=== PATIENT | female | born 1980 | race African-American/Black ===

== ENCOUNTER 2024-01-14 12:21 | Emergency (ER) | payer OTHER ==
--- OUTSIDE RECORDS SUMMARY | 2024-01-14 12:23 | XMS REPORT | Continuity of Care Document ---
Author Name Unknown Address [address] [facility] [address] [place], [place] [id number] [place] [address] [facility] Address [address] [facility] [address] [place] [address] Care Team Providers Care Drug Coordinator Name Role Phone Pcp, Patient Does Not Have A Primary Care Physic mikala Campaigns, Generic Provider Attending Clinician Unavailable ALEXANDRE SNYDER Attending Clinician UnavailALEXANDRE Pichardo Attending Clinician UnavailAlexandre Pichardo MD Attending Clinician Silvino Bae MD Attending Clinician [phone] SILVINO BAE Attending Clinician Unavailable SILVINO BAE Attending Clinician Unavailable ADAM RHODES Admitting Clinician UnavailSILVINO Knight Admitting Clinician Unavailable Payers Payer Name Policy Type Policy Number Effective Date Expirati on Date Source Allergies, Adverse Reactions, Alerts Allergy Name Allergy Type Status Severity Reaction(s) Onset Date Inactive Date Treating Clinician Comments Source Shellfis h Derived Propensi ty to adverse reaction s Active Anaphylaxis 10-17 00:00: 00 [facility] PROCHLOR PERAZINE DRUG INGREDI Active Anaphylaxis - 00:00: 00 [facility] SHELLFIS H DERIVED DRUG INGREDI Active Anaphylaxis 10-17 00:00: 00 [facility] IODINE DRUG INGREDI Active Anaphylaxis 10-17 00:00: 00 [facility] Prochlor perazine Propensi ty to adverse reaction s Active Anaphylaxis 10-17 00:00: 00 [facility] Iodine Propensi ty to adverse reaction s Active Anaphylaxis 10-17 00:00: 00 [facility] NO KNOWN ALLERGIE S Drug Class Active [facility] Social History Social Habit Start Date Stop Date Quantity Comments Source Sexual orientation U [facility] Sex assigned at 1980 00:00:00 1980 00:00:00 [facility] Smoking Status Start Date Stop Date Source Tobacco smoking consumption unknown [facility] Medications Ordered Medication Name Filled Medication Name Start Date Stop Date Current Medication? Ordering Clinician Indication Dosage Frequency Signature (SIG) Comments Components Source predniSONE 20 mg tablet 10-27 00:00: 00 11-01 04:59 :00 Yes [id number] 40mg Take 2 tablets by mouth in the morning for 4 days. [facility] furosemide (LASIX) injection 40 mg 10-26 23:15: 00 10-26 23:40 :00 No 40mg 40 mg, IV Push, ONCE, 1 dose, On Tue10/27/23 at 1815, VALENTINE [facility] ipratropium -albuteroL (DUONEB) 0.5 mg-3 mg(2.5 mg base)/3 mL nebulizer solution 3 mL 10-26 23:00: 00 10-26 22:21 :00 No 3mL 3 mL, Inhalation , ONCE, 1 dose, On Liyah 10/27/23 at 1800, Routine [facility] dexamethaso ne sod phos PF injection 10 mg 10-26 22:15: 00 10-26 22:21 :00 No 10mg 10 mg, Slow IV Push, ONCE, 1 dose, On Liyah 10/27/23 at 1715, 1 mL [facility] furosemide 20 mg tablet 10-26 00:00: 00 11-03 04:59 :00 Yes [id number] 40mg Take 2 tablets by mouth in the morning for 7 days. [facility] magnesium sulfate in water 2 gram/50 mL (4 %) infusion 2 g 10-17 21:15: 00 10-17 21:01 :00 No 2g 2 g, IV Piggyback, Administer over 15 Minutes, ONCE, 1 dose, On Tue10/18/23 at 1615, Routine [facility] methocarbam oL (ROBAXIN) injection 1,000 mg 10-17 19:45: 00 10-17 20:01 :00 No 1000mg 1,000 mg, Slow IV Push, Administer over 3-5 Minutes, ONCE, 1 dose, On Tue10/18/23 at 1445, Routine [facility] ketorolac (TORADOL) injection 15 mg 10-17 19:45: 00 10-17 19:58 :00 No 15mg 15 mg, Slow IV Push, ONCE, 1 dose, On Tue10/18/23 at 1445, Routine [facility] meclizine (TRAVEL-EAS E (MECLIZINE) ) tablet 25 mg 10-17 19:00: 00 10-17 19:58 :00 No 25mg 25 mg, Oral, ONCE, 1 dose, On Tue10/18/23 at 1400, VALENTINE [facility] meclizine 25 mg tablet 10-17 00:00: 00 Yes [id number] 25mg Take 1 tablet by mouth 3 (three) times daily as needed for Dizziness or Nausea. [facility] methocarbam oL 750 mg tablet 10-17 00:00: 00 Yes [id number] 750mg Take 1 tablet by mouth 4 (four) times daily. [facility] Vital Signs Vital Name Observation Time Observation Value Comments S ourmonica Systolic blood pressure 2023-10-27 21:54:00 140 mm[Hg] [facility] Diastolic blood pressure 2023-10-27 21:54:00 89 mm[Hg] [facility] Heart rate 2023-10-27 21:54:00 69 /min [facility] Respiratory rate 2023-10-27 21:54:00 18 /min [facility] Oxygen saturation in Arterial blood by Pulse oximetry 2023-10-27 21:54:00 97 /min [facility] Body temperature 2023-10-27 18:20:00 36.94 Natty [facility] Body height 2023-10-27 18:17:00 157.5 cm [facility] Body weight 2023-10-27 18:17:00 122.471 kg [facility] BMI 2023-10-27 18:17:00 49.38 kg/m2 [facility] Heart rate 2023-10-18 21:45:00 78 /min [facility] Oxygen saturation in Arterial blood by Pulse oximetry 2023-10-18 21:45:00 99 /min [facility] Systolic blood pressure 2023-10-18 21:30:00 118 mm[Hg] [facility] Diastolic blood pressure 2023-10-18 21:30:00 75 mm[Hg] [facility] Respiratory rate 2023-10-18 21:30:00 18 /min [facility] Body height 2023-10-18 17:38:00 157.5 cm [facility] Body temperature 2023-10-18 17:37:00 36.28 Natty [facility] Body weight 2023-10-18 17:37:00 122.471 kg [facility] BMI 2023-10-18 17:37:00 49.38 kg/m2 [facility] Procedures Procedure Date / Time Performed Performing Clinicia n Source POCT GLUCOSE (AUTOMATED) 2023-10-27 21:53:00 Alexandre Snyder [facility] TROPONIN I 2023-10-27 20:08:00 Jignesh Castro [facility] COMP. METABOLIC PANEL ([id number]) 2023-10-27 20:08:00 Jignesh Castro [facility] CBC WITH DIFF 2023-10-27 20:08[facility] 2023-10-27 20:08[facility] 2023-10-27 18:58:00 [facility] 2023-10-18 20:50:00 [facility] CHEST 2 VW 2023-10-18 19:55:35 Lila Cooper [facility] TROPONIN I 2023-10-18 19:47:00 [facility] COMP. METABOLIC PANEL ([id number]) 2023-10-18 19:47:00 Lila Cooper [facility] CBC WITH DIFF 2023-10-18 19:47:00 Lila Cooper [facility] N-TERMINAL PRO-BNP 2023-10-18 19:47:00 Lila Cooper [facility] CT HEAD WO CONTRAST 2023-10-18 19:34:52 Nicki Cooper [facility] Encounters Start Date/Time End Date/Time Encounter Type Admission Type Attending [facility] Care Department Encounter ID Source 2023-11-30 17:10:57 2023-11-30 17:10:57 Outpatient SFA SFA [id number] Alexandre Gusman 2023-11-09 00:00:00 2023-11-09 11:47:00 Letter (Out) Campaigns, Generic Provider Campaigns, Generic Provider [facility] ([facility]) 1..840.114 [id number] [id number] [facility] 2023-10-27 13:21:00 2023-10-27 18:47:00 Emergency X ALEXANDRE SNYDER [facility] ERT [id number] [facility] 2023-10-27 13:21:00 2023-10-27 18:47:00 Emergency Alexandre Snyder [facility] ..840.114 [id number] [facility] 2023-10-18 12:39:00 2023-10-18 17:18:00 Emergency Silvino Bae [facility] 1..840.114 [id number] [id number] [facility] 2023-10-18 12:39:00 2023-10-18 17:18:00 Emergency X FABIAN, SILVINO BAE, SILVINO [facility] ERT [id number] [facility] Results Test Description Test Time Test Comments Results Result Co mments Source [facility] [id number] 19:25:37PROCEDURE: XR CHEST 1 VW 10/27/2023 1:50 PM CLINICAL INDICATION: sob COMPARISON: Radiograph of 10/18/2023 FINDINGS: The lungs are clear. There is no pleural effusion. ?No pneumothorax. The cardiac size is normal. Left chest wall cardiac pacer leads overlyingright atrium and right ventricle. No aggressive osseous lesion. [facility] [id number] 21:43:24EXAM: XR CHEST 2 VW COMPARISON: None HISTORY: Stated history of pseudotumor cerebri, presented withdizziness. FINDINGS: Left chest wall pacemaker is noted, with leads terminating in the rightatrium and right ventricle. Lungs: The lungs are well expanded and clear. No focal opacity. No pleuralabnormality. Heart/Mediastinum: The cardiomediastinal silhouette is normal toborderline. Bones and soft tissues: No acute osseous abnormality is visualized.[facility] [id number] 20:34:21* Test Item Value Reference Range Interpretation Comme [facility] NT-proBNP (test code = 78457-3) 88 pg/mL <=125 Lab Interpretation (test cod e = 60753-0) [facility] [id number] 20:34:21* Test Item Value Reference Range Interpretation Comme nts TROPONIN I (test code = 7883867009) 0.009 ng/mL <=0.034 YAMIL (test code = YAMIL) Reference (Normal) Range (defined by the 99th percentile reference limit): <= 0.034 ng/mL Note: Cardiac troponin begins to rise 3-4 hours after the onset of ischemia. Repeat in 4-6 hours if the sample was drawn within 3-4 hours of the onset of the symptom and found normal. Diagnosis of myocardial injury is made with acute changes in cTn concentrations with at least one serial sample above the 99th percentile upper reference limit (URL), taken together with the patient's clinical presentation. Biotin has been reported to cause a negative bias, interpret results relative to patient's use of biotin. Lab Interpretation (test code = 70395-7) Normal [facility]. METABOLIC PANEL ([id number])2023-10-18 20:23:56* Test Item Value Reference Range Interpretation Comme nts NA (test code = 0131928674) 142 mmol/L 135-145 K (test code = 7264146174) 4.4 mmol/L 3.5-5.0 Slight hemolysis CL (test code = 7915504634) 109 mmol/L 98-108 H CO2 TOTAL (test code = 6000555459) 22 mmol/L 23-31 L AGAP (test code = 0640168211) 11 2-16 BUN (test code = 5036065177) 15 mg/dL 7-23 Slight hemolysis GLUCOSE (test code = 2754173985) 147 mg/dL 70-110 H CREATININE (test code = 2160-0) 0.87 mg/dL 0.50-1.04 TOTAL BILI (test code = 7045544884) 0.5 mg/dL 0.1-1.1 CALCIUM (test code = 3907367314) 8.6 mg/dL 8.6-10.6 T PROTEIN (test code = 0648621000) 7.0 g/dL 6.3-8.2 ALBUMIN (test code = 1219459690) 4.0 g/dL 3.5-5.0 ALK PHOS (test code = 8019003843) 74 U/L 34-122 Slight hemolysis ALTv (test code = 1742-6) 36 U/L 5-35 H AST(SGOT) (test code = 7679705515) 36 U/L 13-40 Slight hemolysis eGFR (test code = 98757-4) 83.9 mL/min/1.73m2 CKD-EPI eGFR (2020). Assuming creatinine has been stable day-to-day for at least three months, the eGFR indicates Category G2 (60 - 89 mL/min/1.73 m2) Lab Interpretation (test code = 81254-2) Abnormal [facility] WITH [id number] 20:13:16* Test Item Value Reference Range Interpretation Comme nts WBC (test code = 6690-2) 5.61 4.30-11.10 RBC (test code = 789-8) 4.30 3.93-5.25 HGB (test code = 718-7) 11.0 g/dL 11.6-15.0 L HCT (test code = 4544-3) 35.9 % 35.7-45.2 MCV (test code = 787-2) 83.5 fL 80.6-95.5 MCH (test code = 785-6) 25.6 pg 25.9-32.8 L MCHC (test code = 786-4) 30.6 g/dL 31.6-35.1 L RDW-SD (test code = 80745-0) 60.7 fL 39.0-49.9 H RDW-CV (test code = 788-0) 20.3 % 12.0-15.5 H PLT (test code = 777-3) 227 166-358 MPV (test code = 82986-8) 9.7 fL 9.5-12.9 NRBC/100 WBC (test code = 7364614201) 0.0 0.0-10.0 NRBC x10^3 (test code = 0300890654) See_Comment [Automated messa ge] The system which generated this result transmitted reference range: 10*3/?L. The reference range was not used to interpret this result as normal/abnormal. GRAN MAT (NEUT) % (test code = 770-8) 60.7 % IMM GRAN % (test code = 3433707184) 0.70 % LYMPH % (test code = 736-9) 30.5 % MONO % (test code = 5905-5) 5.3 % EOS % (test code = 713-8) 2.3 % BASO % (test code = 706-2) 0.5 % GRAN MAT x10^3(ANC) (test code = 6123036520) 3.40 10*3/uL 1.88-7.09 IMM GRAN x10^3 (test code = 6048019268) 0.04 10*3/uL 0.00-0.06 LYMPH x10^3 (test code = 731-0) 1.71 10*3/uL 1.32-3.29 MONO x10^3 (test code = 742-7) 0.30 10*3/uL 0.33-0.92 L EOS x10^3 (test code = 711-2) 0.13 10*3/uL 0.03-0.39 BASO x10^3 (test code = 704-7) 0.03 10*3/uL 0.01-0.07 Lab Interpretation (test code = 33935-5) [facility] [id number] 19:45:09CT HEAD WO CONTRAST HISTORY: Dizziness, persistent/recurrent, cardiac or vascular causesuspected Headache, chronic, new features or increased frequency COMPARISON: None. TECHNIQUE: Nonenhanced CT scan of the head was done in multiple dimensions. FINDINGS: The ventricles and cerebral sulci are normal in caliber and configuration.No hydrocephalus, midline shift or pathological extra- axial fluidcollection is present. The basal cisterns are unremarkable. There is no acute intracranial hemorrhage orsignificant mass effect. Noparenchymal attenuation abnormality. The brown-white matter differentiationis preserved. The mastoid air cells and visualized paranasal air sinuses are clear. Thecalvarium and central skull base are unremarkable.[facility] Notes Date/Time Note Provider Source 2023-10-27 18:27:00 Patient given printed and verbal discharge instructions regarding CHF , encouraged hydration and proper nutrition. Prescriptions provided: LASIX; PREDNISONE Discussed indications, side effects and expected therapeutic response to medications. Advised to take until completed unless adverse reaction occurs - if occurs, discontinue medication and follow up with PCP /seek medical attention. Patient verbalized understanding of instructions. Patient is awake alert oriented, respirations even & unlabored, skin warm & dry, color appropriate for race, moves all extremities well, patient encouraged to follow up with PCP and keep all appropriate appointments as otherwise scheduled or to return to ED for new, prolonged, or worsening of symptoms. No adverse reaction to meds given in ER noted upon discharge. PIV DC'd without complications, site appears healthy, hemostatic, pressure dressing applied to site, catheter intact. Patient departed ED ambulatory with steady gait with adult friend, in possession of all belongings. Celina Mcdermott RN [facility] 2023-10-27 13:16:40 Makeda Bach is a 43 year old female presents via WC c/o SOB and fluid overload r/t to her CHF. Pt reports not being on lasix due to previous doctor recommendations d/t "kidney failure". Last lasix dose was 3 months ago, and hasn't had breathing treatments for several weeks. Pt reports 9/10 bilateral leg pain due to swelling. Pt has moderate swelling noted to both legs. Pt resp e/u on RA. EKG in triage. Pt to room for eval Brooklynn Baird RN [facility] 2023-10-18 17:11:43 Patient discharged with steady gait alert and oriented x 4 with discharge instructions no further questions asked Juan Jose Brandon RN [facility] 2023-10-18 14:26:[address] [facility] 2023-10-18 12:35:53 Makeda Bach is a 43 year old female presenting to ED with c/o headache. Patient reports has been ongoing x4 months. Patient states that she is from [place] and states that she was diagnosed with a "pseudotumor" which is causing pain down her neck and migraines. Patient to green chairs due to ED saturation [facility]
--- NOTE | 2024-01-14 13:22 | RAD REPORT ---
EXAMINATION: CT HEAD WITHOUT CONTRAST CLINICAL INDICATION: Female, 43 years old.HEADACHE TECHNIQUE: Axial CT images from the skull base to the vertex without intravenous contrast. Coronal an d sagittal reformatted images were created from the data set. One or more of the following dose reduction techniques were used: Automated exposure control, adjustment of the mA and/or kV according to patient size, and/or iterative reconstruction. Unless otherwise specified, incidental findings do not require dedicated imaging follow-up. [id number]. COMPARISON: 12/29/2023 FINDINGS: INTRACRANIAL: No acute intracranial hemorrhage. No hydrocephalus. No mass effect or midline shift. No significant white matter disease. VASCULATURE: No visualized abnormalities in the arteries or dural venous sinuses. SCALP/SKULL: No significant soft tissue or osseous abnormalities. SINUSES: The visualized paranasal sinuses and mastoid air cells are predominantly clear. IMPRESSION: No acute intracranial abnormality.
[2024-01-14] MEDS ORDERED: dexAMETHasone 10 MG/ML VIAL ONE (13:37)
[2024-01-14] MEDS ORDERED: METOCLOPRAMIDE 10 MG/2mL INJ ONE (13:37)
[2024-01-14] MEDS ORDERED: DIPHENHYDRAMINE 50 MG/ML VIAL ONE (13:37)
[2024-01-14] MEDS ORDERED: KETOROLAC 30 MG/ML INJ ONE (13:37)
[2024-01-14] MEDS ORDERED: NA CHLORIDE 0.9% 500 ML ONE (13:38)
[2024-01-14 13:40] LABS: Absolute Eosinophils 0.2 K/uL (0-0.5); Absolute Lymphocytes (CBC) 1.4 K/uL (0.7-4.9); Absolute Monocytes 0.6 K/uL (0.1-1.3); Absolute Neutrophil 4.7 K/uL (1.8-8.0); Basophils % 0.6 % (0-1.3); Eosinophils % 3.4 % (0-4.4); Hematocrit 41.4 % (36.0-45.0); Hemoglobin 13.1 g/dL (12.0-15.0); Lymphocytes % 20.8 % (15.3-44.8); MCH 26.8 pg (27.0-35.0); MCHC 31.5 g/dL (32.0-36.0); MCV 85.1 fL (80-100); MPV 8.5 fL (7.6-11.3); Monocytes % 8.2 % (3.3-12.3); Platelets 221 thou/uL (152-406); RBC Red Blood Cell Count 4.87 M/uL (3.86-4.86); Red Cell Distribution Width 19.4 % (12.1-15.2)
[2024-01-14 14:04] LABS: Albumin 3.5 g/dL (3.4-5.0); Albumin/Globulin Ratio 0.8 (1.1-1.8); Anion Gap 8.7 mEq/L (5.0-15.0); Bilirubin Total 0.3 mg/dL (0.2-1.0); Ferritin 24.8 ng/mL (8-252); Globulin 4.5 g/dL (2.3-3.5); Potassium 3.7 mEq/L (3.5-5.1)
--- NOTE | 2024-01-14 14:45 | ER ---
Nurse's Notes [facility] Name: Ninoska Bach Age: 43 yrs Sex: Female : 1980 Arrival Date: 01/14/2024 Time: 12:21 Bed 14 Private MD: Diagnosis: Headache Presentation: 01/13 12:32 Chief complaint: EMS states: headache since last night, with nausea. Has pseudotumor. tm6 50mcg fentanyl given by EMS. Coronavirus screen: Client denies travel out of the [place] in the last 14 days. Ebola Screen: Patient negative for fever greater than or equal to 101.5 degrees Fahrenheit, and additional compatible Ebola Virus Disease symptoms Patient denies exposure to infectious person. Patient denies travel to an Ebola-affected area in the 21 days before illness onset. No symptoms or risks identified at this time. Initial Sepsis Screen: Does the patient meet any 2 criteria? No. Patient's initial sepsis screen is negative. Does the patient have a suspected source of infection? No. Patient's initial sepsis screen is negative. Risk Assessment: Do you want to hurt yourself or someone else? Patient reports no desire to harm self or others. Onset of symptoms was January 13, 2024. Care prior to arrival: Medication(s) given: 50mcg fentanyl. 12:32 Method Of Arrival: EMS: [facility] tm6 12:32 Acuity: MONSERRAT 3 tm6 Triage Assessment: 12:37 General: Appears uncomfortable, Behavior is cooperative. Pain: Complains of pain in tm6 head Pain currently is 10 out of 10 on a pain scale. Pain began 1 day ago. EENT: No signs and/or symptoms were reported regarding the EENT system. Neuro: Level of Consciousness is awake, alert, obeys commands, Oriented to person, place, time, situation, Reports headache since yesterday photophobia. Cardiovascular: Patient's skin is warm and dry. Respiratory: Airway is patent Respiratory effort is even, unlabored, Respiratory pattern is regular, symmetrical. GI: Abdomen is obese, Reports nausea. : No signs and/or symptoms were reported regarding the genitourinary system. Derm: No signs and/or symptoms reported regarding the dermatologic system. Musculoskeletal: No signs and/or symptoms reported regarding the musculoskeletal system. STRING LASTER: 12:37 LMP N/A - Hysterectomy, Not tm6 Historical: - Allergies: 12:37 Compazine; tm6 12:37 Iodine; tm6 12:37 SHELLFISH; tm6 - PMHx: 12:37 Congestive heart failure; Degenerative disc disease; diabetes mellitus; Sleep Apnea; tm6 Bronchitis; Seizure; pseudotumor; Migraine; - PSHx: 12:37 pacemaker; Total abdominal hysterectomy; Cholecystectomy; kidney stent; tm6 - Immunization history:: Flu vaccine is not up to date. - Infectious Disease History:: Denies. - Social history:: Smoking status: Patient denies any tobacco usage or history of. Screenin:[facility] ED Fall Risk Assessment (Adult) History of falling in the last 3 months, tm6 including since admission No falls in past 3 months (0 pts) Confusion or Disorientation No (0 pts) Intoxicated or Sedated No (0 pts) Impaired Gait No (0 pts) Mobility Assist Device Used No (0 pt) Altered Elimination No (0 pt) Score/Fall Risk Level 0 - 2 = Low Risk Oriented to surroundings, Maintained a safe environment, Educated pt \T\ family on fall prevention, incl call for assistance when getting out of bed. Abuse screen: Denies threats or abuse. Denies injuries from another. Nutritional screening: No deficits noted. Tuberculosis screening: No symptoms or risk factors identified. Assessment: 13:03 Reassessment: see triage assessment. tm6 15:10 Reassessment: Patient and/or family updated on plan of care and expected duration. Pain tm6 level reassessed. Patient is alert, oriented x 3, equal unlabored respirations, skin warm/dry/pink. Vital Signs: 12:32 BP 141 / 73; Pulse 69; Resp 19; Temp 98.1(O); Pulse Ox 98% on R/A; MAP 91 mmHg; Weight tm6 124.74 kg; Height 5 ft. 2 in. ; Pain 10/10; 13:46 BP 131 / 74; Pulse 70; Pulse Ox 100% on R/A; MAP 91 mmHg; Pain 8/10; tm6 15:09 BP 121 / 84; Pulse 79; Resp 19; Temp 98.1; Pulse Ox 97% on R/A; MAP 94 mmHg; Pain 5/10; tm6 12:32 Body Mass Index 50.30 (124.74 kg, 157.48 cm) tm6 12:32 Pain Scale: Adult tm6 13:46 Pain Scale: Adult tm6 15:09 Pain Scale: Adult tm6 Edna Coma Score: 14:42 Eye Response: spontaneous(4). Motor Response: obeys commands(6). Verbal Response: kb oriented(5). Total: 15. ED Course: 12:26 Patient arrived in ED. sp 12:26 Cayla Heard FNP-C is [facility]. kb 12:26 Vadim Esquivel MD is Attending Physician. kb 12:32 Lorri Fragoso RN is Primary Nurse. tm6 12:36 Triage completed. tm6 12:37 Arm band placed on right wrist. tm6 13:03 Missed attempt(s): 20 gauge in left antecubital area. Bleeding controlled, band aid tm6 applied, catheter tip intact. 13:10 CT Head Brain wo Cont In Process Unspecified. EDMS 13:32 CMP Sent. em1 13:32 CBC with Diff Sent. em1 13:32 Iron Level Sent. em1 13:33 Initial lab(s) drawn, by me, sent to lab. Inserted saline lock: 22 gauge in right hand, em1 using aseptic technique. Blood collected. Flushed with 10 mL NS. 13:47 Patient has correct armband on for positive identification. Bed in low position. Call tm6 light in reach. Side rails up X2. Provided Education on: use of call arellano. Client placed on continuous cardiac and pulse oximetry monitoring. NIBP monitoring applied. Pulse ox on. NIBP on. Door closed. Noise minimized. Lights dimmed. Warm blanket given. Pillow given. 15:10 No provider procedures requiring assistance completed. IV discontinued, intact, tm6 bleeding controlled, No redness/swelling at site. Pressure dressing applied. Administered Medications: 13:45 Drug: metoCLOPramide IVP 10 mg IVP once; over 1 to 2 minutes Route: IVP; Site: right tm6 hand; 14:51 Follow up: Response: No adverse reaction tm6 13:45 Drug: diphenhydrAMINE IVP 12.5 mg IVP once Route: IVP; Site: right hand; tm6 14:51 Follow up: Response: No adverse reaction tm6 13:45 Drug: Ketorolac IVP 15 mg IVP once Route: IVP; Site: right hand; tm6 14:51 Follow up: Response: No adverse reaction tm6 13:46 Drug: NS 0.9% IV 500 ml 500 ml IV at 1 bolus once; to be given as a bolus over 30 tm6 minutes Volume: 500 ml; Route: IV; Rate: 1 bolus; Site: right hand; 14:51 Follow up: Response: No adverse reaction; IV Intake: 500ml tm6 15:00 Follow up: IV Status: Completed infusion; IV Intake: 500ml tm6 13:46 Drug: Decadron - Dexamethasone IVP 10 mg IVP once Route: IVP; Site: right hand; tm6 14:51 Follow up: Response: No adverse reaction tm6 Medication: 13:03 VIS not applicable for this client. tm6 Intake: 14:51 IV: 500ml; Total: 500ml. tm6 15:00 IV: 500ml; Total: 1000ml. tm6 Outcome: 14:45 Discharge ordered by . samir 15:10 Discharged to home via wheelchair, with family, tm6 15:10 Condition: stable 15:10 Discharge instructions given to patient, family, Instructed on discharge instructions, follow up and referral plans. medication usage, Demonstrated understanding of instructions, follow-up care, medications, Prescriptions given X 2, 15:10 Patient left the ED. tm6 Signatures: Dispatcher [employer] Cayla Carranza, ATILIO DOW-Frances Muir Eric em1 Lorri Fragoso, CATRACHO RN tm6
--- NOTE | 2024-01-14 14:45 | EDPHYS ---
Physician Documentation [facility] Name: Ninoska Bach Age: 43 yrs Sex: Female : 1980 Arrival Date: 01/14/2024 Time: 12:21 Bed 14 Private MD: ED Physician Vadim Esquivel HPI: 01/13 14:43 This 43 yrs old Black Female presents to ER via EMS with complaints of Headache. kb 14:43 Pt is a 43 year old female who presents for headache that started last night. Reports kb history of migraines and states this feels the same as previous. Reports nausea, photophobia. Pain aggravated by noise and movement. No alleviating factors. states pt has pseudotumor cerebri and is supposed to see a neurosurgeon. States he has contacted one in [place] and plans to follow up, awaiting referral. Also reports pt has low iron levels so would like those checked. . 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 - Infectious Disease History:: Denies. - Social history:: Smoking status: Patient denies any tobacco usage or history of. ROS: 14:42 Constitutional: As per HPI kb Exam: 14:42 Constitutional: This is a well developed, well nourished patient who is awake, alert, kb and in no acute distress. Head/Face: Normocephalic, atraumatic. ENT: Moist Mucous membranes Cardiovascular: Regular rate Respiratory: Respirations even and unlabored. No increased work of breathing. Talking in full sentences Abdomen/GI: Soft, non-tender. No distention Skin: Warm, dry with normal turgor. Normal color. MS/ Extremity: Pulses equal, no cyanosis. Neurovascular intact. Full, normal range of motion. Neuro: Awake and alert, GCS 15, oriented to person, place, time, and situation. Vital Signs: 12:32 BP 141 / 73; Pulse 69; Resp 19; Temp 98.1(O); Pulse Ox 98% on R/A; MAP 91 mmHg; Weight tm6 124.74 kg; Height 5 ft. 2 in. ; Pain 10/10; 13:46 BP 131 / 74; Pulse 70; Pulse Ox 100% on R/A; MAP 91 mmHg; Pain 8/10; tm6 15:09 BP 121 / 84; Pulse 79; Resp 19; Temp 98.1; Pulse Ox 97% on R/A; MAP 94 mmHg; Pain 5/10; tm6 12:32 Body Mass Index 50.30 (124.74 kg, 157.48 cm) tm6 12:32 Pain Scale: Adult tm6 13:46 Pain Scale: Adult tm6 15:09 Pain Scale: Adult tm6 Edna Coma Score: 14:42 Eye Response: spontaneous(4). Motor Response: obeys commands(6). Verbal Response: kb oriented(5). Total: 15. MDM: 12:27 Medical Screening Exam initiated kb 14:42 Differential diagnosis: migraine, Pseudotumor cerebri. Data reviewed: vital signs, kb nurses notes. Historians other than the Patient: Spouse/Significant Other: . Counseling: I had a detailed discussion with the patient and/or guardian regarding the historical points, exam findings, and any diagnostic results supporting the discharge/admit diagnosis, lab results, radiology results, the need for outpatient follow up, a neurosurgeon, to return to the emergency department if symptoms worsen or persist or if there are any questions or concerns that arise at home. 01/13 12:34 Order name: CBC with Diff; Complete Time: 14:14 kb 01/13 12:34 Order name: CMP; Complete Time: 14:04 kb 01/13 13:23 Order name: Iron Level; Complete Time: 14:04 kb 01/13 13:50 Order name: Iron; Complete Time: 14:04 EDMS 01/13 12:34 Order name: CT Head Brain wo Cont; Complete Time: 13:23 kb 01/13 12:34 Order name: IV Start; Complete Time: 13:32 kb 01/13 13:12 Order name: Misc. Order: recollect green top; Complete Time: 13:32 sp Administered Medications: 13:45 Drug: metoCLOPramide IVP 10 mg IVP once; over 1 to 2 minutes Route: IVP; Site: right tm6 hand; 14:51 Follow up: Response: No adverse reaction tm6 13:45 Drug: diphenhydrAMINE IVP 12.5 mg IVP once Route: IVP; Site: right hand; tm6 14:51 Follow up: Response: No adverse reaction tm6 13:45 Drug: Ketorolac IVP 15 mg IVP once Route: IVP; Site: right hand; tm6 14:51 Follow up: Response: No adverse reaction tm6 13:46 Drug: NS 0.9% IV 500 ml 500 ml IV at 1 bolus once; to be given as a bolus over 30 tm6 minutes Volume: 500 ml; Route: IV; Rate: 1 bolus; Site: right hand; 14:51 Follow up: Response: No adverse reaction; IV Intake: 500ml tm6 15:00 Follow up: IV Status: Completed infusion; IV Intake: 500ml tm6 13:46 Drug: Decadron - Dexamethasone IVP 10 mg IVP once Route: IVP; Site: right hand; tm6 14:51 Follow up: Response: No adverse reaction tm6 Disposition Summary: 01/14/24 14:45 Discharge Ordered Notes: Location: Home kb Condition: Stable kb Diagnosis - Headache kb Followup: kb - With: Emergency Department - When: As needed - Reason: Worsening of condition Followup: kb - With: Private Physician - When: 2 - 3 days - Reason: Recheck today's complaints, Continuance of care, Re-evaluation by your physician Discharge Instructions: - Discharge Summary Sheet kb - Migraine Headache, [id number] kb - General Headache Without Cause, Otpl-se-Iyuf kb Forms: - Medication Reconciliation Form kb - Antibiotic Education kb - Prescription Opioid Use kb - Patient Portal Instructions kb - Leadership Thank You Letter kb Prescriptions: - acetaminophen-codeine 300-30 mg Oral tablet - take 1 tablet ORAL route every 6 hours As needed; 12 tablet; Refills: 0, kb Product Selection Permitted - Ferrous Sulfate 325 mg (65 mg Iron) Oral tablet - take 1 tablet ORAL route once daily; 30 tablet; Refills: 0, Product Selection kb Permitted Signatures: Dispatcher [employer] Cayla Carranza FNP-C FNP-Ckb Ely, Frances sp Richmond, Tawney, RN RN tm6
[2024-01-14 15:35] VITALS: TEMP 98.1
[2024-01-14 15:38] VITALS: BP 121/84; O2SAT 97
== END 2024-01-14 15:10 | disposition home or self-care (01) ==
LOC: ER 12:21
DX: R51.9 Headache, unspecified (principal); G93.2 Benign intracranial hypertension
CPT/HCPCS: 96361; 85025; 36415; 82728; 83540; 80053; 70450; 96375; 96374; 99284; J2765; J1200; J1100; J7040

== ENCOUNTER 2024-04-16 23:02 | Emergency (ER) | payer OTHER ==
--- OUTSIDE RECORDS SUMMARY | 2024-04-16 23:05 | XMS REPORT | Continuity of Care Document ---
Author Name Unknown Address [address] [facility] [address] [place], [place] [id number] [place] [address] [facility] Address [address] [facility] [address] [place] [address] Care Team Providers Care Carriage Dogger Name Role Phone Pcp, Patient Does Not Have A Primary Care Physic mikala Campaigns, Generic Provider Attending Clinician Unavailable ALEXANDRE SNYDER Attending Clinician UnavailALEXANDRE Pichardo Attending Clinician UnavailAlexandre Pichardo MD Attending Clinician Silvino Bae MD Attending Clinician [phone] SILVINO BAE Attending Clinician Unavailable SILVINO BAE [...] reaction s Active Anaphylaxis 10-17 00:00: 00 [facility] PROCHLOR PERAZINE DRUG INGREDI Active Anaphylaxis - 00:00: 00 [facility] SHELLFIS H DERIVED DRUG INGREDI Active Anaphylaxis 10-17 00:00: 00 [facility] IODINE DRUG INGREDI Active Anaphylaxis 10-17 00:00: 00 [facility] Prochlor perazine Propensi ty to adverse reaction s Active Anaphylaxis - 00:00: 00 [facility] Iodine Propensi ty to adverse reaction s Active Anaphylaxis 10-17 00:00: 00 [facility] NO KNOWN ALLERGIE S Drug Class Active [facility] Social History Social Habit Start Date Stop Date Quantity Comments Source Sexual orientation [facility] Sex assigned at 1980 00:00:00 1980 00:00:00 [facility] Smoking Status Start Date Stop Date Source Tobacco smoking consumption unknown [facility] Medications Ordered Medication Name Filled Medication Name Start Date Stop Date Current Medication? Ordering Clinician Indication Dosage Frequency Signature (SIG) Comments Components Source predniSONE 20 mg tablet 10-27 00:00: 00 11-01 04:59 :00 No [id number] 40mg Take 2 tablets by mouth in the morning for 4 days. [facility] furosemide (LASIX) injection 40 mg 10-26 23:15: 00 10-26 23:40 :00 No 40mg 40 mg, IV Push, ONCE, 1 dose, On Tue10/27/23 at 1815, VALENTINE [facility] ipratropium -albuteroL (DUONEB) 0.5 mg-3 mg(2.5 mg base)/3 mL nebulizer solution 3 mL 10-26 23:00: 00 10-26 22:21 :00 No 3mL 3 mL, Inhalation , ONCE, 1 dose, On Liyah 10/27/23 at 1800, Routine [facility] dexamethaso ne sod phos PF injection 10 mg 10-26 22:15: 00 10-26 22:21 :00 No 10mg 10 mg, Slow IV Push, ONCE, 1 dose, On Liyah 10/27/23 at 1715, 1 mL [facility] furosemide 20 mg tablet 10-26 00:00: 00 11-03 04:59 :00 No [id number] 40mg Take 2 tablets by mouth in the morning for 7 days. [facility] magnesium sulfate in water 2 gram/50 mL (4 %) infusion 2 g 10-17 21:15: 00 10-17 21:01 :00 No 2g 2 g, IV Piggyback, Administer over 15 Minutes, ONCE, 1 dose, On Tue10/18/23 at 1615, Routine [facility] methocarbam oL (ROBAXIN) injection 1,000 mg 10-17 19:45: 00 10-17 20:01 :00 No 1000mg 1,000 mg, Slow IV Push, Administer over 3-5 Minutes, ONCE, 1 dose, On Tue10/18/23 at 1445, Routine [facility] ketorolac (TORADOL) injection 15 mg 10-17 19:45: 00 10-17 19:58 :00 No 15mg 15 mg, Slow IV Push, ONCE, 1 dose, On Tue10/18/23 at 1445, Routine [facility] meclizine (TRAVEL-EAS E (MECLIZINE) ) tablet 25 mg 10-17 19:00: 00 10-17 19:58 :00 No 25mg 25 mg, Oral, ONCE, 1 dose, On Tue10/18/23 at 1400, VALENTINE [facility] meclizine 25 mg tablet 10-17 00:00: 00 Yes [id number] 25mg Take 1 tablet by mouth 3 (three) times daily as needed for Dizziness or Nausea. [facility] methocarbam oL 750 mg tablet 10-17 00:00: 00 Yes [id number] 750mg Take 1 tablet by mouth 4 (four) times daily. [facility] Vital Signs Vital Name Observation Time Observation Value Comments S ourmonica Systolic blood pressure 2023-10-27 21:54:00 140 mm[Hg] [facility] Diastolic blood pressure 2023-10-27 21:54:00 89 mm[Hg] [facility] Heart rate 2023-10-27 21:54:00 69 /min [facility] Respiratory rate 2023-10-27 21:54:00 18 /min [facility] Oxygen saturation in Arterial blood by Pulse oximetry 2023-10-27 21:54:00 97 /min [facility] Body temperature 2023-10-27 18:20:00 36.94 Natty [facility] Body height 2023-10-27 18:17:00 157.5 cm [facility] Body weight 2023-10-27 18:17:00 122.471 kg [facility] BMI 2023-10-27 18:17:00 49.38 kg/m2 [facility] Heart rate 2023-10-18 21:45:00 78 /min [facility] Oxygen saturation in Arterial blood by Pulse oximetry 2023-10-18 21:45:00 99 /min [facility] Systolic blood pressure 2023-10-18 21:30:00 118 mm[Hg] [facility] Diastolic blood pressure 2023-10-18 21:30:00 75 mm[Hg] [facility] Respiratory rate 2023-10-18 21:30:00 18 /min [facility] Body height 2023-10-18 17:38:00 157.5 cm [facility] Body temperature 2023-10-18 17:37:00 36.28 Natty [facility] Body weight 2023-10-18 17:37:00 122.471 kg [facility] BMI 2023-10-18 17:37:00 49.38 kg/m2 [facility] Procedures Procedure Date / Time Performed Performing Clinicia n Source POCT GLUCOSE (AUTOMATED) 2023-10-27 21:53:00 Alexandre Snyder [facility] TROPONIN I 2023-10-27 20:08:00 Jignesh Castro [facility] COMP. METABOLIC PANEL ([id number]) 2023-10-27 20:08:00 Jignesh Castro [facility] CBC WITH DIFF 2023-10-27 20:08:[facility] 2023-10-27 20:08:00 [facility]W 2023-10-27 18:58:00 [facility] 2023-10-18 20:50:00 [facility]ST 2 VW 2023-10-18 19:55:35 Lila Cooper [facility] TROPONIN I 2023-10-18 19:47:00 [facility] COMP. METABOLIC PANEL ([id number]) 2023-10-18 19:47:00 Lila Cooper [facility] CBC WITH DIFF 2023-10-18 19:47:00 Lila Cooper [facility] N-TERMINAL PRO-BNP 2023-10-18 19:47:00 Lila Cooper [facility] CT HEAD WO CONTRAST 2023-10-18 19:34:52 Nicki Cooper [facility] Encounters Start Date/Time End Date/Time Encounter Type Admission Type Attending [facility] Facility Care Department Encounter ID Source 2023-11-30 17:10:57 2023-11-30 17:10:57 Outpatient SFA SFA [id number] Alexandre Gusman 2023-11-09 00:00:00 2023-11-09 11:47:00 Letter (Out) Campaigns, Generic Provider Campaigns, Generic Provider [facility] ([place]) 1..840.114 [id number] [facility] 2023-10-27 13:21:00 2023-10-27 18:47:00 Emergency X ALEXANDRE SNYDER STEPHEN [facility] ERT [id number] [facility] 2023-10-27 13:21:00 2023-10-27 18:47:00 Emergency Alexandre Snyder [facility] ..840.114 [id number] [facility] 2023-10-18 12:39:00 2023-10-18 17:18:00 Emergency Silvino Bae [facility] 1..840.114 [id number] [facility] 2023-10-18 12:39:00 2023-10-18 17:18:00 Emergency X FABIAN, SILVINO BAE, SILVINO [facility] ERT [id number] [facility] Results Test Description Test Time Test Comments Results Result Co mments Source [facility] [id number] 19:25:37PROCEDURE: XR CHEST 1 VW 10/27/2023 1:50 PM CLINICAL INDICATION: sob COMPARISON: Radiograph of 10/18/2023 FINDINGS: The lungs are clear. There is no pleural effusion. ?No pneumothorax. The cardiac size is normal. Left chest wall cardiac pacer leads overlyingright atrium and right ventricle. No aggressive osseous lesion. [facility] [id number] 21:43:24EXAM: XR CHEST 2 VW COMPARISON: None HISTORY: Stated history of pseudotumor cerebri, presented withdizziness. FINDINGS: Left chest wall pacemaker is noted, with leads terminating in the rightatrium and right ventricle. Lungs: The lungs are well expanded and clear. No focal opacity. No pleuralabnormality. Heart/Mediastinum: The cardiomediastinal silhouette is normal toborderline. Bones and soft tissues: No acute osseous abnormality is visualized.[facility] [id number] 20:34:21* Test Item Value Reference Range Interpretation Comme [facility] NT-proBNP (test code = 23914-7) 88 pg/mL <=125 Lab Interpretation (test cod e = 65684-4) Normal [facility] [id number] 20:34:21* Test Item Value Reference Range Interpretation Comme nts TROPONIN I (test code = 0888354671) 0.009 ng/mL <=0.034 YAMIL (test code = [...] of biotin. Lab Interpretation (test code = 14130-5) Normal [facility]. METABOLIC PANEL ([id number])2023-10-18 20:23:56* Test Item Value Reference Range Interpretation Comme nts NA (test code = 8931374679) 142 mmol/L 135-145 K (test code = 6634673213) 4.4 mmol/L 3.5-5.0 Slight hemolysis CL (test code = 0359141120) 109 mmol/L 98-108 H CO2 TOTAL (test code = 0364192700) 22 mmol/L 23-31 L AGAP (test code = 6376627153) 11 2-16 BUN (test code = 4149426653) 15 mg/dL 7-23 Slight hemolysis GLUCOSE (test code = 0987105520) 147 mg/dL 70-110 H CREATININE (test code = 2160-0) 0.87 mg/dL 0.50-1.04 TOTAL BILI (test code = 3833118208) 0.5 mg/dL 0.1-1.1 CALCIUM (test code = 2892944759) 8.6 mg/dL 8.6-10.6 T PROTEIN (test code = 2685132061) 7.0 g/dL 6.3-8.2 ALBUMIN (test code = 5272553032) 4.0 g/dL 3.5-5.0 ALK PHOS (test code = 8410153727) 74 U/L 34-122 Slight hemolysis ALTv (test code = 1742-6) 36 U/L 5-35 H AST(SGOT) (test code = 2156567233) 36 U/L 13-40 Slight hemolysis eGFR (test code = 93066-6) 83.9 mL/min/1.73m2 CKD-EPI eGFR (2020). Assuming creatinine has been stable day-to-day for at least three months, the eGFR indicates Category G2 (60 - 89 mL/min/1.73 m2) Lab Interpretation (test code = 44216-2) Abnormal [facility] WITH [id number] 20:13:16* Test Item Value Reference Range Interpretation [...] g/dL 31.6-35.1 L RDW-SD (test code = 06906-6) 60.7 fL 39.0-49.9 H RDW-CV (test code = 788-0) 20.3 % 12.0-15.5 H PLT (test code = 777-3) 227 166-358 MPV (test code = 52128-7) 9.7 fL 9.5-12.9 NRBC/100 WBC (test code = 1785304759) 0.0 0.0-10.0 NRBC x10^3 (test code = 1656223635) See_Comment [Automated messa ge] The system which generated this result transmitted reference range: 10*3/?L. The reference range was not used to interpret this result as normal/abnormal. GRAN MAT (NEUT) % (test code = 770-8) 60.7 % IMM GRAN % (test code = 9154682770) 0.70 % LYMPH % (test code = 736-9) 30.5 % MONO % (test code = 5905-5) 5.3 % EOS % (test code = 713-8) 2.3 % BASO % (test code = 706-2) 0.5 % GRAN MAT x10^3(ANC) (test code = 1251033886) 3.40 10*3/uL 1.88-7.09 IMM GRAN x10^3 (test code = 7766978324) 0.04 10*3/uL 0.00-0.06 LYMPH x10^3 (test code = 731-0) 1.71 10*3/uL 1.32-3.29 MONO x10^3 (test code = 742-7) 0.30 10*3/uL 0.33-0.92 L EOS x10^3 (test code = 711-2) 0.13 10*3/uL 0.03-0.39 BASO x10^3 (test code = 704-7) 0.03 10*3/uL 0.01-0.07 Lab Interpretation (test code = 32628-0) [facility] [id number] 19:45:09CT HEAD WO CONTRAST HISTORY: Dizziness, persistent/recurrent, [...] clear. Thecalvarium and central skull base are unremarkable.[facility] Notes Date/Time Note Provider Source 2023-10-27 18:27:00 [...] possession of all belongings. Celina Mcdermott RN [facility] 2023-10-27 13:16:40 Makeda Bach is a 43 [...] to room for eval Brooklynn Baird RN [facility] 2023-10-18 17:11:43 Patient discharged with steady gait alert and oriented x 4 with discharge instructions no further questions asked Juan Jose Brandon RN [facility] 2023-10-18 14:26:[address] [facility] 2023-10-18 12:35:53 Makeda Bach is a 43 year old female presenting to ED with c/o headache. Patient reports has been ongoing x4 months. Patient states that she is from [place] and states that she was diagnosed with a "pseudotumor" which is causing pain down her neck and migraines. Patient to green chairs due to ED saturation [facility]
[2024-04-16 23:50] LABS: Absolute Eosinophils 0.2 K/uL (0-0.5); Absolute Monocytes 0.5 K/uL (0.1-1.3); Absolute Neutrophil 3.6 K/uL (1.8-8.0); Basophils % 0.7 % (0-1.3); Eosinophils % 3.6 % (0-4.4); Hematocrit 38.8 % (36.0-45.0); Hemoglobin 12.8 g/dL (12.0-15.0); Lymphocytes % 31.8 % (15.3-44.8); MCH 27.1 pg (27.0-35.0); MCV 82.3 fL (80-100); MPV 8.2 fL (7.6-11.3); Monocytes % 7.4 % (3.3-12.3); Neutrophils % 56.5 % (41.7-73.7); Nucleated Red Blood Cells % 0.1 % (0-0); Platelets 282 thou/uL (152-406); RBC Red Blood Cell Count 4.72 M/uL (3.86-4.86); Red Cell Distribution Width 17.5 % (12.1-15.2)
[2024-04-16 23:52] LABS: PT Prothrombin Time 12.9 SECONDS (10.0-13.0); Protime INR 1.14
[2024-04-17 00:05] LABS: ALT/SGPT 56 U/L (13-56); AST/SGOT 22 U/L (15-37); Albumin 3.1 g/dL (3.4-5.0); Albumin/Globulin Ratio 0.7 (1.1-1.8); Alkaline Phosphatase 104 U/L (45-117); Anion Gap 8.6 mEq/L (5.0-15.0); BUN Blood Urea Nitrogen 18 mg/dL (7-18); Bicarbonate 24 mEq/L (21-32); Bilirubin Total 0.3 mg/dL (0.2-1.0); Globulin 4.7 g/dL (2.3-3.5); Glomerular Filtration Rate 71 ml/min (=/>90); Glucose Level 158 mg/dL (74-106); NT PRO-BNP 28 pg/mL (<125); Potassium 3.6 mEq/L (3.5-5.1); Protein, Total 7.8 g/dL (6.4-8.2); Sodium Level 139 mEq/L (136-145)
[2024-04-17] MEDS ORDERED: ONDANSETRON 4 MG/2 ML VIAL ONE (00:14)
[2024-04-17] MEDS ORDERED: MORPHINE 4 MG/ML SYR ONE (00:14)
[2024-04-17 00:24] LABS: Bilirubin Direct < 0.2 mg/dL (0-0.2); Bilirubin Indirect, Calculated 0.1 mg/dL (0.2-0.8); Troponin High Sensitivity < 3.0 pg/mL (<58.9)
--- NOTE | 2024-04-17 00:38 | EDPHYS ---
[facility] Name: Ninoska Bach Age: 43 yrs Sex: Female : 1980 Arrival Date: 04/16/2024 Time: 23:02 Bed 14 Private MD: ED Physician Yamile Rodríguez HPI: 04/16 23:22 This 43 yrs old Black Female presents to ER via Wheelchair with complaints of Chest sp3 Pain. 23:22 43-year-old female with a history of diabetes, pseudotumor cerebri, CHF, obstructive sp3 sleep apnea now presents with chest pain. Regarding her pseudotumor, she was diagnosed over the last year in [place]. She has had multiple lumbar punctures for relief. 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 Chest pain started over the last 48 hours and is described as dull in nature and constant. Mild shortness of breath. She denies any other symptoms including fever, cough, syncope, back pain, prolonged immobilization, edema, swelling, or any other signs or symptoms on ROS at this time.. 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 - Infectious Disease History:: Denies. - Social history:: Smoking status: Reported history of juuling and/or vaping. ROS: 23:23 Constitutional: Negative for fever, chills, and weight loss, Eyes: Negative for injury, sp3 pain, redness, and discharge, ENT: Negative for injury, pain, and discharge, Neck: Negative for injury, pain, and swelling, Abdomen/GI: Negative for abdominal pain, nausea, vomiting, diarrhea, and constipation, Back: Negative for injury and pain, MS/Extremity: Negative for injury and deformity, Skin: Negative for injury, rash, and discoloration, Neuro: Negative for headache, weakness, numbness, tingling, and seizure, Psych: Negative for depression, anxiety, suicide ideation, homicidal ideation, and hallucinations, Allergy/Immunology: Negative for hives, rash, and allergies, Endocrine: Negative for neck swelling, polydipsia, polyuria, polyphagia, and marked weight changes, Hematologic/Lymphatic: Negative for swollen nodes, abnormal bleeding, and unusual bruising, 23:23 All other systems are negative, Exam: 23:23 Constitutional: This is a well developed, well nourished patient who is awake, alert, sp3 and in no acute distress. Head/Face: Normocephalic, atraumatic. Eyes: Pupils equal round and reactive to light, extra-ocular motions intact. Lids and lashes normal. Conjunctiva and sclera are non-icteric and not injected. Cornea within normal limits. Periorbital areas with no swelling, redness, or edema. Neck: Trachea midline, no thyromegaly or masses palpated, and no cervical lymphadenopathy. Supple, full range of motion without nuchal rigidity, or vertebral point tenderness. No Meningismus. Chest/axilla: Normal chest wall appearance and motion. Nontender with no deformity. No lesions are appreciated. Cardiovascular: Regular rate and rhythm with a normal S1 and S2. No gallops, murmurs, or rubs. Normal PMI, no JVD. No pulse deficits. Respiratory: Lungs have equal breath sounds bilaterally, clear to auscultation and percussion. No rales, rhonchi or wheezes noted. No increased work of breathing, no retractions or nasal flaring. Abdomen/GI: Soft, non-tender, with normal bowel sounds. No distension or tympany. No guarding or rebound. No evidence of tenderness throughout. Back: No spinal tenderness. No costovertebral tenderness. Full range of motion. Skin: Warm, dry with normal turgor. Normal color with no rashes, no lesions, and no evidence of cellulitis. MS/ Extremity: Pulses equal, no cyanosis. Neurovascular intact. Full, normal range of motion. Neuro: Awake and alert, GCS 15, oriented to person, place, time, and situation. Cranial nerves II-XII grossly intact. Motor strength 5/5 in all extremities. Sensory grossly intact. Cerebellar exam normal. Normal gait. Psych: Awake, alert, with orientation to person, place and time. Behavior, mood, and affect are within normal limits. Vital Signs: 23:11 BP 144 / 91; Pulse 79; Resp 20; Temp 97.9; Pulse Ox 99% ; Weight 117.93 kg; Height 5 me1 ft. 2 in. ; Pain 10/10; 23:15 BP 131 / 91; Pulse 82; Resp 17; Pulse Ox 98% on R/A; rg5 04/17 00:35 BP 122 / 88; Pulse 88; Resp 17; Pulse Ox 97% on R/A; Pain 0/10; rg5 04/16 23:11 Body Mass Index 47.55 (117.93 kg, 157.48 cm) me1 04/16 23:11 Pain Scale: Adult me1 04/17 00:35 Pain Scale: Adult 5 MDM: 04/16 23:12 Medical Screening Exam initiated sp3 23:24 Data reviewed: vital signs, nurses notes, old medical records, lab test result(s), EKG, sp3 radiologic studies. ED course: 43-year-old female with PMH above now with chest pain for 48 hours. Pressure diagnosis includes acute coronary syndrome, angina, CHF, other pulmonary process, pneumonia, pleurisy, skeletal pain, among others. Workup will include chest x-ray, EKG, routine labs including BNP and troponin. Disposition pending workup and patient course.. 04/17 00:37 ED course: Full workup negative inpatient symptoms are fully resolved. With examination sp3 and questioning I believe the pain was really more in the right shoulder. Patient asking to be discharged. We will give her follow-up to our cardiology team here.. 04/16 23:12 Order name: Basic Metabolic Panel; Complete Time: 00:33 sp3 04/16 23:12 Order name: CBC with Diff; Complete Time: 00:12 sp3 04/16 23:12 Order name: LFT's; Complete Time: 00:33 sp3 04/16 23:12 Order name: Magnesium; Complete Time: 00:33 sp3 04/16 23:12 Order name: NT PRO-BNP; Complete Time: 00:33 3 04/16 23:12 Order name: PT-INR; Complete Time: 00:12 3 04/16 23:12 Order name: Troponin HS; Complete Time: 00:33 3 04/16 23:12 Order name: XRAY Chest (1 view) sp3 04/16 23:12 Order name: Cardiac monitoring; Complete Time: 23:31 sp3 04/16 23:12 Order name: EKG - Nurse/Tech; Complete Time: : sp3 04/16 23:12 Order name: IV Saline Lock; Complete Time: :31 sp3 04/16 23:12 Order name: Labs collected and sent; Complete Time: : sp3 04/16 23:12 Order name: O2 Per Protocol; Complete Time: : sp3 04/16 23:12 Order name: O2 Sat Monitoring; Complete Time: : sp3 Administered Medications: 00:15 Drug: morphine IVP or IV 4 mg IVP once over 4 mins Route: IVP; Infused Over: 4 mins; rg5 Site: right antecubital; 00:44 Follow up: Response: No adverse reaction; Pain is decreased rg5 00:15 Drug: Ondansetron IVP 4 mg IVP once; over 2 minutes Route: IVP; Site: right antecubital;rg5 00:43 Follow up: Response: No adverse reaction; Pain is decreased rg5 Disposition Summary: 04/17/24 00:38 Discharge Ordered Notes: Location: Home sp3 Condition: Stable sp3 Diagnosis - Chest pain, unspecified sp3 Followup: sp3 - With: Shravan Desai MD - When: Upon discharge from the Emergency Department - Reason: Recheck today's complaints Discharge Instructions: - Discharge Summary Sheet sp3 - Nonspecific Chest Pain, Adult sp3 Forms: - Medication Reconciliation Form sp3 - Antibiotic Education sp3 - Prescription Opioid Use sp3 - Patient Portal Instructions sp3 - Leadership Thank You Letter sp3 Signatures: Dispatcher [employer] Yamile French MD MD sp3 Zoya Alonso RN RN me1 Noah Medley, CATRACHO RN rg5 Corrections: (The following items were deleted from the chart) 04/16 23:13 23:13 BASIC METABOLIC PANEL+C.LAB.BRZ ordered. EDMS EDMS 23:13 23:13 CBC+H.LAB.BRZ ordered. EDMS EDMS 23:13 23:13 HEPATIC FUNCTION+C.LAB.BRZ ordered. EDMS EDMS 23:13 23:13 MAGNESIUM+C.LAB.BRZ ordered. EDMS EDMS 23:13 23:13 PROBNP+C.LAB.BRZ ordered. EDMS EDMS 23:13 PROTIME (+INR)+COAG.LAB.BRZ ordered. EDMS EDMS 23:13 Troponin High Sensitivity+C.LAB.BRZ ordered. EDMS EDMS 23:13 Chest Single View+RAD.RAD.BRZ ordered. EDMS EDMS
--- NOTE | 2024-04-17 00:38 | ER ---
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 Stabbing pain 10/10 that radiates to her left arm. c/o SOB, has o2 at home prn. States bilateral arms feel heavy and she has felt very fatigued today. Coronavirus screen: Vaccine status: Patient reports being unvaccinated. Ebola Screen: No symptoms or risks identified at this time. Initial Sepsis Screen: Does the patient meet any 2 criteria? No. Patient's initial sepsis screen is negative. Does the patient have a suspected source of infection? No. Patient's initial sepsis screen is negative. Risk Assessment: Do you want to hurt yourself or someone else? Patient reports no desire to harm self or others. Onset of symptoms was April 16, 2024. 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 - Infectious Disease History:: Denies. - Social history:: Smoking status: Reported history of juuling and/or vaping. Screenin:15 [facility] ED Fall Risk Assessment (Adult) History of falling in the last 3 months, rg5 including since admission No falls in past 3 months (0 pts) Confusion or Disorientation No (0 pts) Intoxicated or Sedated No (0 pts) Impaired Gait No (0 pts) Mobility Assist Device Used No (0 pt) Altered Elimination No (0 pt) Score/Fall Risk Level 0 - 2 = Low Risk. Abuse screen: Denies threats or abuse. Nutritional screening: No deficits noted. Tuberculosis screening: No symptoms or risk factors identified. Assessment: 23:15 General: Appears in no apparent distress. Behavior is calm, cooperative, appropriate rg5 for age. 23:15 Pain: Complains of pain in chest Pain radiates to right arm and left arm Pain began rg5 gradually, 4 hours ago. Neuro: Level of Consciousness is awake, alert, obeys commands. Cardiovascular: Reports chest pain, Patient's skin is warm and dry. Rhythm is sinus rhythm. Respiratory: Airway is patent Trachea midline Respiratory effort is even, Respiratory pattern is regular, Breath sounds are clear. GI: Abd is soft and non tender. : No signs and/or symptoms were reported regarding the genitourinary system. EENT: No deficits noted. Derm: Skin is intact, Skin is dry, Skin is normal, Skin temperature is warm. Musculoskeletal: Circulation, motion, and sensation intact. Range of motion: intact in all extremities. 04/17 00:10 Reassessment: No changes from previously documented assessment. Patient and/or family rg5 updated on plan of care and expected duration. Pain level reassessed. Patient is alert, oriented x 3, equal unlabored respirations, skin warm/dry/pink. Vital Signs: 04/16 23:11 BP 144 / 91; Pulse 79; Resp 20; Temp 97.9; Pulse Ox 99% ; Weight 117.93 kg; Height 5 me1 ft. 2 in. ; Pain 10/10; 23:15 BP 131 / 91; Pulse 82; Resp 17; Pulse Ox 98% on R/A; rg5 04/17 00:35 BP 122 / 88; Pulse 88; Resp 17; Pulse Ox 97% on R/A; Pain 0/10; rg5 04/16 23:11 Body Mass Index 47.55 (117.93 kg, 157.48 cm) me1 04/16 23:11 Pain Scale: Adult me1 04/17 00:35 Pain Scale: Adult rg5 ED Course: 04/16 23:11 Patient arrived in ED. [email or web address] 23:12 Yamile Rodríguez MD is Attending Physician. sp3 23:13 Noah Medley, CATRACHO is Primary Nurse. rg5 23:14 Triage completed. me1 23:14 Arm band placed on Patient placed in an exam room. me1 23:15 Patient has correct armband on for positive identification. Bed in low position. Call rg5 light in reach. Side rails up X 1. Client placed on continuous cardiac and pulse oximetry monitoring. NIBP monitoring applied. clinical research monitor on. Pulse ox on. Door closed. Noise minimized. Warm blanket given. 23:15 No provider procedures requiring assistance completed. Inserted saline lock: 20 gauge rg5 in right antecubital area, using aseptic technique. Blood collected. Flushed with 10 mL NS. Patient maintains SpO2 saturation greater than 95% on room air. 04/17 00:00 XRAY Chest (1 view) In Process Unspecified. EDMS 00:37 Shravan Desai MD is Referral Physician. sp3 00:46 Provided Education on: post er care. rg5 00:46 IV discontinued, bleeding controlled, No redness/swelling at site. Pressure dressing rg5 applied. Administered Medications: 00:15 Drug: morphine IVP or IV 4 mg IVP once over 4 mins Route: IVP; Infused Over: 4 mins; rg5 Site: right antecubital; 00:44 Follow up: Response: No adverse reaction; Pain is decreased rg5 00:15 Drug: Ondansetron IVP 4 mg IVP once; over 2 minutes Route: IVP; Site: right antecubital;rg5 00:43 Follow up: Response: No adverse reaction; Pain is decreased rg5 Medication: 04/16 23:15 VIS not applicable for this client. rg5 Outcome: 04/17 00:38 Discharge ordered by . sp3 00:54 Discharged to home ambulatory, rg5 00:54 Condition: stable 00:54 Discharge instructions given to patient, Instructed on discharge instructions, follow up and referral plans. Demonstrated understanding of instructions, follow-up care, 00:56 Patient left the ED. rg5 Signatures: Dispatcher [employer] EDRI Yamile Rodríguez MD MD sp3 Radha Negrete6 Zoya Alonso RN RN me1 Noah Medley, CATRACHO RN rg5
[2024-04-17 01:01] VITALS: TEMP 97.9
[2024-04-17 01:03] VITALS: BP 122/88; O2SAT 97
--- NOTE | 2024-04-17 06:04 | RAD REPORT ---
EXAM DESCRIPTION: Chest Single View CLINICAL HISTORY: 43 years Female, CHEST PAIN TECHNIQUE: 1 view (Single frontal view of the chest) COMPARISON: CT chest 01/03/2024 FINDINGS: Patient's body habitus results in projectional magnification artifact. LINES AND TUBES: Dual lead left-sided pacemaker. CARDIOVASCULAR STRUCTURES: Upper limits of normal heart size. No pulmonary venous congestion. LUNGS: No confluent areas of acute consolidation. PLEURA: No layering pleural effusions. No pneumothorax. BONES: No acute osseous abnormality of the thorax. IMPRESSION: 1. No acute cardiopulmonary disease. Electronically signed by: Geovany Lee MD 04/17/2024 01:24 AM SUPERVISOR PUBLIC MESSAGE [employer]ICE N Due to temporary technical issues with the [employer] reporting system, reports are being dariusz d by the in-house radiologist without review as a courtesy to ensure prompt reporting the interpreting radiologist is fully responsible for the content of the report. Due to temporary technic al issues with the [employer] [facility] reporting system, reports are being signed by the in-house radiologist without review as a courtesy to ensure prompt reporting the interpreting radiologist is f ully responsible for the content of the report. Transcribed Date/Time: 04/17/2024 6:03 AM
--- NOTE | 2024-04-17 12:11 | EKG ---
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
== END 2024-04-17 00:56 | disposition home or self-care (01) ==
LOC: ER 23:02
DX: R07.9 Chest pain, unspecified (principal); I50.9 Heart failure, unspecified; Z95.0 Presence of cardiac pacemaker
CPT/HCPCS: 93005; 85025; 80048; 36415; 83735; 85610; 80076; 84484; 83880; 71045; J2405

== ENCOUNTER 2024-05-23 22:20 | Emergency (ER) | payer OTHER, SELFPAY ==
--- OUTSIDE RECORDS SUMMARY | 2024-05-23 22:23 | XMS REPORT | Continuity of Care Document ---
Author Name Unknown Address [address] [facility] [place] [address] Organization [employer] [facility] Address [address] [facility] [place] [address] Care Team Providers Care Real Estate Closing Coordinator Name Role Phone Pcp, Patient Does Not Have A Primary Care Physic mikala Campaigns, Generic Provider Attending Clinician Unavailable ALEXANDRE SNYDER Attending Clinician UnavailALEXANDRE Pichardo Attending Clinician UnavailAlexandre Pichardo MD Attending Clinician Silvino Bae MD Attending Clinician SILVINO BAE Attending Clinician Unavailable SILVINO BAE Attending Clinician Unavailable ADAM RHODES Admitting Clinician UnavailSILVINO Knight Admitting Clinician Unavailable Payers Payer Name Policy Type Policy Number Effective Date Expirati on Date Source Allergies, Adverse Reactions, Alerts Allergy Name Allergy Type Status Severity Reaction(s) Onset Date Inactive Date Treating Clinician Comments Source PROCHLOR PERAZINE DRUG INGREDI Active Anaphylaxis 10-17 00:00: 00 [facility] SHELLFIS H DERIVED DRUG INGREDI Active Anaphylaxis 10-17 00:00: 00 [facility] IODINE DRUG INGREDI Active Anaphylaxis 10-17 00:00: 00 [facility] Prochlor perazine Propensi ty to adverse reaction s Active Anaphylaxis 10-17 00:00: 00 [facility] Iodine Propensi ty to adverse reaction s Active Anaphylaxis 10-17 00:00: 00 [facility] Shellfis h Derived Propensi ty to adverse reaction s Active Anaphylaxis 10-17 00:00: 00 [facility] NO KNOWN ALLERGIE S Drug Class Active [facility] Social History Social Habit Start Date Stop Date Quantity Comments Source Sexual orientation U [facility] Sex assigned at 1980 00:00:00 1980 00:00:00 [facility] Smoking Status Start Date Stop Date Source Tobacco smoking consumption unknown [facility] Medications Ordered Medication Name Filled Medication Name Start Date Stop Date Current Medication? Ordering Clinician Indication Dosage Frequency Signature (SIG) Comments Components Source predniSONE 20 mg tablet 10-27 00:00: 00 11-01 04:59 :00 No [id number] 40mg Take 2 tablets by mouth in the morning for 4 days. [facility] furosemide (LASIX) injection 40 mg 10-26 23:15: 00 10-26 23:40 :00 No 40mg 40 mg, IV Push, ONCE, 1 dose, On Tue10/27/23 at 1815, [facility] ipratropium -albuteroL (DUONEB) 0.5 mg-3 mg(2.5 mg base)/3 mL nebulizer solution 3 mL 10-26 23:00: 00 10-26 22:21 :00 No 3mL 3 mL, Inhalation , ONCE, 1 dose, On Tue10/27/23 at 1800, Routine [facility] dexamethaso ne sod phos PF injection 10 mg 10-26 22:15: 00 10-26 22:21 :00 No 10mg 10 mg, Slow IV Push, ONCE, 1 dose, On Liyah 10/27/23 at 1715, 1 mL [facility] furosemide 20 mg tablet 10-26 00:00: 00 11-03 04:59 :00 No [id number] 40mg Take 2 tablets by mouth in the morning for 7 days. [facility] magnesium sulfate in water 2 gram/50 mL (4 %) infusion 2 g 10-17 21:15: 00 10-17 21:01 :00 No 2g 2 g, IV Piggyback, Administer over 15 Minutes, ONCE, 1 dose, On Tue10/18/23 at 1615, Routine [facility] methocarbam oL (ROBAXIN) injection 1,000 mg 10-17 19:45: 00 10-17 20:01 :00 No 1000mg 1,000 mg, Slow IV Push, Administer over 3-5 Minutes, ONCE, 1 dose, On Tue10/18/23 at 1445, Routine [facility] ketorolac (TORADOL) injection 15 mg 10-17 19:45: 00 10-17 19:58 :00 No 15mg 15 mg, Slow IV Push, ONCE, 1 dose, On Tue10/18/23 at 1445, Routine [facility] meclizine (TRAVEL-EAS E (MECLIZINE) ) tablet 25 mg 10-17 19:00: 00 10-17 19:58 :00 No 25mg 25 mg, Oral, ONCE, 1 dose, On Tue10/18/23 at 1400, [facility] meclizine 25 mg tablet 10-17 00:00: 00 Yes [id number] 25mg Take 1 tablet by mouth 3 (three) times daily as needed for Dizziness or Nausea. [facility] methocarbam oL 750 mg tablet 10-17 00:00: 00 Yes [id number] 750mg Take 1 tablet by mouth 4 (four) times daily. [facility] Vital Signs Vital Name Observation Time Observation Value Comments S [facility] Systolic blood pressure 2023-10-27 21:54:00 140 mm[Hg] [place] [facility] Diastolic blood pressure 2023-10-27 21:54:00 89 mm[Hg] [place] [facility] Heart rate 2023-10-27 21:54:00 69 /min [facility] Respiratory rate 2023-10-27 21:54:00 18 /min [facility] Oxygen saturation in Arterial blood by Pulse oximetry 2023-10-27 21:54:00 97 /min [facility] Body temperature 2023-10-27 18:20:00 36.94 Natty [facility] Body height 2023-10-27 18:17:00 157.5 cm [facility] Body weight 2023-10-27 18:17:00 122.471 kg [facility] BMI 2023-10-27 18:17:00 49.38 kg/m2 [facility] Heart rate 2023-10-18 21:45:00 78 /min [facility] Oxygen saturation in Arterial blood by Pulse oximetry 2023-10-18 21:45:00 99 /min [facility] Systolic blood pressure 2023-10-18 21:30:00 118 mm[Hg] [facility] Diastolic blood pressure 2023-10-18 21:30:00 75 mm[Hg] [facility] Respiratory rate 2023-10-18 21:30:00 18 /min [facility] Body height 2023-10-18 17:38:00 157.5 cm [facility] Body temperature 2023-10-18 17:37:00 36.28 Natty [facility] Body weight 2023-10-18 17:37:00 122.471 kg [facility] BMI 2023-10-18 17:37:00 49.38 kg/m2 [facility] Procedures Procedure Date / Time Performed Performing Clinicia n Source POCT GLUCOSE (AUTOMATED) 2023-10-27 21:53:00 Alexandre Snyder [facility] TROPONIN I 2023-10-27 20:08:00 Jignesh Castro [facility] COMP. METABOLIC PANEL ([id number]) 2023-10-27 20:08:00 Jignesh Castro [facility] CBC WITH DIFF 2023-10-27 20:08:00 [facility] 2023-10-27 20:08:00 [facility]W 2023-10-27 18:58:00 Sacaciu, Jignesh [facility] URINALYSIS 2023-10-18 20:50:00 Lila Cooper [facility] XR CHEST 2 VW 2023-10-18 19:55:35 Lila Cooper [facility] TROPONIN I 2023-10-18 19:47:00 Lila Cooper [facility] COMP. METABOLIC PANEL ([id number]) 2023-10-18 19:47:00 Lila Cooper [facility] CBC WITH DIFF 2023-10-18 19:47:00 Kenneth [facility] N-TERMINAL PRO-BNP 2023-10-18 19:47:00 Lila Cooper [facility] CT HEAD WO CONTRAST 2023-10-18 19:34:52 Nicki Cooper [facility] Encounters Start Date/Time End Date/Time Encounter Type Admission Type Attending [facility] Care Facility Care Department Encounter ID Source 2023-11-09 00:00:00 2023-11-09 11:47:00 Letter (Out) Campaigns, Generic Provider Campaigns, Generic Provider [facility] ([facility] [id number] [facility] 2023-10-27 13:21:00 2023-10-27 18:47:00 Emergency X ALEXANDRE SNYDER STEPHEN [facility] ERT [id number] [facility] 2023-10-27 13:21:00 2023-10-27 18:47:00 Emergency Alexandre Snyder [facility] [id number] [facility] 2023-10-18 12:39:00 2023-10-18 17:18:00 Emergency Silvino Bae [facility] [id number] [facility] 2023-10-18 12:39:00 2023-10-18 17:18:00 Emergency X FABIAN, SILVINO GOODMAN [facility] ERT [id number] [facility] Results Test Description Test Time Test Comments Results Result Co mments Source [facility] [id number] 19:25:37PROCEDURE: XR CHEST 1 VW 10/27/2023 1:50 PM CLINICAL INDICATION: sob COMPARISON: Radiograph of 10/18/2023 FINDINGS: The lungs are clear. There is no pleural effusion. ?No pneumothorax. The cardiac size is normal. Left chest wall cardiac pacer leads overlyingright atrium and right ventricle. No aggressive osseous lesion. [facility] [id number] 21:43:24EXAM: XR CHEST 2 VW COMPARISON: None HISTORY: Stated history of pseudotumor cerebri, presented withdizziness. FINDINGS: Left chest wall pacemaker is noted, with leads terminating in the rightatrium and right ventricle. Lungs: The lungs are well expanded and clear. No focal opacity. No pleuralabnormality. Heart/Mediastinum: The cardiomediastinal silhouette is normal toborderline. Bones and soft tissues: No acute osseous abnormality is visualized.[facility] [id number] 20:34:21* Test Item Value Reference Range Interpretation Comme [facility] NT-proBNP (test code = 85294-6) 88 pg/mL <=125 Lab Interpretation (test cod e = 99798-4) Normal [facility] [id number] 20:34:21* Test Item Value Reference Range Interpretation Comme nts TROPONIN I (test code = 2446496146) 0.009 ng/mL <=0.034 YAMIL (test code = [...] of biotin. Lab Interpretation (test code = 54573-5) Normal [facility]. METABOLIC PANEL ([id number])2023-10-18 20:23:56* Test Item Value Reference Range Interpretation Comme nts NA (test code = 4274437998) 142 mmol/L 135-145 K (test code = 6698821638) 4.4 mmol/L 3.5-5.0 Slight hemolysis CL (test code = 7561698786) 109 mmol/L 98-108 H CO2 TOTAL (test code = 4937659089) 22 mmol/L 23-31 L AGAP (test code = 4578836451) 11 2-16 BUN (test code = 7119879142) 15 mg/dL 7-23 Slight hemolysis GLUCOSE (test code = 0825430502) 147 mg/dL 70-110 H CREATININE (test code = 2160-0) 0.87 mg/dL 0.50-1.04 TOTAL BILI (test code = 4936747980) 0.5 mg/dL 0.1-1.1 CALCIUM (test code = 8565684434) 8.6 mg/dL 8.6-10.6 T PROTEIN (test code = 8126290361) 7.0 g/dL 6.3-8.2 ALBUMIN (test code = 8157776236) 4.0 g/dL 3.5-5.0 ALK PHOS (test code = 0237092975) 74 U/L 34-122 Slight hemolysis ALTv (test code = 1742-6) 36 U/L 5-35 H AST(SGOT) (test code = 4188799731) 36 U/L 13-40 Slight hemolysis eGFR (test code = 42124-7) 83.9 mL/min/1.73m2 CKD-EPI eGFR (2020). Assuming creatinine has been stable day-to-day for at least three months, the eGFR indicates Category G2 (60 - 89 mL/min/1.73 m2) Lab Interpretation (test code = 14871-6) Abnormal [facility] WITH [id number] 20:13:16* Test Item Value Reference Range Interpretation [...] g/dL 31.6-35.1 L RDW-SD (test code = 62659-0) 60.7 fL 39.0-49.9 H RDW-CV (test code = 788-0) 20.3 % 12.0-15.5 H PLT (test code = 777-3) 227 166-358 MPV (test code = 75309-2) 9.7 fL 9.5-12.9 NRBC/100 WBC (test code = 9706522503) 0.0 0.0-10.0 NRBC x10^3 (test code = 8606989496) See_Comment [Automated messa ge] The system which generated this result transmitted reference range: 10*3/?L. The reference range was not used to interpret this result as normal/abnormal. GRAN MAT (NEUT) % (test code = 770-8) 60.7 % IMM GRAN % (test code = 1116181667) 0.70 % LYMPH % (test code = 736-9) 30.5 % MONO % (test code = 5905-5) 5.3 % EOS % (test code = 713-8) 2.3 % BASO % (test code = 706-2) 0.5 % GRAN MAT x10^3(ANC) (test code = 5768371003) 3.40 10*3/uL 1.88-7.09 IMM GRAN x10^3 (test code = 6217436050) 0.04 10*3/uL 0.00-0.06 LYMPH x10^3 (test code = 731-0) 1.71 10*3/uL 1.32-3.29 MONO x10^3 (test code = 742-7) 0.30 10*3/uL 0.33-0.92 L EOS x10^3 (test code = 711-2) 0.13 10*3/uL 0.03-0.39 BASO x10^3 (test code = 704-7) 0.03 10*3/uL 0.01-0.07 Lab Interpretation (test code = 69024-6) [facility] [id number] 19:45:09CT HEAD WO CONTRAST HISTORY: Dizziness, persistent/recurrent, [...] clear. Thecalvarium and central skull base are unremarkable.[facility] Notes Date/Time Note Provider Source [...] possession of all belongings. Celina Mcdermott RN [facility] 2023-10-27 13:16:40 Makeda Bach is a 43 [...] to room for eval Brooklynn Baird RN [facility] 2023-10-18 17:11:43 Patient discharged with steady gait alert and oriented x 4 with discharge instructions no further questions asked Juan Jose Brandon RN [facility] 2023-10-18 14:26:[address] [facility] 2023-10-18 12:35:53 Makeda Bach is a 43 year old female presenting to ED with c/o headache. Patient reports has been ongoing x4 months. Patient states that she is from [place] and states that she was diagnosed with a "pseudotumor" which is causing pain down her neck and migraines. Patient to green chairs due to ED saturation [facility]
[2024-05-23] MEDS ORDERED: IBUPROFEN 400 MG TAB ONE (22:38)
[2024-05-23] MEDS ORDERED: HYDROCODONE/APAP 5/325 MG TAB ONE (22:38)
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
[2024-05-24 00:52] VITALS: TEMP 97.7; O2SAT 96
[2024-05-24 00:53] VITALS: BP 155/80
--- NOTE | 2024-05-24 05:53 | RAD REPORT ---
Clinical Indication: Bed:; PAIN Comparison: None FINDINGS: Right hand 3 views The 3 views of the right hand show normal alignment without acute fractures or dislocations. The digi t and thumb interphalangeal joints are unremarkable. The metacarpophalangeal joints are unremarkable. The carpometacarpal joint regions are unremarkable. No radiopaque foreign bodies or gas densities are noted in the soft tissues. There is no soft tissue swelling. The visualized wrist region is grossly unremarkable. If there is further concern, recommend follow-up radiographs, CT or MRI for complete assessment. IMPRESSION: 1. No acute radiographic abnormality of the right hand. Electronically signed by: Humberto Diaz MD 05/23/2024 11:40 PM CDT RP Due to temporary technical issues with the PACS/ProofPilot reporting system, reports are being dariusz d by the in-house radiologist without review as a courtesy to ensure prompt reporting the interpreting radiologist is fully responsible for the content of the report. Transcribed Date/Time: 05/24/2024 5:53 AM
== END 2024-05-23 23:57 | disposition home or self-care (01) ==
LOC: ER 22:20
DX: S60.221A Contusion of right hand, initial encounter (principal)

== ENCOUNTER 2024-06-24 12:12 | Emergency (ER) | payer SELFPAY ==
--- OUTSIDE RECORDS SUMMARY | 2024-06-24 12:16 | XMS REPORT | Continuity of Care Document ---
Author Name Unknown Address [address] [place] [address] [facility] Address 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 Pinion Name Role Phone Pcp, Patient Does Not Have A Primary Care Physic mikala ESTEVAN BILL Attending Clinician Unavailable Campaigns, Generic Provider Attending Clinician Unavailable ALEXANDRE [...] Date Inactive Date Treating Clinician Comments Source Iodine Propensi ty to adverse reaction s Active Anaphylaxis 10-17 00:00: 00 [facility] Shellfis h Derived Propensi ty to adverse reaction s Active Anaphylaxis 10-17 00:00: 00 [facility] PROCHLOR PERAZINE DRUG INGREDI Active Anaphylaxis 10-17 00:00: 00 [facility] SHELLFIS H DERIVED DRUG INGREDI Active Anaphylaxis 10-17 00:00: 00 [facility] IODINE DRUG INGREDI Active Anaphylaxis 10-17 00:00: 00 [facility] Prochlor perazine Propensi ty to adverse reaction s Active Anaphylaxis 10-17 00:00: 00 [facility] NO KNOWN ALLERGIE S Drug Class Active [facility] Social History Social Habit Start Date Stop Date Quantity Comments [facility] 1980 [facility] 1980 00:00:00 [facility] Smoking Status Start Date Stop Date Source Tobacco smoking consumption unknown [facility] Medications Ordered Medication Name Filled Medication Name Start Date Stop Date Current Medication? Ordering Clinician Indication Dosage Frequency Signature (SIG) Comments Components Source predniSONE 20 mg tablet 10-27 00:00: 00 11-01 04:59 :00 No [id number] 40mg Take 2 tablets by mouth in the morning for 4 days. [facility] furosemide (LASIX) injection 40 mg 10-26 23:15: 00 10-26 23:40 :00 No 40mg 40 mg, IV Push, ONCE, 1 dose, On Tue10/27/23 at 1815, VALENTINE [facility] ipratropium -albuteroL (DUONEB) 0.5 mg-3 mg(2.5 mg base)/3 mL nebulizer solution 3 mL 10-26 23:00: 00 10-26 22:21 :00 No 3mL 3 mL, Inhalation , ONCE, 1 dose, On Tue10/27/23 at 1800, Routine [facility] dexamethaso ne sod phos PF injection 10 mg 10-26 22:15: 00 10-26 22:21 :00 No 10mg 10 mg, Slow IV Push, ONCE, 1 dose, On Tue10/27/23 at 1715, 1 mL [facility] furosemide 20 mg tablet 10-26 00:00: 00 11-03 04:59 :00 No [id number] 40mg Take 2 tablets by mouth in the morning for 7 days. [facility] magnesium sulfate in water 2 gram/50 mL (4 %) infusion 2 g 10-17 21:15: 00 10-17 21:01 :00 No 2g 2 g, IV Piggyback, Administer over 15 Minutes, ONCE, 1 dose, On Tue10/18/23 at 1615, Routine [facility] methocarbam oL (ROBAXIN) injection 1,000 mg 10-17 19:45: 00 10-17 20:01 :00 No 1000mg 1,000 mg, Slow IV Push, Administer over 3-5 Minutes, ONCE, 1 dose, On Tue10/18/23 at 1445, Routine [facility] ketorolac (TORADOL) injection 15 mg 10-17 19:45: 00 10-17 19:58 :00 No 15mg 15 mg, Slow IV Push, ONCE, 1 dose, On Tue10/18/23 at 1445, Routine [facility] meclizine (TRAVEL-EAS E (MECLIZINE) ) tablet 25 mg 10-17 19:00: 00 10-17 19:58 :00 No 25mg 25 mg, Oral, ONCE, 1 dose, On Tue10/18/23 at 1400, VALENTINE [facility] meclizine 25 mg tablet 10-17 00:00: 00 Yes [id number] 25mg Take 1 tablet by mouth 3 (three) times daily as needed for Dizziness or Nausea. [facility] methocarbam oL 750 mg tablet 10-17 00:00: 00 Yes [id number] 750mg Take 1 tablet by mouth 4 (four) times daily. [facility] Vital Signs Vital Name Observation Time Observation Value Comments S yaniramonica Systolic blood pressure 2023-10-27 21:54:00 140 mm[Hg] [facility] acute hospital Diastolic blood pressure 2023-10-27 21:54:00 89 mm[Hg] General acute hospital Heart rate 2023-10-27 21:54:00 69 /min [facility] Respiratory rate 2023-10-27 21:54:00 18 /min [facility] Oxygen saturation in Arterial blood by Pulse oximetry 2023-10-27 21:54:00 97 /min [facility] acute hospital Body temperature 2023-10-27 18:20:00 36.94 Natty [facility] Body height 2023-10-27 18:17:00 157.5 cm [facility] Body weight 2023-10-27 18:17:00 122.471 kg [facility] BMI 2023-10-27 18:17:00 49.38 kg/m2 [facility] Heart rate 2023-10-18 21:45:00 78 /min [facility] Oxygen saturation in Arterial blood by Pulse oximetry 2023-10-18 21:45:00 99 /min [facility] acute hospital Systolic blood pressure 2023-10-18 21:30:00 118 mm[Hg] General acute hospital Diastolic blood pressure 2023-10-18 21:30:00 75 mm[Hg] General acute hospital Respiratory rate 2023-10-18 21:30:00 18 /min [facility] Body height 2023-10-18 17:38:00 157.5 cm [facility] Body temperature 2023-10-18 17:37:00 36.28 Natty [facility] Body weight 2023-10-18 17:37:00 122.471 kg [facility] BMI 2023-10-18 17:37:00 49.38 kg/m2 [facility] Procedures Procedure Date / Time Performed Performing Clinicia n Source POCT GLUCOSE (AUTOMATED) 2023-10-27 21:53:00 Alexandre Snyder [facility] TROPONIN I 2023-10-27 20:08:00 Jignesh Castro [facility] COMP. METABOLIC PANEL ([id number]) 2023-10-27 20:08:00 Jignesh Castro [facility] CBC WITH DIFF 2023-10-27 20:08:00 [facility] 2023-10-27 20:08:00 Jignesh Castro [facility] XR CHEST 1 VW 2023-10-27 18:58:00 Jignesh Castro [facility] URINALYSIS 2023-10-18 20:50:00 Lila Cooper [facility] XR CHEST 2 VW 2023-10-18 19:55:35 Kenneth Lial [facility] TROPONIN I 2023-10-18 19:47:00 Lila Cooper [facility] COMP. METABOLIC PANEL ([id number]) 2023-10-18 19:47:00 Lila Cooper [facility] CBC WITH DIFF 2023-10-18 19:47:00 Kenneth [facility] N-TERMINAL PRO-BNP 2023-10-18 19:47:00 Lila Cooper [facility] CT HEAD WO CONTRAST 2023-10-18 19:34:52 Nicki Cooper [facility] Encounters Start Date/Time End Date/Time Encounter Type Admission Type Attending [facility] Facility Care Department Encounter ID Source 2024-06-25 08:00:00 2024-06-25 08:00:00 Outpatient ESTEVAN BILL [id number] Ana Allison 2023-11-30 17:10:57 2023-11-30 17:10:57 Outpatient [facility] [id number] Alexandre Gusman 2023-11-09 00:00:00 2023-11-09 11:47:00 Letter (Out) Campaigns, Generic Provider Campaigns, Generic Provider [facility] [id number] [id number] [id number] [facility] 2023-10-27 13:21:00 2023-10-27 18:47:00 Emergency X ALEXANDRE SNYDER STEPHEN [facility] ERT [id number] [facility] 2023-10-27 13:21:00 2023-10-27 18:47:00 Emergency Alexandre Snyder [facility] [place] .840.114 [id number] [facility] 2023-10-18 12:39:00 2023-10-18 17:18:00 Emergency Silvino Bae [facility] [place] [id number] [facility] 2023-10-18 12:39:00 2023-10-18 17:18:00 Emergency X SILVINO BAE GREGORY [facility] ERT [id number] [facility] Results Test Description Test Time Test Comments Results Result Co mments Source [facility] [id number] 19:25:37PROCEDURE: XR CHEST 1 VW 10/27/2023 1:50 PM CLINICAL INDICATION: sob COMPARISON: Radiograph of 10/18/2023 FINDINGS: The lungs are clear. There is no pleural effusion. ?No pneumothorax. The cardiac size is normal. Left chest wall cardiac pacer leads overlyingright atrium and right ventricle. No aggressive osseous lesion. [facility] [id number] 21:43:24EXAM: XR CHEST 2 VW COMPARISON: None HISTORY: Stated history of pseudotumor cerebri, presented withdizziness. FINDINGS: Left chest wall pacemaker is noted, with leads terminating in the rightatrium and right ventricle. Lungs: The lungs are well expanded and clear. No focal opacity. No pleuralabnormality. Heart/Mediastinum: The cardiomediastinal silhouette is normal toborderline. Bones and soft tissues: No acute osseous abnormality is visualized.[facility] [id number] 20:34:21* Test Item Value Reference Range Interpretation Comme nts NT-proBNP (test code = 28027-2) 88 pg/mL <=125 Lab Interpretation (test cod e = 51580-6) Normal [facility] [id number] 20:34:21* Test Item Value Reference Range Interpretation Comme nts TROPONIN I (test code = 3403173765) 0.009 ng/mL <=0.034 YAMIL (test code = [...] of biotin. Lab Interpretation (test code = 93234-7) Normal [facility]. METABOLIC PANEL ([id number])2023-10-18 20:23:56* Test Item Value Reference Range Interpretation Comme nts NA (test code = 0443037928) 142 mmol/L 135-145 K (test code = 6055721488) 4.4 mmol/L 3.5-5.0 Slight hemolysis CL (test code = 0318261057) 109 mmol/L 98-108 H CO2 TOTAL (test code = 7690920047) 22 mmol/L 23-31 L AGAP (test code = 4942304826) 11 2-16 BUN (test code = 8507087644) 15 mg/dL 7-23 Slight hemolysis GLUCOSE (test code = 5541261611) 147 mg/dL 70-110 H CREATININE (test code = 2160-0) 0.87 mg/dL 0.50-1.04 TOTAL BILI (test code = 2171505706) 0.5 mg/dL 0.1-1.1 CALCIUM (test code = 6277484367) 8.6 mg/dL 8.6-10.6 T PROTEIN (test code = 7762949525) 7.0 g/dL 6.3-8.2 ALBUMIN (test code = 3918670930) 4.0 g/dL 3.5-5.0 ALK PHOS (test code = 0497524266) 74 U/L 34-122 Slight hemolysis ALTv (test code = 1742-6) 36 U/L 5-35 H AST(SGOT) (test code = 6028958265) 36 U/L 13-40 Slight hemolysis eGFR (test code = 58117-3) 83.9 mL/min/1.73m2 CKD-EPI eGFR (2020). Assuming creatinine has been stable day-to-day for at least three months, the eGFR indicates Category G2 (60 - 89 mL/min/1.73 m2) Lab Interpretation (test code = 69750-5) Abnormal [facility] WITH [id number] 20:13:16* Test Item Value Reference Range Interpretation [...] g/dL 31.6-35.1 L RDW-SD (test code = 32210-4) 60.7 fL 39.0-49.9 H RDW-CV (test code = 788-0) 20.3 % 12.0-15.5 H PLT (test code = 777-3) 227 166-358 MPV (test code = 66991-3) 9.7 fL 9.5-12.9 NRBC/100 WBC (test code = 7389072914) 0.0 0.0-10.0 NRBC x10^3 (test code = 5543655196) See_Comment [Automated messa ge] The system which generated this result transmitted reference range: 10*3/?L. The reference range was not used to interpret this result as normal/abnormal. GRAN MAT (NEUT) % (test code = 770-8) 60.7 % IMM GRAN % (test code = 4607654889) 0.70 % LYMPH % (test code = 736-9) 30.5 % MONO % (test code = 5905-5) 5.3 % EOS % (test code = 713-8) 2.3 % BASO % (test code = 706-2) 0.5 % GRAN MAT x10^3(ANC) (test code = 6376156189) 3.40 10*3/uL 1.88-7.09 IMM GRAN x10^3 (test code = 3646187463) 0.04 10*3/uL 0.00-0.06 LYMPH x10^3 (test code = 731-0) 1.71 10*3/uL 1.32-3.29 MONO x10^3 (test code = 742-7) 0.30 10*3/uL 0.33-0.92 L EOS x10^3 (test code = 711-2) 0.13 10*3/uL 0.03-0.39 BASO x10^3 (test code = 704-7) 0.03 10*3/uL 0.01-0.07 Lab Interpretation (test code = 68345-7) [facility] [id number] 19:45:09CT HEAD WO CONTRAST HISTORY: Dizziness, persistent/recurrent, [...] Thecalvarium and central skull base are unremarkable.[facility] Notes Date/Time Note Provider Source 2023-10-27 [...] possession of all belongings. Celina Mcdermott RN [facility] 2023-10-27 13:16:40 Makeda Bach is a [...] to room for eval Brooklynn Baird RN [facility] 2023-10-18 17:11:43 Patient discharged with steady gait alert and oriented x 4 with discharge instructions no further questions asked Juan Jose Brandon RN [facility] 2023-10-18 14:26:[address] [facility] 2023-10-18 12:35:53 Makeda Bach is a 43 year old female presenting to ED with c/o headache. Patient reports has been ongoing x4 months. Patient states that she is from [place] and states that she was diagnosed with a "pseudotumor" which is causing pain down her neck and migraines. Patient to green chairs due to ED saturation [facility]
[2024-06-24] MEDS ORDERED: DIAZEPAM 5 MG TABLET ONE (12:58)
[2024-06-24] MEDS ORDERED: HYDROCODONE/APAP 5/325 MG TAB ONE (12:58)
--- NOTE | 2024-06-24 14:00 | RAD REPORT ---
EXAM: XR LEFT HAND HISTORY: Pain. PAIN COMPARISON: None TECHNIQUE: Multiple projections of the left hand submitted. FINDINGS: No fracture or dislocation is seen.
--- NOTE | 2024-06-24 14:00 | RAD REPORT ---
EXAMINATION: XR RIGHT KNEE CLINICAL INDICATION: Female, 44 years old. PAIN TECHNIQUE: Multiple views of the right knee were obtained. COMPARISON: No prior exam. FINDINGS: Mild soft tissue swelling anterior to the patellar tendon and tibia. No joint effusion seen . No acute fracture or dislocation seen.
--- NOTE | 2024-06-24 14:12 | RAD REPORT ---
EXAMINATION: XR LEFT KNEE CLINICAL INDICATION: PAIN TECHNIQUE: Multiple projections of the left knee were obtained. COMPARISON: No prior exam. FINDINGS: No bone or joint abnormality seen.
--- NOTE | 2024-06-24 14:13 | RAD REPORT ---
EXAMINATION: LUMBAR SPINE MULTIPLE VIEWS CLINICAL INDICATION: Female, 44 years old. PAIN TECHNIQUE: Multiple views of the lumbar spine were obtained. COMPARISON: No prior exam. FINDINGS: For purposes of this dictation, it is assumed that there are 5 lumbar type vertebral bodies. ALIGNMENT: There is normal alignment of the lumbar spine. BONES: Vertebral bodies are normal in height. No aggressive osseous lesions. DISCS: Mild disc thinning with small plate osteophyte L5-S1. Small linear metallic structure projects to the left of the spine soft tissues, indeterminate. IMPRESSION: No acute lumbar spine abnormality.
--- NOTE | 2024-06-24 14:18 | EDPHYS ---
Physician Documentation [facility] Name: Ninoska Bach Age: 44 yrs Sex: Female : 1980 Arrival Date: 06/24/2024 Time: 12:12 Bed 5 Private MD: ED Physician Mehul Cowan HPI: 06/24 13:51 This 44 yrs old Black Female presents to ER via Wheelchair with complaints of Fall kb Injury. 13:51 Pt is a 44 year old female who presents for bilateral knee pain, low back pain and pain kb to left index finger after a fall this morning. States she got out of bed, her left leg "went out" and she fell to her knees. Denies hitting head, loc, any other trauma. . 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 - Infectious Disease History:: Denies. - Social history:: Smoking status: Patient denies any tobacco usage or history of. ROS: 13:50 Constitutional: As per HPI kb Exam: 13:50 Constitutional: This is a well developed, well nourished patient who is awake, alert, kb and in no acute distress. Head/Face: Normocephalic, atraumatic. ENT: Moist Mucous membranes Cardiovascular: Regular rate Respiratory: Respirations even and unlabored. No increased work of breathing. Talking in full sentences Skin: Warm, dry with normal turgor. Normal color. Neuro: Awake and alert, GCS 15, oriented to person, place, time, and situation. 13:50 Back: pain, that is moderate, of the lumbar area, 13:50 Musculoskeletal/extremity: Extremities: grossly normal except: noted in the right knee and left knee: pain, noted in the left index finger: decreased ROM, pain, ROM: limited active range of motion due to pain, Circulation is intact in all extremities. Sensation intact. Vital Signs: 12:51 BP 153 / 110; Pulse 80; Resp 16; Temp 97.8(O); Pulse Ox 97% on R/A; Weight 122.47 kg; ss Height 5 ft. 2 in. ; Pain 9/10; 13:00 BP 151 / 106; Pulse 81; Resp 17; Pulse Ox 97% ; me1 14:00 BP 169 / 105; Pulse 74; Resp 16; Pulse Ox 95% ; me1 14:30 BP 167 / 108; Pulse 87; Resp 15; Temp 98.4; Pulse Ox 97% ; me1 12:51 Body Mass Index 49.38 (122.47 kg, 157.48 cm) ss 12:51 Pain Scale: Adult ss MDM: 12:15 Medical Screening Exam initiated rn 14:17 Differential diagnosis: contusion, fracture, sprain, strain. Data reviewed: vital kb signs, nurses notes. Historians other than the Patient: Spouse/Significant Other: spouse. Counseling: I had a detailed discussion with the patient and/or guardian regarding the historical points, exam findings, and any diagnostic results supporting the discharge/admit diagnosis, radiology results, the need for outpatient follow up, a family practitioner, to return to the emergency department if symptoms worsen or persist or if there are any questions or concerns that arise at home. 06/24 12:50 Order name: Hand Left 3 View XRAY; Complete Time: 14:10 kb 06/24 12:50 Order name: Knee Left 3 View XRAY; Complete Time: 14:15 kb 06/24 12:50 Order name: Knee Right 3 View XRAY; Complete Time: 14:10 kb 06/24 12:50 Order name: Lumbar Spine (3 Views) XRAY; Complete Time: 14:15 kb Administered Medications: 13:01 Drug: Diazepam PO 5 mg PO once Route: PO; me1 14:05 Follow up: Response: No adverse reaction; Pain is decreased me1 13:02 Drug: HYDROcodone-acetaminophen PO 5 mg-325 mg 1 tabs PO once Route: PO; me1 14:05 Follow up: Response: No adverse reaction; Pain is decreased me1 14:50 Drug: Ketorolac IM 30 mg IM once Route: IM; Site: right deltoid; me1 14:50 Follow up: Response: No adverse reaction me1 Disposition: 15:20 Co-signature as Attending Physician, Mehul Cowan MD I reviewed the patient's care rn provided by the Advanced Practice Provider and agree with the diagnosis and treatment plan. Disposition Summary: 06/24/24 14:18 Discharge Ordered Notes: Location: Home kb Condition: Stable kb Diagnosis - Fall on same level, unspecified kb - Contusion of left knee kb - Contusion of right knee kb - Low back pain kb - Pain in left hand kb Followup: kb - With: Emergency Department - When: As needed - Reason: Worsening of condition Followup: kb - With: Private Physician - When: 2 - 3 days - Reason: Recheck today's complaints, Continuance of care, Re-evaluation by your physician Discharge Instructions: - Discharge Summary Sheet kb - Musculoskeletal Pain kb - Contusion, Rpli-[id number] kb Forms: - Medication Reconciliation Form kb - Antibiotic Education kb - Prescription Opioid Use kb - Patient Portal Instructions kb - Leadership Thank You Letter kb - Family Work Release me1 Prescriptions: - Diclofenac Sodium 75 mg Oral tablet, delayed release (enteric coated) - take 1 tablet ORAL route 2 times per day As needed; 30 tablet; Refills: 0, kb Product Selection Permitted - orphenadrine citrate 100 mg Oral Tablet Sustained Release - take 1 tablet ORAL route 2 times per day As needed; 20 tablet; Refills: 0, kb Product Selection Permitted Signatures: Dispatcher [employer] EDMS Cayla Heard, MACHINE OPERATOR CANE CUTTER-C MACHINE OPERATOR CANE CUTTER-Ckb Mehul Cowan MD MD rn Blanchard, Shelby, RN RN Zoya Alonso RN RN me1 Corrections: (The following items were deleted from the chart) 12:51 12:51 Knee Right 3 View+RAD.RAD.BRZ ordered. EDMS EDMS 12:51 12:51 Lumbar Spine 3 Views+RAD.RAD.BRZ ordered. EDMS EDMS
--- NOTE | 2024-06-24 14:18 | ER ---
Nurse's Notes [facility] Name: Ninoska Bach Age: 44 yrs Sex: Female : 1980 Arrival Date: 06/24/2024 Time: 12:12 Bed 5 Private MD: Diagnosis: Fall on same level, unspecified;Contusion of left knee;Contusion of right knee;Low back pain;Pain in left hand Presentation: 06/24 12:51 Chief complaint: Patient states: bilateral knee, back and L finger pain after falling ss out of bed this morning at 1000. Coronavirus screen: Client denies travel out of the [place] in the last 14 days. Ebola Screen: Patient denies exposure to infectious person. Patient denies travel to an Ebola-affected area in the 21 days before illness onset. Initial Sepsis Screen: Does the patient meet any 2 criteria? No. Patient's initial sepsis screen is negative. Does the patient have a suspected source of infection? No. Patient's initial sepsis screen is negative. Risk Assessment: Do you want to hurt yourself or someone else? Patient reports no desire to harm self or others. Onset of symptoms was June 24, 2024. 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 - Infectious Disease History:: Denies. - Social history:: Smoking status: Patient denies any tobacco usage or history of. Screenin:05 [facility] ED Fall Risk Assessment (Adult) History of falling in the last 3 months, me1 including since admission Yes- fall prone (multiple falls) (3 pts) Confusion or Disorientation No (0 pts) Intoxicated or Sedated No (0 pts) Impaired Gait Yes (1 pt) Mobility Assist Device Used No (0 pt) Altered Elimination No (0 pt) Score/Fall Risk Level 0 - 2 = Low Risk Maintained a safe environment, Provided non-skid footwear, Hourly rounding (assess needs \T\ fall precautionary measures) done. Abuse screen: Denies threats or abuse. Nutritional screening: No deficits noted. Tuberculosis screening: No symptoms or risk factors identified. Assessment: 13:05 General: Appears uncomfortable, obese, well groomed, well developed, Behavior is calm, me1 cooperative, appropriate for age, Reports bilateral knee, back and L finger pain after falling out of bed this morning at 1000. Pain: Complains of pain in back, left hand, right leg and left leg Pain does not radiate. Pain currently is 9 out of 10 on a pain scale. Quality of pain is described as throbbing, TIGHT Pain began suddenly, Is continuous. Neuro: Level of Consciousness is awake, alert, obeys commands, Oriented to person, place, time, situation, Appropriate for age. Cardiovascular: Patient's skin is warm and dry. Respiratory: Airway is patent Respiratory effort is even, unlabored, Respiratory pattern is regular, symmetrical. GI: No signs and/or symptoms were reported involving the gastrointestinal system. : No signs and/or symptoms were reported regarding the genitourinary system. EENT: No signs and/or symptoms were reported regarding the EENT system. Derm: Skin is intact, is healthy with good turgor, Skin is pink, warm \T\ dry. Musculoskeletal: Reports pain in back, left hand, right leg and left leg since falling out of bed this morning. Injury Description: fell out of bed. Vital Signs: 12:51 BP 153 / 110; Pulse 80; Resp 16; Temp 97.8(O); Pulse Ox 97% on R/A; Weight 122.47 kg; ss Height 5 ft. 2 in. ; Pain 9/10; 13:00 BP 151 / 106; Pulse 81; Resp 17; Pulse Ox 97% ; me1 14:00 BP 169 / 105; Pulse 74; Resp 16; Pulse Ox 95% ; me1 14:30 BP 167 / 108; Pulse 87; Resp 15; Temp 98.4; Pulse Ox 97% ; me1 12:51 Body Mass Index 49.38 (122.47 kg, 157.48 cm) 12:51 Pain Scale: Adult ED Course: 12:15 Patient arrived in ED. mr 12:15 Mehul Cowan MD is Attending Physician. rn 12:31 [facility]la Heard [facility]-C [facility] kb 12:31 Mehul Cowan MD is Attending Physician. kb 12:50 Zoya Alonso, CATRACHO is Primary Nurse. me1 12:53 Triage completed. ss 12:53 Arm band placed on right wrist. ss 13:05 Patient has correct armband on for positive identification. Bed in low position. Call me1 light in reach. Side rails up X2. Provided Education on: POC. Verbaliezd understanding.. Client placed on continuous cardiac and pulse oximetry monitoring. NIBP monitoring applied. Pulse ox on. NIBP on. 13:05 No provider procedures requiring assistance completed. Patient did not have IV access me1 during this emergency room visit. 13:49 Hand Left 3 View XRAY In Process Unspecified. EDMS 13:49 Knee Left 3 View XRAY In Process Unspecified. EDMS 13:49 Knee Right 3 View XRAY In Process Unspecified. EDMS 13:49 Lumbar Spine (3 Views) XRAY In Process Unspecified. EDMS Administered Medications: 13:01 Drug: Diazepam PO 5 mg PO once Route: PO; me1 14:05 Follow up: Response: No adverse reaction; Pain is decreased me1 13:02 Drug: HYDROcodone-acetaminophen PO 5 mg-325 mg 1 tabs PO once Route: PO; me1 14:05 Follow up: Response: No adverse reaction; Pain is decreased me1 14:50 Drug: Ketorolac IM 30 mg IM once Route: IM; Site: right deltoid; me1 14:50 Follow up: Response: No adverse reaction me1 Medication: 13:05 VIS not applicable for this client. me1 Outcome: 14:18 Discharge ordered by . kb 14:58 Discharged to home via wheelchair, with significant other, me1 14:58 Condition: stable 14:58 Discharge instructions given to patient, significant other, Instructed on discharge instructions, follow up and referral plans. medication usage, Demonstrated understanding of instructions, follow-up care, medications, Prescriptions given X 2, 14:58 Patient left the ED. me1 Signatures: Dispatcher [employer] EDMS Cayla Heard FNP-C PENSION CONSULTANT-CkJes Werner, Reg Reg Mehul Cowan MD MD rn Blanchard, Shelby, RN RN ss Zoya Alonso RN RN me1 Corrections: (The following items were deleted from the chart) 13:05 12:51 Chief complaint: Patient states: bilateral knee, back and L finger pain after me1 falling out of bed this morning at 1000 ss
[2024-06-24] MEDS ORDERED: KETOROLAC 30 MG/ML INJ ONE (14:46)
[2024-06-24 15:16] VITALS: BP 167/108; TEMP 98.4; O2SAT 97
== END 2024-06-24 14:58 | disposition home or self-care (01) ==
LOC: ER 12:12
DX: S80.02XA Contusion of left knee, initial encounter (principal); S80.01XA Contusion of right knee, initial encounter; M54.50 Low back pain, unspecified; M79.642 Pain in left hand; W18.30XA Fall on same level, unspecified, initial encounter; Z95.0 Presence of cardiac pacemaker
CPT/HCPCS: 72100; 96372; 99284

== ENCOUNTER 2024-06-29 09:27 | Emergency (ER) | payer SELFPAY ==
--- OUTSIDE RECORDS SUMMARY | 2024-06-29 09:31 | XMS REPORT | Continuity of Care Document ---
Author Name Unknown Address [address] [facility] [address] [place] [address] [facility] Address [address] [facility] [address] [place] [address] Care Team Providers Care Proof Load Mechanic Name Role Phone Pcp, Patient Does Not Have A Primary Care Physic mikala ESTEVAN BILL Attending Clinician Unavailable Campaigns, Generic Provider Attending Clinician Unavailable ALEXANDRE SNYDER Attending Clinician UnavailALEXANDRE Pichardo Attending Clinician UnavailAlexandre Pichardo MD Attending Clinician Silvino Bae MD Attending Clinician [phone] SILVINO BAE Attending Clinician Unavailable SILVINO BAE Attending Clinician Unavailable ADAM RHODES Admitting Clinician UnavailSILVINO Knight Admitting Clinician Unavailable Payers Payer Name Policy Type Policy Number Effective Date Expirati on Date Source Allergies, Adverse Reactions, Alerts Allergy Name Allergy Type Status Severity Reaction(s) Onset Date Inactive Date Treating Clinician Comments Source Prochlor perazine Propensi ty to adverse reaction s Active Anaphylaxis 10-17 00:00: 00 [facility] Iodine Propensi ty to adverse reaction s Active Anaphylaxis 10-17 00:00: 00 [facility] Shellfis h Derived Propensi ty to adverse reaction s Active Anaphylaxis 10-17 00:00: 00 [facility] PROCHLOR PERAZINE DRUG INGREDI Active Anaphylaxis 10-17 00:00: 00 [facility] SHELLFIS H DERIVED DRUG INGREDI Active Anaphylaxis 10-17 00:00: 00 [facility] IODINE DRUG INGREDI Active Anaphylaxis 10-17 00:00: 00 [facility] NO KNOWN ALLERGIE S Drug Class Active [facility] Social History Social Habit Start Date Stop Date Quantity Comments Source [facility] 1980 [facility]00 1980 00:00:00 [facility] Smoking Status Start Date Stop Date Source Tobacco smoking consumption unknown [facility] Medications Ordered Medication Name Filled Medication Name Start Date Stop Date Current Medication? Ordering Clinician Indication Dosage Frequency Signature (SIG) Comments Components Source predniSONE 20 mg tablet 10-27 00:00: 00 11-01 04:59 :00 No [id number] 40mg Take 2 tablets by mouth in the morning for 4 days. [facility] furosemide (LASIX) injection 40 mg 10-26 23:15: 00 10-26 23:40 :00 No 40mg 40 mg, IV Push, ONCE, 1 dose, On Liyah 10/27/23 at 1815, VALENTINE [facility] ipratropium -albuteroL (DUONEB) 0.5 mg-3 mg(2.5 mg base)/3 mL nebulizer solution 3 mL 10-26 23:00: 00 10-26 22:21 :00 No 3mL 3 mL, Inhalation , ONCE, 1 dose, On Tue10/27/23 at 1800, Routine [facility] dexamethaso ne sod phos PF injection 10 mg 10-26 22:15: 00 10-26 22:21 :00 No 10mg 10 mg, Slow IV Push, ONCE, 1 dose, On Liyah 10/27/23 at 1715, 1 mL [facility] furosemide 20 mg tablet 10-26 00:00: 00 11-03 04:59 :00 No [id number] 40mg Take 2 tablets by mouth in the morning for 7 days. [facility] magnesium sulfate in water 2 gram/50 mL (4 %) infusion 2 g 10-17 21:15: 00 10-17 21:01 :00 No 2g 2 g, IV Piggyback, Administer over 15 Minutes, ONCE, 1 dose, On Tue10/18/23 at 1615, Routine [facility] methocarbam oL (ROBAXIN) injection 1,000 mg 10-17 19:45: 00 10-17 20:01 :00 No 1000mg 1,000 mg, Slow IV Push, Administer over 3-5 Minutes, ONCE, 1 dose, On Tue10/18/23 at 1445, Routine [facility] ketorolac (TORADOL) injection 15 mg 10-17 19:45: 00 10-17 19:58 :00 No 15mg 15 mg, Slow IV Push, ONCE, 1 dose, On Tue10/18/23 at 1445, Routine [facility] meclizine (TRAVEL-EAS E (MECLIZINE) ) tablet 25 mg 10-17 19:00: 00 10-17 19:58 :00 No 25mg 25 mg, Oral, ONCE, 1 dose, On Tue10/18/23 at 1400, VALENTINE [facility] meclizine 25 mg tablet 10-17 00:00: 00 Yes [id number] 25mg Take 1 tablet by mouth 3 (three) times daily as needed for Dizziness or Nausea. [facility] methocarbam oL 750 mg tablet 10-17 00:00: 00 Yes [id number] 750mg Take 1 tablet by mouth 4 (four) times daily. [facility] Vital Signs Vital Name Observation Time Observation Value Comments S daniela Systolic blood pressure 2023-10-27 21:54:00 140 mm[Hg] [facility] Diastolic blood pressure 2023-10-27 21:54:00 89 mm[Hg] [facility] Heart rate 2023-10-27 21:54:00 69 /min [facility] Respiratory rate 2023-10-27 21:54:00 18 /min [facility] Oxygen saturation in Arterial blood by Pulse oximetry 2023-10-27 21:54:00 97 /min [facility] Body temperature 2023-10-27 18:20:00 36.94 Natty [facility] Body height 2023-10-27 18:17:00 157.5 cm [facility] Body weight 2023-10-27 18:17:00 122.471 kg [facility] BMI 2023-10-27 18:17:00 49.38 kg/m2 [facility] Heart rate 2023-10-18 21:45:00 78 /min [facility] Oxygen saturation in Arterial blood by Pulse oximetry 2023-10-18 21:45:00 99 /min [facility] Systolic blood pressure 2023-10-18 21:30:00 118 mm[Hg] [facility] Diastolic blood pressure 2023-10-18 21:30:00 75 mm[Hg] [facility] Respiratory rate 2023-10-18 21:30:00 18 /min [facility] Body height 2023-10-18 17:38:00 157.5 cm [facility] Body temperature 2023-10-18 17:37:00 36.28 Natty [facility] Body weight 2023-10-18 17:37:00 122.471 kg [facility] BMI 2023-10-18 17:37:00 49.38 kg/m2 [facility] Procedures Procedure Date / Time Performed Performing Clinicia n Source POCT GLUCOSE (AUTOMATED) 2023-10-27 21:53:00 Alexandre Snyder [facility] TROPONIN I 2023-10-27 20:08:00 Jignesh Castro [facility] COMP. METABOLIC PANEL ([id number]) 2023-10-27 20:08:00 Jignesh Castro [facility] CBC WITH DIFF 2023-10-27 20:08:00 Jignesh Castro [facility] N-TERMINAL PRO-BNP 2023-10-27 20:08:00 [facility]W 2023-10-27 18:58:00 Jignesh Castro [facility] URINALYSIS 2023-10-18 20:50:00 [facility]ST 2 VW 2023-10-18 19:55:35 Lila Cooper [facility] TROPONIN I 2023-10-18 19:47:00 [facility] COMP. METABOLIC PANEL ([id number]) 2023-10-18 19:47:00 Lila Cooper [facility] CBC WITH DIFF 2023-10-18 19:47:00 Kenneth Lila [facility] N-TERMINAL PRO-BNP 2023-10-18 19:47:00 Lila Cooper [facility] CT HEAD WO CONTRAST 2023-10-18 19:34:52 Nicki Cooper [facility] Encounters Start Date/Time End Date/Time Encounter Type Admission Type Attending [facility] Care Department Encounter ID Source 2024-07-16 14:30:00 2024-07-16 14:30:00 Outpatient ESTEVAN BILL [id number] [facility] 2024-06-25 08:00:00 2024-06-25 08:00:00 Outpatient ESTEVAN BILL [id number] [facility] 2023-11-30 17:10:57 2023-11-30 17:10:[address] [facility] [id number] Alexandre Gusman 2023-11-09 00:00:00 2023-11-09 11:47:00 Letter (Out) Campaigns, Generic Provider Campaigns, Generic Provider [facility] ([facility]) [id number] [id number] [facility] 2023-10-27 13:21:00 2023-10-27 18:47:00 Emergency X ALEXANDRE SNYDER STEPHEN [facility] E[facility] [id number] [facility] 2023-10-27 13:21:00 2023-10-27 18:47:00 Emergency Morrical, Alexandre Pabon [facility] [id number] [facility] 2023-10-18 12:39:00 2023-10-18 17:18:00 Emergency CatalinoSilvino [facility] [id number] [facility] 2023-10-18 12:39:00 2023-10-18 17:18:00 Emergency X SILVINO BAE GREGORY [facility] ERT [id number] [facility] Results Test Description Test Time Test Comments Results Result Co mments Source [facility] [id number] 19:25:37PROCEDURE: XR CHEST 1 VW 10/27/2023 1:50 PM CLINICAL INDICATION: sob COMPARISON: Radiograph of 10/18/2023 FINDINGS: The lungs are clear. There is no pleural effusion. ?No pneumothorax. The cardiac size is normal. Left chest wall cardiac pacer leads overlyingright atrium and right ventricle. No aggressive osseous lesion. [facility] [id number] 21:43:24EXAM: XR CHEST 2 VW COMPARISON: None HISTORY: Stated history of pseudotumor cerebri, presented withdizziness. FINDINGS: Left chest wall pacemaker is noted, with leads terminating in the rightatrium and right ventricle. Lungs: The lungs are well expanded and clear. No focal opacity. No pleuralabnormality. Heart/Mediastinum: The cardiomediastinal silhouette is normal toborderline. Bones and soft tissues: No acute osseous abnormality is visualized.[facility]MINAL [id number] 20:34:21* Test Item Value Reference Range Interpretation Comme nts NT-proBNP (test code = 86062-7) 88 pg/mL <=125 Lab Interpretation (test cod e = 16895-4) Normal [facility] [id number] 20:34:21* Test Item Value Reference Range Interpretation Comme nts TROPONIN I (test code = 8350820919) 0.009 ng/mL <=0.034 YAMIL (test code = [...] of biotin. Lab Interpretation (test code = 39862-4) Normal [facility]. METABOLIC PANEL ([id number])2023-10-18 20:23:56* Test Item Value Reference Range Interpretation Comme nts NA (test code = 7148110732) 142 mmol/L 135-145 K (test code = 8209965442) 4.4 mmol/L 3.5-5.0 Slight hemolysis CL (test code = 4262236714) 109 mmol/L 98-108 H CO2 TOTAL (test code = 7632398968) 22 mmol/L 23-31 L AGAP (test code = 3657399914) 11 2-16 BUN (test code = 1165125665) 15 mg/dL 7-23 Slight hemolysis GLUCOSE (test code = 2705037279) 147 mg/dL 70-110 H CREATININE (test code = 2160-0) 0.87 mg/dL 0.50-1.04 TOTAL BILI (test code = 3262638418) 0.5 mg/dL 0.1-1.1 CALCIUM (test code = 2427114018) 8.6 mg/dL 8.6-10.6 T PROTEIN (test code = 4505328280) 7.0 g/dL 6.3-8.2 ALBUMIN (test code = 7263297390) 4.0 g/dL 3.5-5.0 ALK PHOS (test code = 0013035950) 74 U/L 34-122 Slight hemolysis ALTv (test code = 1742-6) 36 U/L 5-35 H AST(SGOT) (test code = 6303580629) 36 U/L 13-40 Slight hemolysis eGFR (test code = 20379-0) 83.9 mL/min/1.73m2 CKD-EPI eGFR (2020). Assuming creatinine has been stable day-to-day for at least three months, the eGFR indicates Category G2 (60 - 89 mL/min/1.73 m2) Lab Interpretation (test code = 65397-7) Abnormal [facility] WITH [id number] 20:13:16* Test Item Value Reference Range Interpretation [...] g/dL 31.6-35.1 L RDW-SD (test code = 09008-7) 60.7 fL 39.0-49.9 H RDW-CV (test code = 788-0) 20.3 % 12.0-15.5 H PLT (test code = 777-3) 227 166-358 MPV (test code = 83441-2) 9.7 fL 9.5-12.9 NRBC/100 WBC (test code = 3219214859) 0.0 0.0-10.0 NRBC x10^3 (test code = 4214387869) See_Comment [Automated OSIXa ge] The system which generated this result transmitted reference range: 10*3/?L. The reference range was not used to interpret this result as normal/abnormal. GRAN MAT (NEUT) % (test code = 770-8) 60.7 % IMM GRAN % (test code = 0695124613) 0.70 % LYMPH % (test code = 736-9) 30.5 % MONO % (test code = 5905-5) 5.3 % EOS % (test code = 713-8) 2.3 % BASO % (test code = 706-2) 0.5 % GRAN MAT x10^3(ANC) (test code = 1776980846) 3.40 10*3/uL 1.88-7.09 IMM GRAN x10^3 (test code = 5169905375) 0.04 10*3/uL 0.00-0.06 LYMPH x10^3 (test code = 731-0) 1.71 10*3/uL 1.32-3.29 MONO x10^3 (test code = 742-7) 0.30 10*3/uL 0.33-0.92 L EOS x10^3 (test code = 711-2) 0.13 10*3/uL 0.03-0.39 BASO x10^3 (test code = 704-7) 0.03 10*3/uL 0.01-0.07 Lab Interpretation (test code = 66899-7) [facility] [id number] 19:45:09CT HEAD WO CONTRAST HISTORY: Dizziness, persistent/recurrent, [...] clear. Thecalvarium and central skull base are unremarkable.[facility] Notes Date/Time Note Provider Source 2023-10-27 [...] possession of all belongings. Celina Mcdermott RN [facility] 2023-10-27 13:16:40 Makeda Bach is a [...] to room for eval Brooklynn Baird RN [facility] 2023-10-18 17:11:43 Patient discharged with steady gait alert and oriented x 4 with discharge instructions no further questions asked Juan Jose Brandon RN [facility] 2023-10-18 14:26:[address] [facility] 2023-10-18 12:35:53 Makeda Bach is a 43 year old female presenting to ED with c/o headache. Patient reports has been ongoing x4 months. Patient states that she is from [place] and states that she was diagnosed with a "pseudotumor" which is causing pain down her neck and migraines. Patient to green chairs due to ED saturation [facility]
--- NOTE | 2024-06-29 11:16 | RAD REPORT ---
EXAM: CT Head Brain Wo Cont HISTORY: HEADACHE COMPARISON: 01/14/2024 through 12/29/2023 TECHNIQUE: Multiple contiguous axial images were obtained for a CT of the brain without contrast. Sag ittal and coronal reformats were performed. One or more of the following dose reduction techniques were used: Automated exposure control, adjus tment of the mA and kV according to patient size, and iterative reconstruction. Unless otherwise specified, incidental findings do not require dedicated imaging follow-up. FINDINGS: No evidence of hydrocephalus, intracranial hemorrhage, or extra-axial fluid collection. The brain is normal in morphology. The calvarium is intact. The visualized paranasal sinuses and mastoid air cells are essentially clear . IMPRESSION: No evidence of acute intracranial abnormality.
[2024-06-29] MEDS ORDERED: ONDANSETRON 4 MG/2 ML VIAL ONE (12:23)
[2024-06-29] MEDS ORDERED: FENTANYL CITR 100 MCG/2 ML ONE (12:24)
[2024-06-29 12:37] LABS: Absolute Basophils 0.1 K/uL (0-0.5); Absolute Eosinophils 0.1 K/uL (0-0.5); Absolute Lymphocytes (CBC) 1.4 K/uL (0.7-4.9); Absolute Monocytes 0.4 K/uL (0.1-1.3); Absolute Neutrophil 6.2 K/uL (1.8-8.0); Eosinophils % 1.5 % (0-4.4); Hematocrit 43.7 % (36.0-45.0); Hemoglobin 14.6 g/dL (12.0-15.0); MCH 27.1 pg (27.0-35.0); MCHC 33.3 g/dL (32.0-36.0); MCV 81.4 fL (80-100); MPV 7.6 fL (7.6-11.3); Neutrophils % 75.5 % (41.7-73.7); Nucleated Red Blood Cells % 0.1 % (0-0); Platelets 298 thou/uL (152-406); RBC Red Blood Cell Count 5.37 M/uL (3.86-4.86); Red Cell Distribution Width 17.6 % (12.1-15.2)
[2024-06-29 12:50] LABS: Anion Gap 10.1 mEq/L (5.0-15.0); Potassium 4.1 mEq/L (3.5-5.1)
[2024-06-29] MEDS ORDERED: MORPHINE 4 MG/ML SYR ONE (14:00)
--- NOTE | 2024-06-29 14:15 | ER ---
Nurse's Notes [facility] Name: Ninoska Bach Age: 44 yrs Sex: Female : 1980 Arrival Date: 06/29/2024 Time: 09:27 Bed 12 Private MD: Diagnosis: Headache;Episodic tension-type headache Presentation: 06/29 10:03 Chief complaint: Headache, photosensitivity and nausea x 3 days. Hx of migraines, feels hb similar to previous episodes. Coronavirus screen: At this time, the client does not indicate any symptoms associated with coronavirus-19. Ebola Screen: No symptoms or risks identified at this time. Initial Sepsis Screen: Does the patient meet any 2 criteria? No. Patient's initial sepsis screen is negative. Does the patient have a suspected source of infection? No. Patient's initial sepsis screen is negative. Risk Assessment: Do you want to hurt yourself or someone else? Patient reports no desire to harm self or others. Onset of symptoms was June 27, 2024. 10:03 Method Of Arrival: Ambulatory hb 10:03 Acuity: MONSERRAT 3 hb Triage Assessment: 13:00 Headache History: The patient has had previous headaches and this one is similar to iw previous episodes. General: Appears in no apparent distress. Behavior is cooperative. Pain: Complains of pain in head and back of head Pain currently is 10 out of 10 on a pain scale. Pain began 2-3 days ago. Also complains of photophobia. Neuro: Level of Consciousness is awake, alert, obeys commands. Historical: - Allergies: 10:04 Compazine; hb 10:04 Iodine; hb 10:04 SHELLFISH; hb - PMHx: 10:04 Bronchitis; Congestive heart failure; Degenerative disc disease; diabetes mellitus; hb Migraine; pseudotumor; Seizure; Sleep Apnea; 10:05 Hypertension; COPD; hb - PSHx: 10:04 Cholecystectomy; kidney stent; pacemaker; Total abdominal hysterectomy; hb - Immunization history:: Adult Immunizations up to date. - Infectious Disease History:: Denies. - Social history:: Smoking status: Patient denies any tobacco usage or history of. Screenin:30 [facility] ED Fall Risk Assessment (Adult) History of falling in the last 3 months, iw including since admission No falls in past 3 months (0 pts) Confusion or Disorientation No (0 pts) Intoxicated or Sedated No (0 pts) Impaired Gait No (0 pts) Mobility Assist Device Used No (0 pt) Altered Elimination No (0 pt) Score/Fall Risk Level 0 - 2 = Low Risk Oriented to surroundings, Maintained a safe environment. Abuse screen: Denies threats or abuse. Denies injuries from another. Nutritional screening: No deficits noted. Tuberculosis screening: No symptoms or risk factors identified. Assessment: 13:23 Reassessment: pt reports her headache is still 10/10 after pain meds. iw 13:56 Reassessment: Patient appears in no apparent distress at this time. pt updated on POC, iw Dr. Pena notified on pt pain, will refer pt to neurology to follow up and sent home with prescriptions. Vital Signs: 10:03 BP 148 / 98; Pulse 88; Resp 16; Temp 98.2(O); Pulse Ox 96% on R/A; Weight 117.93 kg; hb Height 5 ft. 2 in. ; Pain 10/10; 12:53 BP 158 / 100; Pulse 61; Resp 16; Pulse Ox 97% on R/A; Pain 10/10; iw 13:57 BP 160 / 98; Pulse 64; Resp 16; Pulse Ox 98% on R/A; iw 10:03 Body Mass Index 47.55 (117.93 kg, 157.48 cm) hb 10:03 Pain Scale: Adult hb 12:53 Pain Scale: Adult iw Edna Coma Score: 14:11 Eye Response: spontaneous(4). Motor Response: obeys commands(6). Verbal Response: bo1 oriented(5). Total: 15. ED Course: 09:32 Patient arrived in ED. gl 10:04 Triage completed. hb 10:05 Arm band placed on. hb 10:13 Yoav Pena MD is Attending Physician. bo1 10:43 CT Head Brain wo Cont In Process Unspecified. EDMS 12:14 Aida Prieto, CATRACHO is Primary Nurse. iw 12:25 Initial lab(s) drawn, by me, sent to lab. Inserted saline lock: 20 gauge in right iw antecubital area, using aseptic technique. Blood collected. Flushed with 10 mL NS. 14:13 Jesus Bianchi MD is Referral Physician. bo1 14:33 No provider procedures requiring assistance completed. IV discontinued, intact, iw bleeding controlled, No redness/swelling at site. Pressure dressing applied. Administered Medications: 12:39 Drug: Ondansetron IVP 4 mg IVP once; over 2 minutes Route: IVP; Site: right antecubital;iw 14:33 Follow up: Response: No adverse reaction iw 12:39 Drug: fentaNYL (PF) IVP 100 mcg IVP once Route: IVP; Site: right antecubital; iw 12:53 Drug: fentaNYL (PF) IVP 100 mcg IVP once Route: IVP; Site: right antecubital; iw 13:30 Follow up: Response: No adverse reaction; Pain is unchanged, physician notified iw 14:08 Drug: morphine IVP or IV 4 mg IVP once over 4 mins Route: IVP; Infused Over: 4 mins; iw Site: right antecubital; 14:33 Follow up: Response: No adverse reaction; Pain is decreased iw 14:20 Drug: Ketorolac IVP 30 mg IVP once Route: IVP; Site: right antecubital; iw 14:33 Follow up: Response: No adverse reaction iw Outcome: 14:15 Discharge ordered by MD. mathur 14:32 Discharged to home ambulatory, with family, iw 14:32 Condition: good 14:32 Discharge instructions given to patient, family, Instructed on discharge instructions, follow up and referral plans. medication usage, Demonstrated understanding of instructions, follow-up care, medications, Prescriptions given X 3, 14:33 Patient left the ED. iw Signatures: Dispatcher [employer] EDAida Mckeon RN RN iw Gracie Berg RN RN Oei, MD NORMA Cason bo1 Rach Rdz, Reg Reg gl Corrections: (The following items were deleted from the chart) 10:05 10:04 PMHx: COPD (Sleep Apnea); hb hb 10:05 10:04 PMHx: Hypertension (Total abdominal hysterectomy); hb hb 10:06 10:03 BP 169 / 100; Pulse 88bpm; Resp 16bpm; Pulse Ox 96% RA; Temp 98.2F Oral; 117.93 hb kg; Height 5 ft. 2 in.; BMI: 47.5; Pain 10, Adult; hb
--- NOTE | 2024-06-29 14:15 | EDPHYS ---
Physician Documentation [facility] Name: Ninoska Bach Age: 44 yrs Sex: Female : 1980 Arrival Date: 06/29/2024 Time: 09:27 Bed 12 Private MD: ED Physician Yoav Pena HPI: 06/29 10:22 This 44 yrs old Black Female presents to ER via Ambulatory with complaints of Headache. bo1 10:22 The patient complains of pain to the left occipital area and right occipital area. The bo1 patient describes the headache as constant. Onset: The symptoms/episode began/occurred gradually, 3 day(s) ago. Associated signs and symptoms: Pertinent positives: Vision changes pancho at night. Severity of symptoms: At its worst the pain was severe, 3 day(s) ago, Described as a "migraine TORO" not better with Qulipta. Headache History: Other Hx of brain tumor w/o surgery dx in [facility]. Last CT was 1 year ago. Historical: - Allergies: 10:04 Compazine; hb 10:04 Iodine; hb 10:04 SHELLFISH; hb - PMHx: 10:04 Bronchitis; Congestive heart failure; Degenerative disc disease; diabetes mellitus; hb Migraine; pseudotumor; Seizure; Sleep Apnea; 10:05 Hypertension; COPD; hb - PSHx: 10:04 Cholecystectomy; kidney stent; pacemaker; Total abdominal hysterectomy; hb - Immunization history:: Adult Immunizations up to date. - Infectious Disease History:: Denies. - Social history:: Smoking status: Patient denies any tobacco usage or history of. ROS: 14:06 Constitutional: Negative for fever, chills, and weight loss bo1 14:06 Eyes: Positive for photophobia, 14:06 Neck: Negative for pain with movement, pain at rest, stiffness, 14:06 Cardiovascular: Negative for chest pain, 14:06 Respiratory: Negative for cough, shortness of breath, 14:06 Abdomen/GI: Negative for abdominal pain, nausea and vomiting, 14:06 MS/extremity: Negative for pain, swelling, 14:06 Skin: Negative for rash, 14:06 Neuro: Positive for headache, Negative for altered mental status, Per family, pt is at her baseline, 14:06 All other systems are negative, Exam: 14:07 Constitutional: This is a well developed, well nourished patient who is awake, alert, bo1 and in acute distress. 14:07 Constitutional: The patient appears in no acute distress, alert, awake, comfortable, non-toxic, Pt was initially sitting in the [place] in a wheelchair. She seems non-toxic and sleepy. 14:07 Head/face: Exam is negative for acute changes, 14:07 Eyes: Exam is negative for acute changes, 14:07 Neck: External neck: is normal, no acute changes, 14:07 Chest/axilla: Inspection: normal, 14:07 Cardiovascular: Rate: normal, Rhythm: regular, Pulses: no pulse deficits are appreciated, 14:07 Respiratory: the patient does not display signs of respiratory distress, Respirations: normal, no acute changes, 14:07 Abdomen/GI: Inspection: abdomen appears normal, 14:07 Skin: no rash present. 14:07 Neuro: Exam negative for acute changes, focal neuro deficits, motor deficits, cerebellar deficits, cranial nerve deficits, memory loss, weakness, 14:07 Psych: exam not indicated, Vital Signs: 10:03 BP 148 / 98; Pulse 88; Resp 16; Temp 98.2(O); Pulse Ox 96% on R/A; Weight 117.93 kg; hb Height 5 ft. 2 in. ; Pain 10/10; 12:53 BP 158 / 100; Pulse 61; Resp 16; Pulse Ox 97% on R/A; Pain 10/10; iw 13:57 BP 160 / 98; Pulse 64; Resp 16; Pulse Ox 98% on R/A; iw 10:03 Body Mass Index 47.55 (117.93 kg, 157.48 cm) hb 10:03 Pain Scale: Adult hb 12:53 Pain Scale: Adult iw Manito Coma Score: 14:11 Eye Response: spontaneous(4). Motor Response: obeys commands(6). Verbal Response: bo1 oriented(5). Total: 15. MDM: 10:13 Medical Screening Exam initiated bo1 14:11 Differential diagnosis: migraine, neoplasm, tension headache. Data reviewed: vital bo1 signs, lab test result(s), radiologic studies, CT scan. Medication response: Fentanyl IV x 1. Response to treatment: There is no appreciated change of the patient's symptoms at this time. ED course: No acute indication needed for hospitalization or obs. 06/29 10:21 Order name: Basic Metabolic Panel; Complete Time: 13:47 bo1 06/29 10:21 Order name: CBC with Diff; Complete Time: 13:47 bo1 06/29 10:22 Order name: CT Head Brain wo Cont; Complete Time: 11:22 bo1 06/29 10:21 Order name: IV Saline Lock; Complete Time: 12:24 bo1 Administered Medications: 12:39 Drug: Ondansetron IVP 4 mg IVP once; over 2 minutes Route: IVP; Site: right antecubital;iw 14:33 Follow up: Response: No adverse reaction iw 12:39 Drug: fentaNYL (PF) IVP 100 mcg IVP once Route: IVP; Site: right antecubital; iw 12:53 Drug: fentaNYL (PF) IVP 100 mcg IVP once Route: IVP; Site: right antecubital; iw 13:30 Follow up: Response: No adverse reaction; Pain is unchanged, physician notified iw 14:08 Drug: morphine IVP or IV 4 mg IVP once over 4 mins Route: IVP; Infused Over: 4 mins; iw Site: right antecubital; 14:33 Follow up: Response: No adverse reaction; Pain is decreased iw 14:20 Drug: Ketorolac IVP 30 mg IVP once Route: IVP; Site: right antecubital; iw 14:33 Follow up: Response: No adverse reaction iw Disposition Summary: 06/29/24 14:15 Discharge Ordered Notes: Location: Home bo1 Problem: new bo1 Symptoms: are unchanged bo1 Condition: Stable bo1 Diagnosis - Headache bo1 - Episodic tension-type headache bo1 Followup: bo1 - With: Private Physician - When: Upon discharge from the Emergency Department - Reason: Recheck today's complaints, Continuance of care Followup: bo1 - With: Jesus Bianchi MD - When: Upon discharge from the Emergency Department - Reason: Recheck today's complaints, Continuance of care Discharge Instructions: - Discharge Summary Sheet bo1 - Migraine Headache, [id number] bo1 - General Headache Without Cause, [id number] bo1 Forms: - Medication Reconciliation Form bo1 - Antibiotic Education bo1 - Prescription Opioid Use bo1 - Patient Portal Instructions bo1 - Leadership Thank You Letter bo1 Prescriptions: - ketorolac 10 mg Oral tablet - take 1 tablet ORAL route every 6 hours as needed for pain; maximum total bo1 duration of 5 days from all oral, intranasal, or parenteral formulations; 20 tablet; Refills: 0, Product Selection Permitted - Tramadol 50 mg Oral Tablet - take 1 tablet ORAL route every 8 hours as needed; 12 tablet; Refills: 0, bo1 Product Selection Permitted - ondansetron 8 mg Oral Tablet,disintegrating - take 1 tablet ORAL route every 8 hours; 21 tablet; Refills: 0, Product bo1 Selection Permitted Signatures: Dispatcher [employer] Aida Calhoun RN RN Gracie Berg RN RN OeiYoav MD MD bo1 Corrections: (The following items were deleted from the chart) 10:05 10:04 PMHx: COPD (Sleep Apnea); hb hb 10:05 10:04 PMHx: Hypertension (Total abdominal hysterectomy); hb hb
[2024-06-29] MEDS ORDERED: KETOROLAC 30 MG/ML INJ ONE (14:16)
[2024-06-29 15:05] VITALS: TEMP 98.2
[2024-06-29 15:09] VITALS: BP 160/98; O2SAT 98
== END 2024-06-29 14:33 | disposition home or self-care (01) ==
LOC: ER 09:27
DX: G44.219 Episodic tension-type headache, not intractable (principal)
CPT/HCPCS: 36415; 70450; 80048; 85025; 96374; 96375; 99284; J2405; J3010

== ENCOUNTER 2024-11-07 01:39 | Emergency (ER) | payer OTHER ==
--- OUTSIDE RECORDS SUMMARY | 2024-11-07 01:44 | XMS REPORT | Continuity of Care Document ---
Author Name Unknown Address [address] [facility] [address] [place] [address] [facility] Address [address] [facility] [address] [place] [address] Care Team Providers Care Lvn Lpn Name Role Phone Pcp, Patient Does Not Have A Primary Care Physic mikala SEGUNDO BARNES Attending Clinician Unavailable ALEXANDER ESPITIA Attending Clinician Unavailable KIM DHALIWAL Attending Clinician Unavail able KAYLEY DILLON Attending Clinician Unavailab JOSE Najera Attending Clinician Unavailable [id number] Attending Clinician Unavailable REGI LEONARDO Attending Clinician Unav ailROMA Webber Attending Clinician Unavailable UMAIR BRUNO Attending Clinician Unavailable EBONI HEAD Attending Clinician Unavailable [id number] Attending Clinician Unavailable TRAE VALDEZ Attending Clinician Unavaila IVAN Pearson Attending Clinician Lissa jaz GAN MD Attending Clinician Unavailab TRAY Self Attending Clinician Unavailable ANDREA PRINCE Attending Clinician Unavailab Katelyn Lyles Attending Clinician Unavailable ALEXANDRE SNYDER Attending Clinician Unavaila ALEXANDRE Hidalgo Attending Clinician UnavailAlexandre Pichardo MD Attending Clinician Carson Bae MD Attending Clinician [phone] CARSON BAE Attending Clinician Unavailable CARSON BAE Attending Clinician Unavailable ADAM RHODES Admitting Clinician Unavailbob e CARSON BAE Admitting Clinician Unavailable Payers Payer Name Policy Type Policy Number Effective Date Expirati on Date Source [facility] JENIFER CASTILLO COPAY FOCUS 9 [id number] 2024 00:00:00 Problems Condition Name Condition Details Condition Category Status Onset Date Resolution Date Last Treatment Date Treating Clinician Comments Source Rectal bleeding Rectal bleeding Disease Active 09-18 00:00: 00 Ana Allison - Externa l Chronic constipati on Chronic constipati on Disease Active 09-18 00:00: 00 Ana Saucedoybold - Externa l History of sick sinus syndrome History of sick sinus syndrome Disease Active 09-18 00:00: 00 Ana Saucedoybold - Externa l Morbid obesity Morbid obesity Disease Active 08-07 00:00: 00 Ana Seybold - Externa l HTN (hypertens ion) HTN (hypertens ion) Disease Active Ana Seybold - Externa l 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 intracrani al hypertensi on Disease Active Ana Seybold - Externa l 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 2 with diabetic mixed hyperlipid emia Disease Active Ana Seybold - Externa l Fibromyalg ia Fibromyalg ia Disease Active Ana Seybold - Externa l DM neuropathy , type II diabetes mellitus DM neuropathy , type II diabetes mellitus Disease Active Ana Saucedoybold - Externa l Pacemaker Pacemaker Disease Active Guilherme saucedoy Seybold - Externa l CHF (congestiv e heart failure) CHF (congestiv e heart failure) Disease Active Ana Seybold - Externa l Hypothyroi dism (acquired) Hypothyroi dism (acquired) Disease Active Ana Seybold - Externa l Migraine Migraine Disease Active Silvia y Seybold - Externa l Asthma Asthma Disease Active Ana Seybold - Externa l NOEL on CPAP NOEL on CPAP Disease Active Ana Seybold - Externa l History of hysterecto my History of hysterecto my Disease Active Ana Seybold - Externa l History of urinary retention History of urinary retention Disease Active Ana Seybold - Externa l Chronic back pain Chronic back pain Disease Active Ana Seybold - Externa l 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 with hypoxia Disease Active Ana Krishnaold - Externa l Allergies, Adverse Reactions, Alerts Allergy Name Allergy Type Status Severity Reaction(s) Onset Date Inactive Date Treating Clinician Comments Source Iodine Propensi ty to adverse reaction s Active Swelling 6-02 00:00: 00 Ana Krishnaold - Externa l Shellfis h Derived Propensi ty to adverse reaction s Active Anaphylaxis 0 9-03 00:00: 00 [facility] PROCHLOR PERAZINE DRUG INGREDI Active Anaphylaxis 0 9-03 00:00: 00 [facility] SHELLFIS H DERIVED DRUG INGREDI Active Anaphylaxis 0 9-03 00:00: 00 [facility] IODINE DRUG INGREDI Active Anaphylaxis 0 9-03 00:00: 00 [facility] Prochlor perazine Propensi ty to adverse reaction s Active Anaphylaxis 0 9-03 00:00: 00 [facility] Iodine Propensi ty to adverse reaction s Active Anaphylaxis 0 9-03 00:00: 00 [facility] Compazin e Propensi ty to adverse reaction s Active Anaphylaxis, Hives, Itching 2019-0 3-07 00:00: 00 Ana Krishnaold - Externa l Prochlor perazine Edisylat e Propensi ty to adverse reaction s Active Anaphylaxis, Swelling 2019-0 8-27 00:00: 00 Throat swelling Ana Allison - Externa l Azilsart an-Chlor thalidon e Propensi ty to adverse reaction s Active Swelling 2019-0 4-16 00:00: 00 Swelling of throat Ana Allison - Externa l NO KNOWN ALLERGIE S Drug Class Active [facility] Social History Social Habit Start Date Stop Date Quantity Comments Source ASSERTION Not Ana Allison - External Sexual orientation Devorah Allison - External Gender identity Tara Allison - External Alcoholic beverage intake 2024-10-22 00:00:00 2024-10-22 00:00:00 Current drinker of alcohol (finding) Ana Allison - External Tobacco use and exposure 2024-07-16 00:00:00 2024-07-16 00:00:00 Smokeless tobacco non-user Ana Saucedoazmonica - External History of Social function 2024-07-16 00:00:00 2024-07-16 00:00:00 Ana Allison - External Alcohol Comment 2024-07-16 00:00:00 2024-07-16 00:00:00 only on occassion Ana Saucedoazmonica - External Sex 2023-11-12 09:40:57 2023-11-12 09:40:57 Female (finding) Ana Allison - External Sex assigned at 1980 00:00:00 1980 00:00:00 Ana Saucedoazmonica Moiz External Smoking Status Start Date Stop Date Source Tobacco smoking consumption unknown [facility] Never smoked tobacco Ana Allison - External Medications Ordered Medication Name Filled Medication Name Start Date Stop Date Current Medication? Ordering Clinician Indication Dosage Frequency Signature (SIG) Comments Components Source predniSONE (DELTASONE) 20 MG oral tablet predniSONE (DELTASONE) 20 MG oral tablet 10-22 00:00: 00 11-01 23:59 :00 No [id number] 40mg QD Take 2 tablets (40 mg total) by mouth daily for 10 days. Ana deng Galcanezuma b-gnlm (Emgality) 120 MG/ML subcutaneou s Solution Auto-inject or injection Galcanezuma b-gnlm (Emgality) 120 MG/ML subcutaneou s Solution Auto-inject or injection 10-11 00:00: 00 Yes Loading dose: Inject 2 pens (240 mg) under the skin for one dose then inject one pen once a month thereafter for maintenanc e. Ana deng busPIRone HCl 5 MG oral Tablet busPIRone HCl 5 MG oral Tablet 09-25 00:00: 00 Yes [id number] 5mg [id number] 3D Take 1 tablet (5 mg total) by mouth 3 times daily as needed (anxiety). Ana Burnetta sowmya linaCLOtide 145 MCG oral Capsule linaCLOtide 145 MCG oral Capsule 09-25 00:00: 00 Yes [id number] 145ug QD Take 1 capsule (145 mcg total) by mouth daily. Ana deng linaCLOtide 145 MCG oral Capsule linaCLOtide 145 MCG oral Capsule 09-18 10:57: 03 Yes [id number] 145ug QD Take 1 capsule (145 mcg total) by mouth daily. Ana deng Levothyroxi ne Sodium 50 MCG oral Tablet Levothyroxi ne Sodium 50 MCG oral Tablet 09-18 10:43: 45 09-18 00:00 :00 No 50ug QD Take 1 tablet (50 mcg total) by mouth daily. Ana deng Docusate Sodium (DSS) 100 MG oral Capsule Docusate Sodium (DSS) 100 MG oral Capsule 09-18 10:41: 44 09-18 00:00 :00 No 100mg QD Take 100 mg by mouth daily. Ana deng Cyanocobala min (Vitamin B-12) 1000 MCG oral Tablet Cyanocobala min (Vitamin B-12) 1000 MCG oral Tablet 09-18 10:27: 19 Yes 1000ug QD Take 1 tablet (1,000 mcg total) by mouth daily. Ana deng GARLIC OR GARLIC OR 09-18 10:27: 19 Yes Take by mouth. Ana deng busPIRone HCl 5 MG oral Tablet busPIRone HCl 5 MG oral Tablet 09-18 10:27: 19 Yes 5mg Q.5D Take 1 tablet (5 mg total) by mouth 2 times daily. Ana deng Budeson-Gly copyrrol-Fo rmoterol (Breztri Aerosphere) 160-9-4.8 MCG/ACT inhalation Aerosol Budeson-Gly copyrrol-Fo rmoterol (Breztri Aerosphere) 160-9-4.8 MCG/ACT inhalation Aerosol 09-18 10:27: 19 Yes Inhale into the lungs. Ana deng Albuterol-B udesonide (AIRSUPRA IN) Albuterol-B udesonide (AIRSUPRA IN) 09-18 10:27: 19 Yes Inhale into the lungs. Ana deng Furosemide 40 MG oral Tablet Furosemide 40 MG oral Tablet 09-18 00:00: 00 Yes [id number] 40mg Q.5D Take 1 tablet (40 mg total) by mouth 2 times daily. Ana deng Carvedilol 25 MG oral Tablet Carvedilol 25 MG oral Tablet 09-18 00:00: 00 Yes [id number] 25mg Take 1 tablet (25 mg total) by mouth in the morning and 1 tablet (25 mg total) in the evening. Take with meals. Ana deng Levothyroxi ne Sodium 50 MCG oral Tablet Levothyroxi ne Sodium 50 MCG oral Tablet 09-18 00:00: 00 Yes [id number] 50ug QD Take 1 tablet (50 mcg total) by mouth daily. Ana deng Hydrocort-P ramoxine, Perianal, 1-1 % apply externally Foam Hydrocort-P ramoxine, Perianal, 1-1 % apply externally Foam 09-18 00:00: 00 Yes [id number] 1{appli cation} Q.[id number] 3D Apply 1 Applicatio n topically 3 times daily as needed (hemorrhoi ds). Ana deng OZEMPIC (0.25 or 0.5 mg/dose) 2 mg/3 mL SQ Solution Pen-Injecto r OZEMPIC (0.25 or 0.5 mg/dose) 2 mg/3 mL SQ Solution Pen-Injecto r 09-18 00:00: 00 11-13 23:59 :00 No [id number] 3 .25mg Q1W Inject 0.25 mg into the skin once a week. Ana deng Galcanezuma b-gnlm (Emgality) 120 MG/ML subcutaneou s Solution Auto-inject or injection Galcanezuma b-gnlm (Emgality) 120 MG/ML subcutaneou s Solution Auto-inject or injection 09-04 00:00: 00 Yes Loading dose: Inject 2 pens (240 mg) under the skin for one dose then inject one pen once a month thereafter for maintenanc e. Ana deng Cyanocobala min (Vitamin B-12) 1000 MCG oral Tablet 08-30 11:38: 32 Yes 1000ug QD Take 1 tablet (1,000 mcg total) by mouth daily. Ana deng Docusate Sodium (DSS) 100 MG oral Capsule 08-30 11:38: 32 Yes 100mg QD Take 100 mg by mouth daily. Ana deng Albuterol-B udesonide (AIRSUPRA IN) 08-30 11:38: 32 Yes Inhale into the lungs. Ana deng Levothyroxi ne Sodium 50 MCG oral Tablet 08-30 11:38: 32 Yes 50ug QD Take 1 tablet (50 mcg total) by mouth daily. Ana deng busPIRone HCl 5 MG oral Tablet 08-30 11:38: 32 Yes 5mg Q.5D Take 1 tablet (5 mg total) by mouth 2 times daily. Ana deng Budeson-Gly copyrrol-Fo rmoterol (Breztri Aerosphere) 160-9-4.8 MCG/ACT inhalation Aerosol 08-30 11:38: 32 Yes Inhale into the lungs. Ana deng Cyanocobala min (Vitamin B-12) 1000 MCG oral Tablet 08-30 10:50: 04 Yes 1000ug QD Take 1 tablet (1,000 mcg total) by mouth daily. Ana deng Docusate Sodium (DSS) 100 MG oral Capsule 08-30 10:50: 04 Yes 100mg QD Take 100 mg by mouth daily. Ana deng Albuterol-B udesonide (AIRSUPRA IN) 08-30 10:50: 04 Yes Inhale into the lungs. Ana deng Levothyroxi ne Sodium 50 MCG oral Tablet 08-30 10:50: 04 Yes 50ug QD Take 1 tablet (50 mcg total) by mouth daily. Ana deng busPIRone HCl 5 MG oral Tablet 08-30 10:50: 04 Yes 5mg Q.5D Take 1 tablet (5 mg total) by mouth 2 times daily. Ana deng Budeson-Gly copyrrol-Fo rmoterol (Breztri Aerosphere) 160-9-4.8 MCG/ACT inhalation Aerosol 08-30 10:50: 04 Yes Inhale into the lungs. Ana deng Galcanezuma b-gnlm (Emgality) 120 MG/ML subcutaneou s Solution Auto-inject or injection Galcanezuma b-gnlm (Emgality) 120 MG/ML subcutaneou s Solution Auto-inject or injection 08-30 00:00: 00 Yes 120mg Inject 1 mL (120 mg total) into the skin once a month. Ana deng ACETAMINOPH EN-BUTALBIT AL 50-325 MG oral Tablet ACETAMINOPH EN-BUTALBIT AL 50-325 MG oral Tablet 08-30 00:00: 00 Yes one Q 6 hours PRN pain, do not combine with narcotics, benzodiaze pines, or actaminoph en containing compounds, do not drive. Ana deng Zonisamide 50 MG oral Capsule Zonisamide 50 MG oral Capsule 08-30 00:00: 00 09-18 00:00 :00 No 50mg QD Take 1 capsule (50 mg total) by mouth daily. Ana deng Ketorolac Tromethamin e (TORADOL) 30 mg/mL 08-21 13:23: 54 No [id number] 30mg 30 mg, intramuscu lar, ONCE, On Tue08/21/24 at 1330, For 1 dose Ana deng Cyanocobala min (Vitamin B-12) 1000 MCG oral Tablet 08-21 13:03: 23 Yes 1000ug QD Take 1 tablet (1,000 mcg total) by mouth daily. Aan deng Docusate Sodium (DSS) 100 MG oral Capsule 08-21 13:03: 23 Yes 100mg QD Take 100 mg by mouth daily. Ana deng Albuterol-B udesonide (AIRSUPRA IN) 08-21 13:03: 23 Yes Inhale into the lungs. Ana deng Levothyroxi ne Sodium 50 MCG oral Tablet 08-21 13:03: 23 Yes 50ug QD Take 1 tablet (50 mcg total) by mouth daily. Ana deng busPIRone HCl 5 MG oral Tablet 08-21 13:03: 23 Yes 5mg Q.5D Take 1 tablet (5 mg total) by mouth 2 times daily. Ana deng Budeson-Gly copyrrol-Fo rmoterol (Breztri Aerosphere) 160-9-4.8 MCG/ACT inhalation Aerosol 08-21 13:03: 23 Yes Inhale into the lungs. Ana deng Duloxetine HCl [address] Particles Duloxetine HCl [address] Particles 08-21 00:00: 00 Yes [id number] 60mg QD Take 1 capsule (60 mg total) by mouth daily. Ana deng Atorvastati n Calcium 40 MG oral Tablet Atorvastati n Calcium 40 MG oral Tablet 08-15 00:00: 00 Yes [id number] 3 40mg QD Take 1 tablet (40 mg total) by mouth nightly. Ana deng Empaglifloz in 10 MG oral Tablet Empaglifloz in 10 MG oral Tablet 08-15 00:00: 00 Yes 10mg QD Take 1 tablet (10 mg total) by mouth daily. Ana deng Furosemide 40 MG oral Tablet Furosemide 40 MG oral Tablet 08-15 00:00: 00 09-18 00:00 :00 No 40mg QD Take 1 tablet (40 mg total) by mouth daily. Ana deng OZEMPIC (0.25 or 0.5 mg/dose) 2 mg/3 mL SQ Solution Pen-Injecto r OZEMPIC (0.25 or 0.5 mg/dose) 2 mg/3 mL SQ Solution Pen-Injecto r 08-15 00:00: 00 09-18 00:00 :00 No [id number] .25mg Q1W Inject 0.25 mg into the skin once a week. Ana deng Carvedilol 25 MG oral Tablet Carvedilol 25 MG oral Tablet 08-15 00:00: 00 09-18 00:00 :00 No [id number] 12.5mg Take 0.5 tablets (12.5 mg total) by mouth in the morning and 0.5 tablets (12.5 mg total) in the evening. Take with meals. Ana deng glipiZIDE 5 MG oral Tablet glipiZIDE 5 MG oral Tablet 08-14 00:00: 00 Yes [id number] 5mg Take 1 tablet (5 mg total) by mouth daily (before a meal). Ana deng Omeprazole 40 MG oral Delayed Release Capsule 08-07 08:24: 39 08-07 00:00 :00 No 40mg QD Take 1 capsule (40 mg total) by mouth daily. Ana deng Cyanocobala min (Vitamin B-12) 1000 MCG oral Tablet 08-07 08:05: 32 Yes 1000ug QD Take 1 tablet (1,000 mcg total) by mouth daily. Ana deng Docusate Sodium (DSS) 100 MG oral Capsule 08-07 08:05: 32 Yes 100mg QD Take 100 mg by mouth daily. Ana deng GARLIC OR 08-07 08:05: 32 Yes Take by mouth. Ana deng Levothyroxi ne Sodium 50 MCG oral Tablet 08-07 08:05: 32 Yes 50ug QD Take 1 tablet (50 mcg total) by mouth daily. Ana deng busPIRone HCl 5 MG oral Tablet 08-07 08:05: 32 Yes 5mg Q.5D Take 1 tablet (5 mg total) by mouth 2 times daily. Ana deng Budeson-Gly copyrrol-Fo rmoterol (Breztri Aerosphere) 160-9-4.8 MCG/ACT inhalation Aerosol 08-07 08:05: 32 Yes Inhale into the lungs. Ana deng Albuterol-B udesonide (AIRSUPRA IN) 08-07 08:03: 02 Yes Inhale into the lungs. Ana deng Dapaglifloz in Propanediol (Farxiga) 5 MG oral Tablet 08-07 00:00: 00 Yes [id number] 1{tbl} QD Take 1 tablet by mouth daily. Ana deng Atorvastati n Calcium 20 MG oral Tablet 08-07 00:00: 00 Yes [id number] 3 20mg QD Take 1 tablet (20 mg total) by mouth nightly. Ana deng Metformin HCl 500 MG oral Tablet Metformin HCl 500 MG oral Tablet 08-07 00:00: 00 Yes [id number] 9106 500mg Take 1 tablet (500 mg total) by mouth in the morning and 1 tablet (500 mg total) in the evening. Take with meals. Ana deng Pantoprazol e Sodium 40 MG oral Tablet Delayed Response Pantoprazol e Sodium 40 MG oral Tablet Delayed Response 08-07 00:00: 00 Yes [id number] 40mg QD Take 1 tablet (40 mg total) by mouth daily. Ana deng Gabapentin 400 MG oral Capsule Gabapentin 400 MG oral Capsule 08-07 00:00: 00 Yes [id number] 400mg Q.[id number] 3D Take 1 capsule (400 mg total) by mouth 3 times daily. Ana deng Amlodipine Besylate (Norvasc) 10 MG oral Tablet Amlodipine Besylate (Norvasc) 10 MG oral Tablet 08-07 00:00: 00 Yes [id number] 10mg QD Take 1 tablet (10 mg total) by mouth daily. Ana deng Atorvastati n Calcium 10 MG oral Tablet 08-07 00:00: 00 08-07 00:00 :00 No [id number] 3 20mg QD Take 2 tablets (20 mg total) by mouth nightly. Ana deng Cyanocobala min (Vitamin B-12) 1000 MCG oral Tablet 07-16 14:33: 42 Yes 1000ug QD Take 1 tablet (1,000 mcg total) by mouth daily. Ana deng Docusate Sodium (DSS) 100 MG oral Capsule 07-16 14:33: 42 Yes 100mg QD Take 100 mg by mouth daily. Ana deng Albuterol-B udesonide (AIRSUPRA IN) 07-16 14:33: 42 Yes Inhale into the lungs. Ana deng Levothyroxi ne Sodium 50 MCG oral Tablet 07-16 14:33: 42 Yes 50ug QD Take 1 tablet (50 mcg total) by mouth daily. Ana deng Omeprazole 40 MG oral Delayed Release Capsule 07-16 14:33: 42 Yes 40mg QD Take 1 capsule (40 mg total) by mouth daily. Ana deng busPIRone HCl 5 MG oral Tablet 07-16 14:33: 42 Yes 5mg Q.5D Take 1 tablet (5 mg total) by mouth 2 times daily. nAa deng Budeson-Gly copyrrol-Fo rmoterol (Breztri Aerosphere) 160-9-4.8 MCG/ACT inhalation Aerosol 07-16 14:33: 42 Yes Inhale into the lungs. Ana deng Carvedilol 12.5 MG oral Tablet 07-16 00:00: 00 Yes [id number] 12.5mg Take 1 tablet (12.5 mg total) by mouth in the morning and 1 tablet (12.5 mg total) in the evening. Take with meals. Ana deng Triamcinolo ne Acetonide 0.1 % apply externally Cream 07-16 00:00: 00 Yes [id number] 1{appli cation} QD Apply 1 Applicatio n topically daily. Ana deng Ketorolac Tromethamin e 10 MG oral Tablet 06-29 00:00: 00 Yes TAKE 1 TABLET BY MOUTH EVERY 6 HOURS NEEDED FOR PAIN (MAX TOTAL OF 5 DAYS FROM ORAL, INTRANASAL , OR PARENTERAL FORMULATIO N) Ana deng Ondansetron (ZOFRAN) 8 MG oral TABLET DISPERSIBLE Ondansetron (ZOFRAN) 8 MG oral TABLET DISPERSIBLE 16 00:00: 00 Yes DISSOLVE 1 TABLET IN MOUTH EVERY 8 HOURS Ana deng Diclofenac Sodium 75 MG oral Tablet Delayed Response Diclofenac Sodium 75 MG oral Tablet Delayed Response 06-24 00:00: 00 Yes 75mg Q.5D Take 1 tablet (75 mg total) by mouth 2 times daily as needed. Ana deng Orphenadrin e Citrate CR 100 MG oral Tablet 12 Hour Sustained Release 06-24 00:00: 00 08-07 00:00 :00 No 100mg Q.5D Take 1 tablet (100 mg total) by mouth 2 times daily as needed. Ana deng predniSONE 20 mg tablet 10-27 00:00: 00 11-01 04:59 :00 No [id number] 40mg Take 2 tablets by mouth in the morning for 4 days. [facility] furosemide (LASIX) injection 40 mg 10-26 23:15: 00 10-26 23:40 :00 No 40mg 40 mg, IV Push, ONCE, 1 dose, On Tue10/27/23 at 1815, VALENTINE [facility] ipratropium -albuteroL (DUONEB) 0.5 mg-3 mg(2.5 mg base)/3 mL nebulizer solution 3 mL 10-26 23:00: 00 10-26 22:21 :00 No 3mL 3 mL, Inhalation , ONCE, 1 dose, On Liyah 10/27/23 at 1800, Routine [facility] dexamethaso ne sod phos PF injection 10 mg 10-26 22:15: 00 10-26 22:21 :00 No 10mg 10 mg, Slow IV Push, ONCE, 1 dose, On Liyah 10/27/23 at 1715, 1 mL [facility] furosemide 20 mg tablet 10-26 00:00: 00 11-03 04:59 :00 No [id number] 40mg Take 2 tablets by mouth in the morning for 7 days. [facility] magnesium sulfate in water 2 gram/50 mL (4 %) infusion 2 g 10-17 21:15: 00 10-17 21:01 :00 No 2g 2 g, IV Piggyback, Administer over 15 Minutes, ONCE, 1 dose, On Tue10/18/23 at 1615, Routine [facility] methocarbam oL (ROBAXIN) injection 1,000 mg 10-17 19:45: 00 10-17 20:01 :00 No 1000mg 1,000 mg, Slow IV Push, Administer over 3-5 Minutes, ONCE, 1 dose, On Tue10/18/23 at 1445, Routine [facility] ketorolac (TORADOL) injection 15 mg 10-17 19:45: 00 10-17 19:58 :00 No 15mg 15 mg, Slow IV Push, ONCE, 1 dose, On Tue10/18/23 at 1445, Routine [facility] meclizine (TRAVEL-EAS E (MECLIZINE) ) tablet 25 mg 10-17 19:00: 00 10-17 19:58 :00 No 25mg 25 mg, Oral, ONCE, 1 dose, On Tue10/18/23 at 1400, VALENTINE [facility] meclizine 25 mg tablet 10-17 00:00: 00 Yes [id number] 25mg Take 1 tablet by mouth 3 (three) times daily as needed for Dizziness or Nausea. [facility] methocarbam oL 750 mg tablet 10-17 00:00: 00 Yes [id number] 750mg Take 1 tablet by mouth 4 (four) times daily. [facility] Tizanidine HCl 4 MG oral Tablet 10-06 00:00: 00 08-07 00:00 :00 No 4mg Q.25D Take 1 tablet (4 mg total) by mouth every 6 hours as needed. Ana deng Ferrous Sulfate 325 (65 Fe) MG oral Tablet Ferrous Sulfate 325 (65 Fe) MG oral Tablet 09-12 00:00: 00 09-18 00:00 :00 No 325mg QD Take 1 tablet (325 mg total) by mouth daily (with breakfast) . Ana deng Fingerstix Lancets does not apply Misc Fingerstix Lancets does not apply Misc 09-11 00:00: 00 Yes 1{each} QD 1 each by other route daily. Ana deng Metformin HCl 500 MG oral Tablet 09-11 00:00: 00 08-07 00:00 :00 No 500mg Take 1 tablet (500 mg total) by mouth. Ana deng AcetaZOLAMI DE (DIAMOX) 500 MG oral Capsule 12 Hour Sustained Release AcetaZOLAMI DE (DIAMOX) 500 MG oral Capsule 12 Hour Sustained Release 09-05 00:00: 00 09-18 00:00 :00 No 500mg Q.5D Take 1 capsule (500 mg total) by mouth 2 times daily. Ana deng Isosorbide Mononitrate CR 30 MG oral TABLET SR 24 HR Isosorbide Mononitrate CR 30 MG oral TABLET SR 24 HR 08-30 00:00: 00 Yes 30mg Take 1 tablet (30 mg total) by mouth every morning. Ana deng Atorvastati n Calcium 10 MG oral Tablet 4-14 00:00: 00 08-07 00:00 :00 No 10mg 1 tablet (10 mg total). Ana deng Gabapentin 300 MG oral Capsule 6-02 00:00: 00 08-07 00:00 :00 No 300mg Q.[id number] 3D Take 1 capsule (300 mg total) by mouth 3 times daily. Ana Seybold - Externa l Carvedilol 12.5 MG oral Tablet 07-16 00:00: 00 07-16 00:00 :00 No Ana Estefany - Externa l Immunizations Ordered Immunization Name Filled Immunization Name Date Status Comments Source Pneumococcal Vaccine, Polysaccharide Pneumococcal Vaccine, Polysaccharide 2021-03-17 00:00:00 Completed Ana Seybold - External Pneumococcal Vaccine, Polysaccharide Unknown Completed Ana Seybold - External Pneumococcal Vaccine, Polysaccharide Unknown Completed Ana Seybold - External Pneumococcal Vaccine, Polysaccharide Unknown Completed Ana Seybold - External Pneumococcal Vaccine, Polysaccharide Unknown Completed Ana Seybold - External Pneumococcal Vaccine, Polysaccharide Unknown Completed Ana Seybold - External Vital Signs Vital Name Observation Time Observation Value Comments S ource Systolic blood pressure 2024-10-22 14:15:00 149 mm[Hg] Ana Seybold - External Diastolic blood pressure 2024-10-22 14:15:00 90 mm[Hg] Ana Seybold - External Heart rate 2024-10-22 14:15:00 75 /min Ana Seybold - External Body temperature 2024-10-22 14:15:00 36.33 Natty Ana Seybold - External Respiratory rate 2024-10-22 14:15:00 16 /min Ana Seybold - External Body height 2024-10-22 14:15:00 157.5 cm Ana Seybold - External Body weight 2024-10-22 14:15:00 131.09 kg Ana Seybold - External BMI 2024-10-22 14:15:00 52.86 kg/m2 Ana Seybold - External Oxygen saturation in Arterial blood by Pulse oximetry 2024-10-22 14:15:00 97 /min Ana Seybold - External Systolic blood pressure 2024-09-18 10:23:00 142 mm[Hg] Ana Seybold - External Diastolic blood pressure 2024-09-18 10:23:00 90 mm[Hg] Ana Seybold - External Heart rate 2024-09-18 10:23:00 111 /min Ana Seybold - External Body temperature 2024-09-18 10:23:00 36.94 Natty Ana Seybold - External Respiratory rate 2024-09-18 10:23:00 20 /min Ana Seybold - External Body height 2024-09-18 10:23:00 157.5 cm Ana Seybold - External Body weight 2024-09-18 10:23:00 132.36 kg Ana Seybold - External BMI 2024-09-18 10:23:00 53.37 kg/m2 Ana Seybold - External Oxygen saturation in Arterial blood by Pulse oximetry 2024-09-18 10:23:00 95 /min Ana Seybold - External Systolic blood pressure 2024-08-30 16:37:00 148 mm[Hg] Ana Seybold - External Diastolic blood pressure 2024-08-30 16:37:00 92 mm[Hg] Ana Seybold - External Heart rate 2024-08-30 16:37:00 68 /min Ana Seybold - External Body temperature 2024-08-30 16:37:00 36.67 Natty Ana Seybold - External Respiratory rate 2024-08-30 16:37:00 18 /min Ana Seybold - External Body height 2024-08-30 16:37:00 157.5 cm Ana Seybold - External Body weight 2024-08-30 16:37:00 129.729 kg Ana Seybold - External BMI 2024-08-30 16:37:00 52.31 kg/m2 Ana Seybold - External Oxygen saturation in Arterial blood by Pulse oximetry 2024-08-30 16:37:00 100 /min Ana Seybold - External Systolic blood pressure 2024-08-30 15:49:00 148 mm[Hg] Alert about pt high bp. Ana Seybold - External Diastolic blood pressure 2024-08-30 15:49:00 92 mm[Hg] Alert about pt high bp. Ana Seybold - External Heart rate 2024-08-30 15:49:00 68 /min Ana Seybold - External Body temperature 2024-08-30 15:49:00 36.67 Natty Ana Seybold - External Respiratory rate 2024-08-30 15:49:00 18 /min Ana Seybold - External Body height 2024-08-30 15:49:00 157.5 cm Ana Seybold - External Body weight 2024-08-30 15:49:00 129.729 kg Ana Seybold - External BMI 2024-08-30 15:49:00 52.31 kg/m2 Ana Seybold - External Oxygen saturation in Arterial blood by Pulse oximetry 2024-08-30 15:49:00 100 /min Ana Seybold - External Systolic blood pressure 2024-08-21 18:02:00 124 mm[Hg] Ana Seybold - External Diastolic blood pressure 2024-08-21 18:02:00 84 mm[Hg] Ana Seybold - External Heart rate 2024-08-21 18:02:00 94 /min Ana Seybold - External Respiratory rate 2024-08-21 18:02:00 16 /min Ana Seybold - External Body height 2024-08-21 18:02:00 157.5 cm Ana Seybold - External Body weight 2024-08-21 18:02:00 134.718 kg Ana Seybold - External BMI 2024-08-21 18:02:00 54.32 kg/m2 Ana Seybold - External Systolic blood pressure 2024-08-07 13:05:00 138 mm[Hg] Ana Seybold - External Diastolic blood pressure 2024-08-07 13:05:00 92 mm[Hg] Ana Seybold - External Heart rate 2024-08-07 13:05:00 99 /min Ana Seybold - External Body temperature 2024-08-07 13:05:00 36.44 Natty Ana Seybold - External Respiratory rate 2024-08-07 13:05:00 18 /min Ana Seybold - External Body height 2024-08-07 13:05:00 157.5 cm Ana Seybold - External Body weight 2024-08-07 13:05:00 131.543 kg Ana Seybold - External BMI 2024-08-07 13:05:00 53.04 kg/m2 Ana Seybold - External Oxygen saturation in Arterial blood by Pulse oximetry 2024-08-07 13:05:00 99 /min Ana Seybold - External Systolic blood pressure 2024-07-16 19:25:00 134 mm[Hg] Ana Seybold - External Diastolic blood pressure 2024-07-16 19:25:00 86 mm[Hg] Ana Allison - External Heart rate 2024-07-16 19:25:00 98 /min Ana Allison - External Body temperature 2024-07-16 19:25:00 36.33 Natty Ana Allison - External Respiratory rate 2024-07-16 19:25:00 20 /min Ana Allison - External Body height 2024-07-16 19:25:00 157.5 cm Ana Allison - External Body weight 2024-07-16 19:25:00 89.994 kg Ana Allison - External BMI 2024-07-16 19:25:00 36.29 kg/m2 Ana Allison - External Oxygen saturation in Arterial blood by Pulse oximetry 2024-07-16 19:25:00 98 /min Ana Allison - External Systolic blood pressure 2023-10-27 21:54:00 140 mm[Hg] [facility] Diastolic blood pressure 2023-10-27 21:54:00 89 mm[Hg] [facility] Heart rate 2023-10-27 21:54:00 69 /min [facility] Respiratory rate 2023-10-27 21:54:00 18 /min [facility] Oxygen saturation in Arterial blood by Pulse oximetry 2023-10-27 21:54:00 97 /min [facility] Body temperature 2023-10-27 18:20:00 36.94 Natty [facility] Body height 2023-10-27 18:17:00 157.5 cm [facility] Body weight 2023-10-27 18:17:00 122.471 kg [facility] BMI 2023-10-27 18:17:00 49.38 kg/m2 [facility] Heart rate 2023-10-18 21:45:00 78 /min [facility] Oxygen saturation in Arterial blood by Pulse oximetry 2023-10-18 21:45:00 99 /min [facility] Systolic blood pressure 2023-10-18 21:30:00 118 mm[Hg] [facility] Diastolic blood pressure 2023-10-18 21:30:00 75 mm[Hg] [facility] Respiratory rate 2023-10-18 21:30:00 18 /min [facility] Body height 2023-10-18 17:38:00 157.5 cm [facility] Body temperature 2023-10-18 17:37:00 36.28 Natty [facility] Body weight 2023-10-18 17:37:00 122.471 kg [facility] BMI 2023-10-18 17:37:00 49.38 kg/m2 [facility] Procedures Procedure Date / Time Performed Performing Clinician Source PRE/POST SPIROMETRY (PPO) 2024-10-22 15:05:25 Rozina Barnes - External ALLERGENS, ZONE 6 2024-10-22 00:00:00 Guilherme Allison - External IMMUNOGLOBULIN E, TOTAL 2024-10-22 00:00:00 Ana Allison - External CBC WITH DIFFERENTIAL 2024-10-22 00:00:00 Ana Allison - External ECG- ADULT 2024-10-22 00:00:00 Ana bowiebotrei - External POCT GLUCOSE (AUTOMATED) 2023-10-27 21:53:00 MorricalAlexandre [facility] TROPONIN I 2023-10-27 20:08:00 [facility] COMP. METABOLIC PANEL ([id number]) 2023-10-27 20:08:00 Jignesh Castro [facility] CBC WITH DIFF 2023-10-27 20:08:00 Jignesh Castro [facility] N-TERMINAL PRO-BNP 2023-10-27 20:08:00 Jignesh Castro [facility] XR CHEST 1 VW 2023-10-27 18:58:00 Jignesh Castro [facility] URINALYSIS 2023-10-18 20:50:00 [facility] XR CHEST 2 VW 2023-10-18 19:55:35 Lila Cooper [facility] TROPONIN I 2023-10-18 19:47:00 [facility] COMP. METABOLIC PANEL ([id number]) 2023-10-18 19:47:00 Lila Cooper [facility] CBC WITH DIFF 2023-10-18 19:47:00 Lila Cooper [facility] N-TERMINAL PRO-BNP 2023-10-18 19:47:00 Lila Cooper [facility] CT HEAD WO CONTRAST 2023-10-18 19:34:52 Nicki Cooper [facility] PULMONARY STRESS TESTING Guilehrme saucedoyusra Estefany - External Plan of Care Planned Activity Planned Date Details Comments Source Encounters Start Date/Time End Date/Time Encounter Type Admission Type Attending [facility] Care Facility Care Department Encounter ID Source 2024-12-07 14:00:00 2024-12-07 14:00:00 Outpatient [facility] [id number] [facility] 2024-[facility]-30 15:15:00 2024-11-30 15:15:00 Outpatient ALEXANDER ESPITIA [id number] [facility] 2024-11-22 14:00:00 2024-11-22 14:00:00 Outpatient KIM DHALIWAL [id number] [facility] 2024-11-20 14:00:00 2024-11-20 14:00:00 Outpatient KAYLEY DILLON [id number] [facility] 2024-11-02 14:00:00 2024-11-02 14:00:00 Outpatient JOSE FENG [id number] [facility] 2024-11-02 00:00:00 2024-11-02 00:00:00 Outpatient KAYLEY DILLON [id number] [facility] 2024-10-23 09:15:00 2024-10-23 09:15:00 Outpatient ALEXANDER ESPITIA [id number] [facility] 2024-10-22 15:45:00 2024-10-22 15:45:00 Outpatient EWA HAAS [id number] [facility] 2024-10-22 14:30:00 2024-10-22 14:30:00 Outpatient SEGUNDO BARNES ANA HAAS [id number] [facility] 2024-10-11 00:00:00 2024-10-11 00:00:00 Outpatient REGI LEONARDO ANA HAAS [id number] [facility] 2024-10-09 13:00:00 2024-10-09 13:00:00 Outpatient OMER ORMA ANA HAAS [id number] [facility] 2024-10-08 11:00:00 2024-10-08 11:00:00 Outpatient ANA HAAS [id number] [facility] 2024-10-05 09:15:00 2024-10-05 09:15:00 Outpatient ANA HAAS [id number] [facility] 2024-10-04 11:30:00 2024-10-04 11:30:00 Outpatient SEGUNDO BARNES AAN HAAS [id number] [facility] 2024-10-02 00:00:00 2024-10-02 00:00:00 Outpatient DAMIONUMAIR ANA HAAS [id number] [facility] 2024-09-28 13:30:00 2024-09-28 13:30:00 Outpatient EBONI HEAD ANA HAAS [id number] [facility] 2024-09-25 09:55:00 2024-09-25 09:55:00 Outpatient NYZ850Leilani HAAS [id number] [facility] 2024-09-25 09:15:00 2024-09-25 09:15:00 Outpatient COURTNEY TRAE HAAS [id number] [facility] 2024-09-25 00:00:00 2024-09-25 00:00:00 Outpatient ANDREA ESPITIAAND ANA HAAS [id number] [facility] 2024-09-24 14:00:00 2024-09-24 14:00:00 Outpatient ANA HAAS [id number] [facility] 2024-09-21 11:15:00 2024-09-21 11:15:00 Outpatient ANA HAAS [id number] Ana [facility] 2024-09-18 10:15:00 2024-09-18 10:15:00 Outpatient ALEXANDER ESPITIA ANA HAAS [id number] [facility] 2024-09-18 00:00:00 2024-09-18 00:00:00 Outpatient ANA HAAS [id number] [facility] 2024-09-13 13:15:00 2024-09-13 13:15:00 Outpatient AAN HAAS [id number] [facility] 2024-09-13 11:00:00 2024-09-13 11:00:00 Outpatient ANA HAAS [id number] [facility] 2024-09-11 00:00:00 2024-09-11 00:00:00 Outpatient KAYLEY DILLON [id number] [facility] 2024-09-10 11:30:00 2024-09-10 11:30:00 Outpatient DAVIDSEGUNDO MALIN ANA HAAS [id number] [facility] 2024-09-07 00:00:00 2024-09-07 00:00:00 Outpatient ALEXANDER ESPITIA ANA HA[facility] [id number] [facility] 2024-09-04 00:00:00 2024-09-04 00:00:00 Outpatient ADELSO ANGIEABIMBOLA ANA HAAS [id number] [facility] 2024-09-03 10:00:00 2024-09-03 10:00:00 Outpatient TRAE VALDEZ [id number] [facility] 2024-09-03 00:00:00 2024-09-03 00:00:00 Outpatient REGI LEONARDO [id number] [facility] 2024-08-31 10:20:00 2024-08-31 10:20:00 Outpatient ANA HAAS [id number] [facility] 2024-08-30 11:40:00 2024-08-30 11:40:00 Outpatient JOSE FENG [id number] [facility] 2024-08-30 11:15:00 2024-08-30 11:15:00 Outpatient KAYLEY DILLON [id number] [facility] 2024-08-28 12:00:00 2024-08-28 12:00:00 Outpatient ANA HAAS [id number] [facility] 2024-08-28 00:00:00 2024-08-28 00:00:00 Outpatient SONIDO EBONI ANA HAAS [id number] [facility] 2024-08-28 00:00:00 2024-08-28 00:00:00 Outpatient MD ANA RODRIGUEZ [id number] [facility] 2024-08-23 14:00:00 2024-08-23 14:00:00 Outpatient ANA HAAS [id number] [facility] 2024-08-22 11:00:00 2024-08-22 11:00:00 Outpatient TRAE VALDEZ ANA HAAS [id number] [facility] 2024-08-21 13:00:00 2024-08-21 13:00:00 Outpatient KIM DHALIWAL [id number] [facility] 2024-08-19 00:00:00 2024-08-19 00:00:00 Outpatient SAYDA HERNANDEZGrace HAAS [id number] [facility] 2024-08-15 13:30:00 2024-08-15 13:30:00 Outpatient [id number] ANA HAAS [id number] [facility] 2024-08-15 13:30:00 2024-08-15 13:30:00 Outpatient BOOMereEBONI [id number] [facility] 2024-08-14 09:30:00 2024-08-14 09:30:00 Outpatient TRAE VALDEZ ANA HAAS [id number] [facility] 2024-08-14 00:00:00 2024-08-14 00:00:00 Outpatient ALEXANDER ESPITIA [id number] [facility] 2024-08-07 08:15:00 2024-08-07 08:15:00 Outpatient ALEXANDER ESPITIA [id number] [facility] 2024-08-07 00:00:00 2024-08-07 00:00:00 Outpatient ANA LUNASEY [id number] [facility] 2024-08-06 14:30:00 2024-08-06 14:30:00 Outpatient ANDREA PRINCE ANA ANA [id number] [facility] 2024-08-03 00:00:00 2024-08-03 00:00:00 Outpatient ALEXANDER ESPITIA ANA [id number] [facility] 2024-07-27 15:00:00 2024-07-27 15:00:00 Outpatient SEGUNDO BARNES ANA ANA [id number] [facility] 2024-07-27 11:20:00 2024-07-27 11:20:00 Outpatient [id number] ANA ANA [id number] [facility] 2024-07-25 00:00:00 2024-07-25 00:00:00 Outpatient ALEXANDER ESPITIA ANA HAAS [id number] [facility] 2024-07-17 00:00:00 2024-07-17 00:00:00 Outpatient MD ANA RODRIGUEZ [id number] [facility] 2024-07-16 15:35:00 2024-07-16 15:35:00 Outpatient [id number] ANA LUNASEY [id number] [facility] 2024-07-16 14:30:00 2024-07-16 14:30:00 Outpatient ALEXANDER ESPITIA ANA HAAS [id number] [facility] 2024-06-25 08:00:00 2024-06-25 08:00:00 Outpatient ALEXANDER ESPITIA ANA HAAS [id number] [facility] 2023-11-30 17:10:57 2023-11-30 17:10:57 Outpatient [facility] [id number] Alexandre Gusman 2023-11-09 00:00:00 2023-11-09 11:47:00 Letter (Out) Campaigns, Generic Provider Campaigns, Generic Provider [facility] 1.2.840.114 [id number] [id number] [id number] [facility] 2023-10-27 13:21:00 2023-10-27 18:47:00 Emergency X ALEXANDRE SNYDER [facility] ERT [id number] [facility] 2023-10-27 13:21:00 2023-10-27 18:47:00 Emergency Alexandre Snyder [facility] [id number] [id number] [id number] [facility] 2023-10-18 12:39:00 2023-10-18 17:18:00 Emergency Carson Bae [facility] [id number] [id number] [id number] [id number] [facility] 2023-10-18 12:39:00 2023-10-18 17:18:00 Emergency X CARSON BAE G[facility] ERT [id number] [facility] Results Test Description Test Time Test Comments Results Result Co mments Source [facility] [id number] 19:25:37PROCEDURE: XR CHEST 1 VW 10/27/2023 1:50 PM CLINICAL INDICATION: sob COMPARISON: Radiograph of 10/18/2023 FINDINGS: The lungs are clear. There is no pleural effusion. ?No pneumothorax. The cardiac size is normal. Left chest wall cardiac pacer leads overlyingright atrium and right ventricle. No aggressive osseous lesion. [facility] [id number] 21:43:24EXAM: XR CHEST 2 VW COMPARISON: None HISTORY: Stated history of pseudotumor cerebri, presented withdizziness. FINDINGS: Left chest wall pacemaker is noted, with leads terminating in the rightatrium and right ventricle. Lungs: The lungs are well expanded and clear. No focal opacity. No pleuralabnormality. Heart/Mediastinum: The cardiomediastinal silhouette is normal toborderline. Bones and soft tissues: No acute osseous abnormality is visualized.[facility]AL [id number] 20:34:21* Test Item Value Reference Range Interpretation Comme nts NT-proBNP (test code = 15812-6) 88 pg/mL <=125 Lab Interpretation (test cod e = 15727-3) Normal [facility] [id number] 20:34:21* Test Item Value Reference Range Interpretation Comme nts TROPONIN I (test code = 4745470898) 0.009 ng/mL <=0.034 YAMIL (test code = [...] of biotin. Lab Interpretation (test code = 59283-8) Normal [facility]OLIC PAN[facility] ([id number])2023-10-18 20:23:56* Test Item Value Reference Range Interpretation Comme nts NA (test code = 6550026892) 142 mmol/L 135-145 K (test code = 4934614847) 4.4 mmol/L 3.5-5.0 Slight hemolysis CL (test code = 1814837036) 109 mmol/L 98-108 H CO2 TOTAL (test code = 2562969995) 22 mmol/L 23-31 L AGAP (test code = 7434078178) 11 2-16 BUN (test code = 7609409501) 15 mg/dL 7-23 Slight hemolysis GLUCOSE (test code = 9325266821) 147 mg/dL 70-110 H CREATININE (test code = 2160-0) 0.87 mg/dL 0.50-1.04 TOTAL BILI (test code = 0129249307) 0.5 mg/dL 0.1-1.1 CALCIUM (test code = 2736419865) 8.6 mg/dL 8.6-10.6 T PROTEIN (test code = 1569042715) 7.0 g/dL 6.3-8.2 ALBUMIN (test code = 5883405315) 4.0 g/dL 3.5-5.0 ALK PHOS (test code = 0222564742) 74 U/L 34-122 Slight hemolysis ALTv (test code = 1742-6) 36 U/L 5-35 H AST(SGOT) (test code = 5988520866) 36 U/L 13-40 Slight hemolysis eGFR (test code = 83987-9) 83.9 mL/min/1.73m2 CKD-EPI eGFR (2020). Assuming creatinine has been stable day-to-day for at least three months, the eGFR indicates Category G2 (60 - 89 mL/min/1.73 m2) Lab Interpretation (test code = 65836-6) Abnormal [facility] WITH [id number] 20:13:16* Test Item Value Reference Range Interpretation [...] g/dL 31.6-35.1 L RDW-SD (test code = 75300-5) 60.7 fL 39.0-49.9 H RDW-CV (test code = 788-0) 20.3 % 12.0-15.5 H PLT (test code = 777-3) 227 166-358 MPV (test code = 22696-9) 9.7 fL 9.5-12.9 NRBC/100 WBC (test code = 3763697629) 0.0 0.0-10.0 NRBC x10^3 (test code = 4613183278) See_Comment [Automated messa ge] The system which generated this result transmitted reference range: 10*3/?L. The reference range was not used to interpret this result as normal/abnormal. GRAN MAT (NEUT) % (test code = 770-8) 60.7 % IMM GRAN % (test code = 1196119749) 0.70 % LYMPH % (test code = 736-9) 30.5 % MONO % (test code = 5905-5) 5.3 % EOS % (test code = 713-8) 2.3 % BASO % (test code = 706-2) 0.5 % GRAN MAT x10^3(ANC) (test code = 1303912401) 3.40 10*3/uL 1.88-7.09 IMM GRAN x10^3 (test code = 7493652250) 0.04 10*3/uL 0.00-0.06 LYMPH x10^3 (test code = 731-0) 1.71 10*3/uL 1.32-3.29 MONO x10^3 (test code = 742-7) 0.30 10*3/uL 0.33-0.92 L EOS x10^3 (test code = 711-2) 0.13 10*3/uL 0.03-0.39 BASO x10^3 (test code = 704-7) 0.03 10*3/uL 0.01-0.07 Lab Interpretation (test code = 09628-2) Abnormal [facility] [id number] 19:45:09CT HEAD WO CONTRAST HISTORY: Dizziness, persistent/recurrent, [...] clear. Thecalvarium and central skull base are unremarkable.[facility] Notes Date/Time Note Provider Source Referral ID Status Reason Start Date Expiration Date Visits Requested Visits Authorized [id number] Authorized Specialty Services Required 07/16/2024 10/14/2024 1 1 AnaEstefany [id number] 17:03:51* Segundo Barnes MD - 10/22/2024 2:44 PM CDT Images from the original note were not included. Patient and patient’s participants in attendance, if any, consented to the use of [employer]), a new technology product that uses artificial intelligence to assist the provider to document the patient encounter and to record this visit. Reason for visit: Pulmonary evaluation Referring physician: Alexander Espitia DO History of present illness: History of Present Illness 44-year-old lady She has been diagnosed with sleep apnea and is currently using a CPAP machine, which he tolerates well. believes that a full face mask would enhance his comfort. The last sleep study was conducted in 2022, revealing 133 events per hour. She underwent two sleep studies at a sleep center, including a titration study, but the optimal pressure for his CPAP machine was not determined. A follow-up check a few weeks after starting CPAP indicated some improvement. She did not bring his CPAP machine to today's appointment. Also has asthma since , which has been worsening, possibly due to poor air quality. He struggles with breathing, particularly when outdoors, and often feels short of breath and on the verge of fainting. Prolonged exposure to heat leaves her feeling exhausted and devoid of energy. He also reports wheezing and coughing, which he attributes to a recent cold. He wakes up from sleep due to wheezing and gasping for air. He has a history of environmental allergies, including dander and certain trees. He has undergone allergy testing and has been hospitalized multiple times for asthma, both in [place] and [place]. He has never smoked. He uses Breztri (2 puffs twice daily) and Airsupra as needed, along with a nebulizer. He was previously on daytime oxygen therapy in [place] and used a sleep apnea mask at night. His doctor recommended portable oxygen therapy. He has a pacemaker and congestive heart failure and is under the care of a financial market dealer. SOCIAL HISTORY Tobacco: The patient does not smoke. ROS: I performed a complete 12 system review which was negative except for what is mentioned in the history of present illness PHYSICAL EXAMBP 149/90 (Side: Left Arm, Position: SITTING, Cuff Size: Large Adult) | Pulse 75 | Temp 97.4 ?F (36.3 ?C) (Oral) | Resp 16 | Ht 5' 2" (1.575 m) | Wt 289 lb (131.1 kg) | SpO2 97% | BMI 52.86 kg/m? General Appearance: No distress HEENT: Normal oral mucosa, normal oral pharynx Neck: Supple, midline trachea Chest: Normal respiratory effort Lungs: Clear to auscultation bilaterally. No wheezes or crackles Cardiovascular: Regular rhythm with no gallops, mumurs, rubs. Normal peripheral pulses Abdomen: No distention, tenderness or guarding Musculoskeletal/Extremities: No edema, no clubbing Neurological: Alert & oriented x3. No gross focal deficit Assessment & Plan1. Asthma, severe persistent, poorly controlled - Goals of treatment and stepwise approach were discussed - Continue Breztri 2 puffs twice a day and Airsupra as needed. - I gave her prednisone for 5 days, additional 5-day course was provided for future use - 6-minute walk test showed no oxygen desaturation - Check CBC with differential, IgE, RAST panel - May eventually need Biologics - Short-term follow-up in 6 to 8 weeks 3. Obstructive sleep Apnea.Currently using a CPAP machine. She will bring the machine on her next visit Follow-upA follow-up visit is scheduled in 6 weeks. Segundo Barnes MD Pulmonary and Critical Care Medicine Immunization HistoryAdministered Date(s) Administered Pneumococcal Vaccine, Polysaccharide 03/17/2021 Past Medical History[1]No past surgical history on file. Social History[2] Family History[3] Allergies[4] Social History Socioeconomic HistoryMarital status: Spouse name: Not on file Number of children: Not on file Years of education: Not on file Highest education level: Not on file Occupational History Not on file Tobacco Use Smoking status: Never Smokeless tobacco: Never Substance and Sexual Activity Alcohol use: Yes Comment: only on occassion Drug use: Never Sexual activity: Not on file Other Topics Concern Not on file Social History Narrative Not on file Social Drivers of Health Financial Resource Strain: Not on fileFood Insecurity: Food Insecurity Present (04/06/2023) Received from [facility] Hunger Vital Sign Within the past 12 months, you worried that your food would run out before you got the money to buy more.: Sometimes true Within the past 12 months, the food you bought just didn't last and you didn't have money to get more.: Often true Transportation Needs: No Transportation Needs (04/06/2023) Received from [facility] PRAPARE - Transportation Lack of Transportation (Medical): No Lack of Transportation (Non-Medical): No Physical Activity: Not on file Stress: Not on file Social Connections: Not on file Intimate Partner Violence: Not on file Housing Stability: High Risk (04/06/2023) Received from [facility] Housing Stability Vital Sign Unable to Pay for Housing in the Last Year: Yes Number of Places Lived in the Last Year: 1 Unstable Housing in the Last Year: No Current Medications[5] Investigations PFT No data to display LAST CXR No results found for this or any previous visit. LAST CT SCANNo results found for this or any previous visit. No results found for this or any previous visit. No results found for this or any previous visit. LABS Latest Ref Rng & Units :59 AM 07/27/2024 11:23 AM ILD / ASTHMA PANEL Hemoglobin 11.1 - 15.9 g/dL 13.7 MCV 79.0 - 97.0 fL 85.4 Platelets 150 - 450 10*3/uL 337 WBC 3.6 - 12.5 10*3/uL 5.5 Neutrophils Not estab. % 65 Lymphs Not estab. % 25 EOS Not estab. % 2.4 Protein 6.0 - 8.5 g/dL 7.7 Total Bili 0.0 - 1.2 mg/dL <0.2 AST 0 - 40 IU/L 22 ALT 0 - 32 IU/L 22 Alk Phosph 44 - 121 IU/L 114 BUN 6 - 24 mg/dL 15 13 Creatinine 0.57 - 1.00 mg/dL 1.01 1.06 Calcium 8.7 - 10.2 mg/dL 9.8 9.5 A1C 4.8 - 5.6 % 7.9 No data to display ResultsLabs - Complete Blood Count: 07/2024, Slightly elevated cells associated with asthma and allergic reactions Imaging- Chest CT: 02/07/2022, Normal lung tissue with no nodules Diagnostic Testing- Sleep Study: 2022, 133 events per hour [1] Past Medical History: Diagnosis Date Asthma (HHS-HCC) CHF (congestive heart failure) (multi HCC) Chronic back pain Chronic respiratory failure with hypoxia (multi HCC) DM neuropathy, 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 (multi HCC) Fibromyalgia History of hysterectomy History of urinary retention HTN (hypertension) Hypothyroidism (acquired) Idiopathic intracranial hypertension Migraine NOEL on CPAP Pacemaker [2] Social History Tobacco Use Smoking status: Never Smokeless tobacco: Never Substance Use Topics Alcohol use: Yes Comment: only on occassion Drug use: Never [3] Family History Problem Relation Name Age of Onset Diabetes Mellitus Mother pily massey Hypertension Mother pily massey Stroke Mother pily massey Dementia Mother pily massey Alzheimers disease Mother pily massey Congestive Heart Failure Father Nicola Massey Diabetes Mellitus Father Nicola Massey Congestive Heart Failure Sister Nora Massey Stroke Sister Nora Massey Hypertension Sister Nora Massey Asthma Sister Nora Massey Congestive Heart Failure Brother nicola massey Congestive Heart Failure Brother Zechariah Massey [4] Allergies Allergen Reactions Azilsartan-Chlorthalidone Swelling Swelling of throat Compazine Anaphylaxis, Hives and Itching Prochlorperazine Edisylate Anaphylaxis and Swelling Throat swelling Iodine Swelling [5] Current Outpatient Medications Medication Sig Dispense Refill ACETAMINOPHEN-BUTALBITAL 50-325 MG oral Tablet one Q 6 hours PRN pain, do not combine with narcotics, benzodiazepines, or actaminophen containing compounds, do not drive. 20 tablet 2 Albuterol-Budesonide (AIRSUPRA IN) Inhale into the lungs. Amlodipine Besylate (Norvasc) 10 MG oral Tablet Take 1 tablet (10 mg total) by mouth daily. 90 tablet 1 Atorvastatin Calcium 40 MG oral Tablet Take 1 tablet (40 mg total) by mouth nightly. 100 tablet 3 Ngpazgl-Qxdyxqexovk-Iceyevnvee (Breztri Aerosphere) 160-9-4.8 MCG/ACT inhalation Aerosol Inhale into the lungs. busPIRone HCl 5 MG oral Tablet Take 1 tablet (5 mg total) by mouth 3 times daily as needed (anxiety). 90 tablet 1 Carvedilol 25 MG oral Tablet Take 1 tablet (25 mg total) by mouth in the morning and 1 tablet (25 mg total) in the evening. Take with meals. 180 tablet 3 Cyanocobalamin (Vitamin B-12) 1000 MCG oral Tablet Take 1 tablet (1,000 mcg total) by mouth daily. Diclofenac Sodium 75 MG oral Tablet Delayed Response Take 1 tablet (75 mg total) by mouth 2 times daily as needed. Duloxetine HCl [address] Particles Take 1 capsule (60 mg total) by mouth daily. 30 capsule 6 Empagliflozin 10 MG oral Tablet Take 1 tablet (10 mg total) by mouth daily. 90 tablet 3 Fingerstix Lancets does not apply Misc 1 each by other route daily. Furosemide 40 MG oral Tablet Take 1 tablet (40 mg total) by mouth 2 times daily. 60 tablet 2 Gabapentin 400 MG oral Capsule Take 1 capsule (400 mg total) by mouth 3 times daily. 270 capsule 1 Galcanezumab-gnlm (Emgality) 120 MG/ML subcutaneous Solution Auto-injector injection Loading dose: Inject 2 pens (240 mg) under the skin for one dose then inject one pen once a month thereafter for maintenance. 2 mL 0 Galcanezumab-gnlm (Emgality) 120 MG/ML subcutaneous Solution Auto-injector injection Inject 1 mL (120 mg total) into the skin once a month. 3 mL 0 GARLIC OR Take by mouth. glipiZIDE 5 MG oral Tablet Take 1 tablet (5 mg total) by mouth daily (before a meal). 30 tablet 3 Hydrocort-Pramoxine, Perianal, 1-1 % apply externally Foam Apply 1 Application topically 3 times daily as needed (hemorrhoids). 10 g 2 Isosorbide Mononitrate CR 30 MG oral TABLET SR 24 HR Take 1 tablet (30 mg total) by mouth every morning. Levothyroxine Sodium 50 MCG oral Tablet Take 1 tablet (50 mcg total) by mouth daily. 90 tablet 3 linaCLOtide 145 MCG oral Capsule Take 1 capsule (145 mcg total) by mouth daily. 90 capsule 1 Metformin HCl 500 MG oral Tablet Take 1 tablet (500 mg total) by mouth in the morning and 1 tablet (500 mg total) in the evening. Take with meals. Ondansetron (ZOFRAN) 8 MG oral TABLET DISPERSIBLE DISSOLVE 1 TABLET IN MOUTH EVERY 8 HOURS OZEMPIC (0.25 or 0.5 mg/dose) 2 mg/3 mL SQ Solution Pen-Injector Inject 0.25 mg into the skin once a week. 3 mL 2 Pantoprazole Sodium 40 MG oral Tablet Delayed Response Take 1 tablet (40 mg total) by mouth daily. 90 tablet 1 predniSONE (DELTASONE) 20 MG oral tablet Take 2 tablets (40 mg total) by mouth daily for 10 days. 20 tablet 0 No current facility-administered medications for this visit. [facility]Mur[facility] [id number] 17:03:51Upcoming Encounters Scheduled Orders Name Type Priority Associated Diagnoses Orde r Schedule ALLERGENS, ZONE 6 Lab Routine Severe per sistent asthma without complication (multi HCC) Expected: 10/22/2024 (Approximate), Expires: 01/20/2025 IMMUNOGLOBULIN E, TOTAL Lab Routine Jacqueline re persistent asthma without complication (multi HCC) Expected: 10/22/2024 (Approximate), Expires: 01/20/2025 CBC WITH DIFFERENTIAL Lab Routine Severe persistent asthma without complication (multi HCC) Expected: 10/22/2024 (Approximate), Expires: 01/20/2025 PULMONARY STRESS TESTING Procedures Routine Chr onic respiratory failure with hypoxia (multi HCC) Ordered: 10/22/2024 ECG- ADULT Cardiology STAT Chest pain, unspecified type Expected: 10/22/2024, Expires: 04/21/2025 Health Maintenance Due Date Last Done Comments COLONOSCOPY 1978 CT Colonography 1978 Cologuard 1978 Colorectal Cancer Screening 1978 FIT Tests 1978 Sigmoidoscopy 1978 Diabetes: Retinopathy Screening 1996 Tdap Vaccines 1997 PAP SMEAR WITH HPV 2008 Physical Exam 2018 Pneumococcal Vaccine: Pediat rics (0 to 5 Years) and At-Risk Patients (6 to 64 Years) (2 of 2 - PCV) 03/17/2022 03/17/2021 COVID-19 Vaccine ( - season) 2024 Influenza Vaccines (#1) 2024 Diabetes: Hemoglobin A1C 10/27/2024 07/27/2024 Mammogram 02/10/2025 02/10/2023 Diabetes: Urine Protein Screening 07/27/2025 025 Lipid Panel 07/27/2025 07/27/2024 Creatinine Level (Kidney Function Test) 09/25/2025 0 09/25/2024, 07/27/2024 RSV Vaccines (1 - 1-dose 75+ series) 2053 [facility]2025-09-08 17:03:51 Diagnosis NOEL (obstructive sleep apnea) - Primary Obstructive sleep apnea (adult) (pediatric) Severe persistent asthma wit hout complication (multi HCC) Chronic respiratory failure with hypoxia (multi HCC) Chronic respiratory failure Chest pain, unspecified type [facility]2025-09-08 17:03:51 [place] [id number] 15:26:26 PPO ordered. Patient completed first part and received 4 puffs MDI of albuterol - patient c/o squeezing chest pain 08/23, non radiating. Last time her BP was high (at home) checked BP 142/90, HR 73, 98% and repeat was 134/84, 62 HR Patient has HTN - took BP meds this AM. Discussed with MD - ordered EKG. Completed. Patient states her chest pain has resolved. Completed PPO. MD reviewed EKG and PPO. Patient cleared to leave. [facility]2025-09-08 15:25:32 6 minute walk completed. Pre O2 sat = 96% Dyspnea on Kristyn scale = 0 Fatigue on Kristyn scale = 5 Post O2 sat = 99% Dyspnea on Kristyn scale = 10 Fatigue on Kristyn scale = 10 First 6 minute walk test? Yes Supplemental oxygen during test? No, Stopped before 6 minutes? No - Paused during test? No - 6 MWT results - 277 meters. Did patient experience any pain of discomfort during test? No Other symptoms at end of test: No Angina, No Dizziness, No Hip pain, No Calf pain, No Leg pain. T [facility]2025-09-08 14:18:19 Chief Complaint Patient presents with Consultation NOEL/CPAP, asthma, chronic respiratory failure with hypoxia. Radha Wilhelm LVN Radha Wilhelm MeghaN[facility] BrooklynazMur[facility] [id number] 11:35:14* Consultation (Routine) - Authorized Specialty Diagnoses / Procedures Referred By Jammie leonardo Referred To Contact Internal Medicine-Gastroenterol ogy Diagnoses Rectal bleeding Screen for colon cancer Chronic constipation Hemorrhoids, unspecified hemorrhoid type Procedures OFFICE/OUTPATIENT [facility] 60 MINUTES Alexander Espitia DO [address] [place] [address] Phone: tel: fax: Rupesh Oh MD [address] [place] [address] Phone: tel: fax: Referral ID Status Reason Start Date Expiration Date Visits Requested Visits Authorized [id number] Authorized Provider Preference 09/18/2024 12/17/2024 1 1 [facility]2025-08-05 11:35:14* [facility]2025-08-05 11:35:14* Patient Instructions* Alexander Espitia DO - 09/18/2024 11:35 AM CDT 1. Type 2 Diabetes Mellitus. - Currently taking metformin 500 mg twice a day and Jardiance 10 mg daily. - Refill Ozempic 0.25 mg subcu weekly. This will be sent to a different pharmacy. Apparently was on backorder at [facility]. - A1c was 7.9 on 07/27/2024; expected to improve once Ozempic is started. Recheck A1c in 3 months. 2. Mixed Hyperlipidemia. - Taking atorvastatin 40 mg daily. 3. Chronic Systolic Congestive Heart Failure. - Reports fluid retention and swelling in hands and feet, especially at night. - Increase Lasix to 40 mg twice daily. Recheck lab in 1 week. - Blood work will be repeated in a week to monitor kidney function. - Advised to limit fluid intake to <1.5 L/day and monitor weight daily. Nurse visit in 1 week to reassess and monitor. - Will send a message to cardiology. 4. Hypertension. - Taking amlodipine 10 mg and carvedilol 25 mg twice a day. - Blood pressure at home is around 150-160/103-112. - Nurse visit in 1 week to reassess blood pressure. If no improvement patient may require additional medication. - Prescription for carvedilol 25 mg will be sent to [facility] in [place]. 5. Pacemaker with History of Sick Sinus Syndrome. - Cardiology sent referral to certified dialysis technician to further evaluate and address. - No immediate concerns noted. 6. Chronic Respiratory Failure with Hypoxia. - Using Airsupra as needed and Breztri. - Patient to establish care with pulmonology soon. Await recommendations. 7. Hypothyroidism. - Compliance with medication addressed in detail. Continue levothyroxine 50 mcg daily. Prescription sent to pharmacy. 8. Idiopathic Intracranial Hypertension. - Previously on acetazolamide, switched to Lasix by financial market dealer. - Message will be sent to neurologist regarding referral to neurosurgeon for potential shunt placement. - Continue monitoring symptoms and follow-up with neurologist. 9. Migraines. - Taking duloxetine 60 mg daily as prescribed by neurologist. - Message will be sent to neurologist to change Emgality injection to [facility]. - Continue current duloxetine regimen. 10. Moderate Asthma. - Using Airsupra as needed and Breztri. - Patient to establish care with pulmonology to further evaluate and address 11. Obstructive Sleep Apnea. - Using CPAP for sleep apnea. - Patient to establish care with pulmonology to further evaluate and address. 12. Morbid Obesity. - Weight today is 291 lbs, highest recorded weight was 297 lbs last month. - Advised to limit fluid intake to <1.5 L/day and monitor weight daily. - Continue monitoring weight and fluid intake. 13. Rectal Bleeding. - Referral to local GI doctor for further evaluation and potential colonoscopy. - Proctofoam prescribed for hemorrhoids, to be used up to three times a day. 14. Chronic Constipation. - Taking Linzess 145 mcg daily for chronic constipation. - Send to GI to further evaluate. 15. Hemorrhoids. - Proctofoam prescribed for hemorrhoids, to be used up to three times a day. - Referral to GI specialist for further evaluation. * Attachments The following attachments cannot be sent through Care Everywhere. * Adult Advisor: Hemorrhoids (Ivorian) * Adult Advisor: Constipation (Ivorian) [facility]2025-08-05 11:35:14* Alexander Espitia DO - 09/18/2024 10:15 AM CDT Patient and patient’s participants in attendance, if any, consented to the use of [employer] a new technology product that uses artificial intelligence to assist the provider to document the patient encounter and to record this visit. Chief Complaint Routine Follow-up (Patient is present to follow up on multiple appointments she has been to./Patient would like to address her Lasix, Patient is having blood after a bowel movement.) History of Present Illness Makeda Bach is a(n) 44 year old female with a past medical history as documented below who presents today for evaluation of Routine Follow-up (Patient is present to follow up on multiple appointments she has been to./Patient would like to address her Lasix, Patient is having blood after a bowel movement.) . History of Present IllnessThe patient presents for follow-up of multiple issues including idiopathic intracranial hypertension, diabetes, hypertension, hypothyroidism, hemorrhoids, and constipation. She has been under the care of a neurologist for chronic headaches, idiopathic intracranial hypertension, and migraines. A neurosurgical evaluation was suggested due to elevated pressures, but no appointment has been scheduled yet. She was previously on acetazolamide, which was discontinued by her financial market dealer and replaced with Lasix. Despite this change, she continues to experience fluid retention, shortness of breath during conversation, and swelling in her hands and feet, particularly at night. The swelling is severe enough to impede her ability to walk. She recalls a previous episode of kidney failure when she was on an 80 mg dose of Lasix. She is currently on a cardiac diet and has noticed a sudden weight gain of over 5 pounds. She is on Lasix 40 mg daily. For diabetes management, she is on metformin 500 mg twice daily and [id number] mg. She was unable to tolerate Trulicity and is awaiting approval for Ozempic. She is also taking glipizide 5 mg daily. Her blood pressure medication was recently adjusted, with an increase in carvedilol from 12.5 mg to 25 mg twice daily. However, her home readings remain high, around 150-160/103-112. She has not been taking her thyroid medication for the past few days. She has hypothyroidism. Medication updated. She has been experiencing rectal bleeding during bowel movements, which started recently. She noticed significant blood when wiping after a bowel movement on 09/16/2024. She does not have a history of hemorrhoids and has never undergone a colonoscopy. The rectal bleeding is intermittent. She has been prescribed Linzess 145 mcg for chronic constipation, which she attributes to lazy bowels. She occasionally experiences severe impaction, which can be very uncomfortable and painful. This discomfort has been present for about a week. She has history of chronic constipation. Currently on Linzess. She is taking atorvastatin 40 mg for cholesterol, Airsupra as needed for breathing, buspirone 5 mg twice daily for anxiety, B12 supplement 1000 mcg daily, diclofenac for headaches and pain, duloxetine 60 mg added by the neurologist, and isosorbide mononitrate 30 mg daily. She is not taking the stool softener. She uses CPAP for sleep apnea. She saw the architectural model maker for fibromyalgia and received a trigger point injection which made her sore. She saw the pacemaker specialist because of her pacemaker and her history of sick sinus syndrome. Social History:Diet: Cardiac diet PAST SURGICAL HISTORY:Pacemaker insertion for sick sinus syndrome Lab 07/27/2024: CBC within normal range. Microcytic indices noted. Creatinine 1.06, GFR 66. Potassium 5.3. Liver function test unremarkable. Total cholesterol 188, triglycerides 150, HDL 30, LDL 131. Hemoglobin A1c 7.9. TSH and free T4 within normal range. Urine microalbumin/creatinine ratio elevated at 133. Urinalysis some calcium oxalate crystals Neurology note 08/30/2024:Impression: ICD-10-CM1. Chronic daily headache R51.9 2. Elevated intracranial pressure G93.2 3. Cardiac pacemaker in situ Z95.0 4. Leg weakness, bilateral R29.898 5. Type 2 diabetes mellitus with other specified complication, without long-term current use of insulin (*) E11.69 6. Chronic midline low back pain, unspecified whether sciatica present M54.50 G89.29 7. Hypertensive heart disease without heart failure I11.9 8. Somatization disorder F45.0 Plan:43-year-old female with chronic intractable headaches, refractory to years of various migraine preventative strategies. She has now undergone lumbar puncture with elevated opening pressure. No significant improvement of her headaches following LP. Will request neurosurgical consultation for consideration of shunt. Start Diamox, stop zonisamide. 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 -add vit D to upcoming lab draw -Rx duloxetine 60mg/d -continue gabapentin -Toradol 30mg IM -RTC 3 months/PRN Thanks for asking me to help care for this nice lady. Please call with questions/concerns. Cardiology note 08/15/2024: ReviewedAcute on chronic CHF -2019 TTE on [facility] with Normal EF -Has LE edema and abdominal swelling c/f volume overload. Pt has had 2 hospitalization for volume overload in the past 6-8 months and remains at risk for recurrent hospitalization -Will check TTE -Not on diuretics - appears volume overloaded. Start lasix 40mg daily -BMP and BNP in 2 weeks - may need to stop lasix and do hctz or chlorthalidone if BNP low and bp high -Start Jardiance 10mg daily HTN-BP 144/83 today. High at home. Taking amlodipine 10mg and carvedilol 12.5mg BID -Increase carvedilol 12.5 -> 25mg BID SSS s/p PPM-Will refer to pacemaker clinic ObesityDM2 Poorly controlled - A1c 8. Follows with PCP Tried trulicity in the past and had bad GI side effects. Discussed trying alternative like Ozempic. Pt willing to try. Will keep it at lowest dose Lifestyle modification including increased exercise for 15-20 minutes 5-7 times weekly, heart healthy mediterranean style diet (high in fish, unsaturated fat, vegetables, low in simple sugars, carbohydrates, and red meat), weight loss. HLD-Increase atorvastatin 20 -> 40mg daily Current Medications Current Medications[1] Past Medical History Past Medical History[2] Past Surgical History No past surgical history on file. Family Medical History Family History[3] Social History Social History[4] Review of Systems Review of Systems Physical Exam BP 142/90 (Side: Right Arm, Position: SITTING, Cuff Size: Large Adult) | Pulse 111 | Temp 98.5 ?F (36.9 ?C) (Tympanic) | Resp 20 | Ht 5' 2" (1.575 m) | Wt 291 lb 12.8 oz (132.4 kg) | SpO2 95% | BMI 53.37 kg/m? General: Alert, Conversant, cooperative, oriented x3.HEENT: Head atraumatic. Extraocular movements intact. Ears atraumatic. Nares patent. Oropharynx moist. Dentition appears normal. Neck: Supple. No thyromegaly. Heart: Regular rate and rhythm. No murmurs. Lungs: Clear to auscultation bilateral. Abdomen: Soft, nontender, nondistended. Rectal exam: No rectal bleeding noted. Hemorrhoid noted externally. Extremities: Good range of motion to all extremities. No focal deficits. Skin: Normal skin turgor. Skin appears dry. Nonpitting edema to the lower extremity noted Neuro: No focal deficits. Mental: Patient appears in good mood. Intact judgement and insight. Patient interactive and appropriate. Assessment and Plan 1. Chronic systolic congestive heart failure (multi HCC)- Furosemide 40 MG oral Tablet; Take 1 tablet (40 mg total) by mouth 2 times daily. Dispense: 60 tablet; Refill: 2 - Carvedilol 25 MG oral Tablet; Take 1 tablet (25 mg total) by mouth in the morning and 1 tablet (25 mg total) in the evening. Take with meals. Dispense: 180 tablet; Refill: 3 2. Primary hypertension- Carvedilol 25 MG oral Tablet; Take 1 tablet (25 mg total) by mouth in the morning and 1 tablet (25 mg total) in the evening. Take with meals. Dispense: 180 tablet; Refill: 3 3. Pacemaker 4. Chronic respiratory failure with hypoxia (multi HCC) 5. DM type 2 with diabetic mixed hyperlipidemia (multi HCC)- OZEMPIC (0.25 or 0.5 mg/dose) 2 mg/3 mL SQ Solution Pen-Injector; Inject 0.25 mg into the skin once a week. Dispense: 3 mL; Refill: 2 6. Family history of early CAD 7. Hypothyroidism (acquired)- Levothyroxine Sodium 50 MCG oral Tablet; Take 1 tablet (50 mcg total) by mouth daily. Dispense: 90 tablet; Refill: 3 8. Idiopathic intracranial hypertension 9. Other migraine without status migrainosus, not intractable 10. Moderate persistent asthma without complication ([facility]) 11. NOEL on CPAP 12. Morbid obesity ([facility]) 13. Rectal bleeding- REFERRAL TO GASTROENTEROLOGY- EXTERNAL 14. Screen for colon cancer- REFERRAL TO GASTROENTEROLOGY- EXTERNAL 15. Chronic constipation- REFERRAL TO GASTROENTEROLOGY- EXTERNAL - linaCLOtide 145 MCG oral Capsule; Take 1 capsule (145 mcg total) by mouth daily. 16. Hemorrhoids, unspecified hemorrhoid type- REFERRAL TO GASTROENTEROLOGY- EXTERNAL - Hydrocort-Pramoxine, Perianal, 1-1 % apply externally Foam; Apply 1 Application topically 3 times daily as needed (hemorrhoids). Dispense: 10 g; Refill: 2 17. History of sick sinus syndrome Assessment & Plan 1. Type 2 Diabetes Mellitus. - Currently taking metformin 500 mg twice a day and Jardiance 10 mg daily. - Refill Ozempic 0.25 mg subcu weekly. This will be sent to a different pharmacy. Apparently was on backorder at [facility]. - A1c was 7.9 on 07/27/2024; expected to improve once Ozempic is started. Recheck A1c in 3 months. 2. Mixed Hyperlipidemia.- Taking atorvastatin 40 mg daily. 3. Chronic Systolic Congestive Heart Failure.- Reports fluid retention and swelling in hands and feet, especially at night. - Increase Lasix to 40 mg twice daily. Recheck lab in 1 week. - Blood work will be repeated in a week to monitor kidney function. - Advised to limit fluid intake to <1.5 L/day and monitor weight daily. Nurse visit in 1 week to reassess and monitor. - Will send a message to cardiology. 4. Hypertension.- Taking amlodipine 10 mg and carvedilol 25 mg twice a day. - Blood pressure at home is around 150-160/103-112. - Nurse visit in 1 week to reassess blood pressure. If no improvement patient may require additional medication. - Prescription for carvedilol 25 mg will be sent to [facility] in [place]. 5. Pacemaker with History of Sick Sinus Syndrome.- Cardiology sent referral to certified dialysis technician to further evaluate and address. - No immediate concerns noted. 6. Chronic Respiratory Failure with Hypoxia.- Using Airsupra as needed and Breztri. - Patient to establish care with pulmonology soon. Await recommendations. 7. Hypothyroidism.- Compliance with medication addressed in detail. Continue levothyroxine 50 mcg daily. Prescription sent to pharmacy. 8. Idiopathic Intracranial Hypertension.- Previously on acetazolamide, switched to Lasix by financial market dealer. - Message will be sent to neurologist regarding referral to neurosurgeon for potential shunt placement. - Continue monitoring symptoms and follow-up with neurologist. 9. Migraines.- Taking duloxetine 60 mg daily as prescribed by neurologist. - Message will be sent to neurologist to change Emgality injection to [facility]. - Continue current duloxetine regimen. 10. Moderate Asthma.- Using Airsupra as needed and Breztri. - Patient to establish care with pulmonology to further evaluate and address 11. Obstructive Sleep Apnea.- Using CPAP for sleep apnea. - Patient to establish care with pulmonology to further evaluate and address. 12. Morbid Obesity.- Weight today is 291 lbs, highest recorded weight was 297 lbs last month. - Advised to limit fluid intake to <1.5 L/day and monitor weight daily. - Continue monitoring weight and fluid intake. 13. Rectal Bleeding.- Referral to local GI doctor for further evaluation and potential colonoscopy. - Proctofoam prescribed for hemorrhoids, to be used up to three times a day. 14. Chronic Constipation.- Taking Linzess 145 mcg daily for chronic constipation. - Send to GI to further evaluate. 15. Hemorrhoids.- Proctofoam prescribed for hemorrhoids, to be used up to three times a day. - Referral to GI specialist for further evaluation. Follow-up: The patient will follow up in 4 to 5 weeks. Nurse visit in 1 week to confirm medications and to readdress blood pressure and CHF Questions answered. Instructions/handouts given. Risks and benefits of any prescription medicines, including any side effects, addressed in detail with the patient. Patient understands and agrees with plan of care. Follow-Up Return in about 5 weeks (around 10/23/2024) for Multiple issues; Nurse visit one week to review medication and BP. ALEXANDER ESPITIA DO [1]Current Outpatient Medications Medication Sig Dispense Refill ACETAMINOPHEN-BUTALBITAL 50-325 MG oral Tablet one Q 6 hours PRN pain, do not combine with narcotics, benzodiazepines, or actaminophen containing compounds, do not drive. 20 tablet 2 Amlodipine Besylate (Norvasc) 10 MG oral Tablet Take 1 tablet (10 mg total) by mouth daily. 90 tablet 1 Atorvastatin Calcium 40 MG oral Tablet Take 1 tablet (40 mg total) by mouth nightly. 100 tablet 3 busPIRone HCl 5 MG oral Tablet Take 1 tablet (5 mg total) by mouth 2 times daily. Carvedilol 25 MG oral Tablet Take 1 tablet (25 mg total) by mouth in the morning and 1 tablet (25 mg total) in the evening. Take with meals. 180 tablet 3 Cyanocobalamin (Vitamin B-12) 1000 MCG oral Tablet Take 1 tablet (1,000 mcg total) by mouth daily. Diclofenac Sodium 75 MG oral Tablet Delayed Response Take 1 tablet (75 mg total) by mouth 2 times daily as needed. Empagliflozin 10 MG oral Tablet Take 1 tablet (10 mg total) by mouth daily. 90 tablet 3 Furosemide 40 MG oral Tablet Take 1 tablet (40 mg total) by mouth 2 times daily. 60 tablet 2 Gabapentin 400 MG oral Capsule Take 1 capsule (400 mg total) by mouth 3 times daily. 270 capsule 1 GARLIC OR Take by mouth. glipiZIDE 5 MG oral Tablet Take 1 tablet (5 mg total) by mouth daily (before a meal). 30 tablet 3 Hydrocort-Pramoxine, Perianal, 1-1 % apply externally Foam Apply 1 Application topically 3 times daily as needed (hemorrhoids). 10 g 2 Isosorbide Mononitrate CR 30 MG oral TABLET SR 24 HR Take 1 tablet (30 mg total) by mouth every morning. Levothyroxine Sodium 50 MCG oral Tablet Take 1 tablet (50 mcg total) by mouth daily. 90 tablet 3 linaCLOtide 145 MCG oral Capsule Take 1 capsule (145 mcg total) by mouth daily. Metformin HCl 500 MG oral Tablet Take 1 tablet (500 mg total) by mouth in the morning and 1 tablet (500 mg total) in the evening. Take with meals. OZEMPIC (0.25 or 0.5 mg/dose) 2 mg/3 mL SQ Solution Pen-Injector Inject 0.25 mg into the skin once a week. 3 mL 2 Pantoprazole Sodium 40 MG oral Tablet Delayed Response Take 1 tablet (40 mg total) by mouth daily. 90 tablet 1 Albuterol-Budesonide (AIRSUPRA IN) Inhale into the lungs. Zotfehs-Ubtdywunmyy-Ippmwrtynw (Breztri Aerosphere) 160-9-4.8 MCG/ACT inhalation Aerosol Inhale into the lungs. Duloxetine HCl [address] Particles Take 1 capsule (60 mg total) by mouth daily. 30 capsule 6 Fingerstix Lancets does not apply Misc 1 each by other route daily. Galcanezumab-gnlm (Emgality) 120 MG/ML subcutaneous Solution Auto-injector injection Loading dose: Inject 2 pens (240 mg) under the skin for one dose then inject one pen once a month thereafter for maintenance. (Patient not taking: Reported on 09/18/2024.) 2 mL 0 Galcanezumab-gnlm (Emgality) 120 MG/ML subcutaneous Solution Auto-injector injection Inject 1 mL (120 mg total) into the skin once a month. (Patient not taking: Reported on 09/18/2024.) 3 mL 0 Ondansetron (ZOFRAN) 8 MG oral TABLET DISPERSIBLE DISSOLVE 1 TABLET IN MOUTH EVERY 8 HOURS No current facility-administered medications for this visit.[2] Past Medical History: Diagnosis Date Asthma ([facility]) CHF (congestive heart failure) (multi HCC) Chronic back pain Chronic respiratory failure with hypoxia (multi HCC) DM neuropathy, 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 (multi HCC) Fibromyalgia History of hysterectomy History of urinary retention HTN (hypertension) Hypothyroidism (acquired) Idiopathic intracranial hypertension Migraine NOEL on CPAP Pacemaker [3] Family History Problem Relation Name Age of Onset Diabetes Mellitus Mother pily massey Hypertension Mother pily massey Stroke Mother pily massey Dementia Mother pily massey Alzheimers disease Mother pily massey Congestive Heart Failure Father Nicola Massey Diabetes Mellitus Father Nicola Massey Congestive Heart Failure Sister Nora Massey Stroke Sister Nora Massey Hypertension Sister Nora Massey Asthma Sister Nora Massey Congestive Heart Failure Brother nicola massey Congestive Heart Failure Brother Zechariah Massey [4] Social History Socioeconomic History Marital status: Tobacco Use Smoking status: Never Smokeless tobacco: Never Substance and Sexual Activity Alcohol use: Yes Comment: only on occassion Drug use: Never Social Drivers of Health Food Insecurity: Food Insecurity Present (04/06/2023)Received from [facility] Hunger Vital Sign Worried About Running Out of Food in the Last Year: Sometimes true Ran Out of Food in the Last Year: Often true Transportation Needs: No Transportation Needs (04/06/2023) Received from [facility] - Transportation Lack of Transportation (Medical): No Lack of Transportation (Non-Medical): No Housing Stability: High Risk (04/06/2023) Received from [facility] Housing Stability Vital Sign Unable to Pay for Housing in the Last Year: Yes Number of Places Lived in the Last Year: 1 Unstable Housing in the Last Year: No [facility]2025-08-05 11:35:14Upcoming Encounters Scheduled Referrals Name Type Priority Associated Diagnoses Orde r Schedule REFERRAL TO GASTROENTEROLOGY- EXTERNAL Referral Routine Rectal bleeding Screen for colon cancer Chronic constipation Hemorrhoids, unspecified hemorrhoid type Ordered: 09/18/2024 Health Maintenance Due Date Last Done Comments COLONOSCOPY 1978 CT Colonography 1978 Cologuard 1980 Colorectal Cancer Screening 1980 FIT Tests 1980 Sigmoidoscopy 1980 Diabetes: Retinopathy Screening 1996 Tdap Vaccines 1997 PAP SMEAR WITH HPV 2008 Physical Exam 2018 Pneumococcal Vaccine: Pediat rics (0 to 5 Years) and At-Risk Patients (6 to 64 Years) (2 of 2 - PCV) 03/17/2022 03/17/2021 COVID-19 Vaccine ( season) 2023 Influenza Vaccines (#1) 2024 Diabetes: Hemoglobin A1C 10/27/2024 07/27/2024 Mammogram 02/10/2025 02/10/2023 Creatinine Level (Kidney Function Test) 07/27/2025 0 07/27/2024 Diabetes: Urine Protein Screening 07/27/2025 025 Lipid Panel 07/27/2025 07/27/2024 RSV Vaccines (1 - 1-dose 75+ series) 2053 [facility] [id number] 11:35:14 Diagnosis DM type 2 with diabetic mixed hyperlipidemia (multi HCC) - Primary Type II or unspecified type diabetes mellitus with other specified manifestations, not stated as uncontrolled Chronic systolic congestive heart failure (multi HCC) Chronic systolic heart failure Primary hypertension Unspecified essential hypertension Pacemaker Cardiac pacemaker in situ Chronic respiratory failure with hypoxia (multi HCC) Chronic respiratory failure Family history of early CAD Family history of ischemic heart disease Hypothyroidism (acquired) Unspecified hypothyroidism Idiopathic intracranial hypertension Benign intracranial hypertension Other migraine without statu s migrainosus, not intractable Moderate persistent asthma without complication ([facility]-HCC) Unspecified asthma NOEL on CPAP Obstructive sleep apnea (adult) (pediatric) Morbid obesity (CMS-HCC) Morbid obesity Rectal bleeding Hemorrhage of rectum and anus Screen for colon cancer Special screening for malignant neoplasms, colon Chronic constipation Unspecified constipation Hemorrhoids, unspecified hem orrhoid type History of sick sinus syndrome Personal history of other diseases of circulatory system [facility] CenterUoenoh3674-25-16 11:35:14 [facility] [place] [id number] 10:27:21 Chief Complaint Patient presents with Routine Follow-up Patient is present to follow up on multiple appointments she has been to. Patient would like to address her Lasix, Patient is having blood after a bowel movement. Raffy Chen MA [facility] CenterTtalcq5399-26-31 11:38:37 Chief Complaint Patient presents with Follow-up OTHER Nonintractable paroxysmal hemicrania, unspecified chronicity pattern TPI Height 5'2 per pt Arturo East MA [facility] [id number] 10:50:43 Chief Complaint Patient presents with Consultation Patient has been referred by due to Idiopathic intracranial HTN and Migraine. Caity Good MA T [facility] CenterSwukdl0728-30-18 13:03:31 Chief Complaint Patient presents with Consultation Joint pain fibromyalgia Alondra Brandon MA [facility]2025-06-24 08:05:34 Chief Complaint Patient presents with OTHER Patient is present to follow up on labs Raffy Chen MA [facility]2024-09-12 18:27:00 Patient given printed and verbal discharge [...] in possession of all belongings. Celina Mcdermott [id number] 13:16:40 Makeda Bach is a 43 year [...] Pt to room for eval Brooklynn Baird [facility]Cadmiu2264-78-54 17:11:43 Patient discharged with steady gait alert and oriented x 4 with discharge instructions no further questions asked Juan Jose Brandon RNMetroHealth [facility] Medical CenterEiocci3788-65-72 14:26:[address] [facility] CenterAolnbf9159-84-16 12:35:53 Makeda Bach is a 43 year old female presenting to ED with c/o headache. Patient reports has been ongoing x4 months. Patient states that she is from [place] and states that she was diagnosed with a "pseudotumor" which is causing pain down her neck and migraines. Patient to green chairs due to ED saturation [facility]
--- NOTE | 2024-11-07 02:18 | RAD REPORT ---
ADDENDUM #1 Code stroke results were discussed with Dr. oRdríguez by Dr. Villalba at the following time: 11/07/2024 2 :21 AM CDT. Electronically signed by: Trenton Villalba DO 11/07/2024 02:21 AM CDT RP NR End of Addendum INDICATION: STROKE ALERT COMPARISON: CT head June 29, 2024 TECHNIQUE: Unenhanced CT of the head was performed per protocol. Dose reduction techniques were utilized for this exam including automated exposure control, adjustmen ts to mA and/or kV according to patient's size, and the use of iterative reconstruction techniques. FINDINGS: ACUTE INFARCTION: No. HEMORRHAGE: No. MASS: No. BRAIN: Melchor-white matter differentiation is maintained. VENTRICLES / EXTRA-AXIAL SPACES: No hydrocephalus. BONES: Unremarkable. PARANASAL SINUSES: Unremarkable. IMPRESSION: No acute intracranial abnormality. Electronically signed by: Trenton Villalba DO 11/07/2024 02:11 AM CDT RP NR Due to temporary technical issues with the PACS/[employer] reporting system, reports are being dariusz d by the in-house radiologist without review as a courtesy to ensure prompt reporting the interpreting radiologist is fully responsible for the content of the report. Transcribed Date/Time: 11/07/2024 3:58 AM
[2024-11-07 02:25] LABS: Nucleated RBC Absolute Count 0.0 (0-0)
[2024-11-07 02:26] LABS: PT Prothrombin Time 11.9 SECONDS (10-13.0); PTT, Activated Partial Thromb 32.8 SECONDS (27.2-37.4); Protime INR 1.05
[2024-11-07 02:32] LABS: Absolute Lymphocytes (CBC) 1.6 K/uL (0.7-4.9); Hematocrit 40.6 % (36.0-45.0); Hemoglobin 13.4 g/dL (12.0-15.0); MCH 26.4 pg (27.0-35.0); MCHC 32.9 g/dL (32.0-36.0); MCV 80.2 fL (80-100); MPV 7.9 fL (7.6-11.3); Nucleated Red Blood Cells % 0.2 % (0-0); RBC Red Blood Cell Count 5.07 M/uL (3.86-4.86); White Blood Count 5.50 thou/uL (4.3-10.9)
[2024-11-07 02:36] LABS: ALT/SGPT 33 U/L (13-56); AST/SGOT 13 U/L (15-37); Albumin 3.0 g/dL (3.4-5.0); Albumin/Globulin Ratio 0.6 (1.1-1.8); Alkaline Phosphatase 103 U/L (45-117); Anion Gap 8.9 mEq/L (5.0-15.0); BUN Blood Urea Nitrogen 10 mg/dL (7-18); Globulin 4.7 g/dL (2.3-3.5); Glucose Level 171 mg/dL (74-106); Magnesium 2.0 mg/dL (1.6-2.4); Potassium 3.9 mEq/L (3.5-5.1); Troponin High Sensitivity 4.6 pg/mL (<58.9)
[2024-11-07 02:52] LABS: Bilirubin Indirect, Calculated 0.1 mg/dL (0.2-0.8)
--- NOTE | 2024-11-07 03:27 | ER ---
Nurse's Notes [facility] Name: Ninoska Bach Age: 44 yrs Sex: Female : 1980 Arrival Date: 11/07/2024 Time: 01:39 Bed 4 Private MD: Diagnosis: Transient ischemic attack Presentation: 11/07 01:40 Chief complaint: EMS states: patient woke up at 0100 with slurred speech, headache, and cp4 high blood pressure. 01:40 Method Of Arrival: EMS: [facility] 4 01:40 Coronavirus screen: Client denies travel out of the [place] in the last 14 days. At this cp4 time, the client does not indicate any symptoms associated with coronavirus-19. Ebola Screen: Patient negative for fever greater than or equal to 101.5 degrees Fahrenheit, and additional compatible Ebola Virus Disease symptoms Patient denies exposure to infectious person. Patient denies travel to an Ebola-affected area in the 21 days before illness onset. No symptoms or risks identified at this time. An acute neurological deficit is present. The charge nurse has been notified. The patient has been moved to a treatment area. The patients blood glucose was checked before arriving to the hospital and was found to be normal. Initial Sepsis Screen: Does the patient meet any 2 criteria? No. Patient's initial sepsis screen is negative. Does the patient have a suspected source of infection? No. Patient's initial sepsis screen is negative. Risk Assessment: Do you want to hurt yourself or someone else? Patient reports no desire to harm self or others. Onset of symptoms was November 07, 2024 at 01:00. 01:40 Acuity: MONSERRAT 2 cp4 Triage Assessment: 01:40 The onset of the patients symptoms was less than three hours ago. The onset of the cp4 patients symptoms was November 07, 2024 at 01:00. General: Appears in no apparent distress. uncomfortable, Behavior is calm, cooperative, appropriate for age. Pain: Denies pain. EENT: No signs and/or symptoms were reported regarding the EENT system. Neuro: Reports headache. Neuro: Reports slurred speech. Neuro: Level of Consciousness is awake, alert, obeys commands, Oriented to person, place, time, situation. Cardiovascular: Respiratory: Airway is patent Respiratory effort is even, unlabored. GI: No signs and/or symptoms were reported involving the gastrointestinal system. : No signs and/or symptoms were reported regarding the genitourinary system. Derm: No signs and/or symptoms reported regarding the dermatologic system. Musculoskeletal: No signs and/or symptoms reported regarding the musculoskeletal system. GOLD LEAF GILDER: 01:40 Not cp4 Stroke Activation: Symptom onset < 3 hours Physician: ED Attending; Name: Marcos; Notified At: 01:39; Arrived At: 01:39 Physician: Mid-Level Provider; Name: ; Notified At: 01:39; Arrived At: Physician: [not used]; Name: ; Notified At: ; Arrived At: Physician: [not used]; Name: ; Notified At: ; Arrived At: Physician: [not used]; Name: ; Notified At: ; Arrived At: Historical: - Allergies: 01:40 Compazine; cp4 01:40 Iodine; cp4 01:40 SHELLFISH; cp4 - Home Meds: 01:40 amlodipine 10 mg tablet 1 tab once [Active]; atorvastatin oral [Active]; carvedilol cp4 12.5 mg Oral tablet 1 tab 2 times per day [Active]; furosemide 20 mg Oral tablet 1 tab daily [Active]; metformin 500 mg Oral tablet 1 tab 2 times per day [Active]; - PMHx: 01:40 Bronchitis; Congestive heart failure; COPD; Degenerative disc disease; diabetes cp4 mellitus; Hypertension; Migraine; pseudotumor; Seizure; Seizure; Sleep Apnea; - PSHx: 01:40 Cholecystectomy; kidney stent; pacemaker; Total abdominal hysterectomy; cp4 - Immunization history:: Adult Immunizations up to date. - Infectious Disease History:: Denies. - Social history:: Smoking status: Patient denies any tobacco usage or history of. Screenin:18 [facility] ED Fall Risk Assessment (Adult) History of falling in the last 3 months, cp4 including since admission No falls in past 3 months (0 pts) Confusion or Disorientation No (0 pts) Intoxicated or Sedated No (0 pts) Impaired Gait No (0 pts) Mobility Assist Device Used No (0 pt) Altered Elimination No (0 pt) Score/Fall Risk Level 0 - 2 = Low Risk Oriented to surroundings, Maintained a safe environment, Assessed \T\ reinforced patient's understanding of fall precautions, Hourly rounding (assess needs \T\ fall precautionary measures) done. Abuse screen: Denies threats or abuse. Denies injuries from another. Nutritional screening: No deficits noted. Tuberculosis screening: No symptoms or risk factors identified. Never had TB. Assessment: 02:17 VAN Scoring: Arm Drift: Patients demonstrates NO arm weakness. Patient is VAN Negative. cp4 Visual Disturbance: No visual disturbance noted. Aphasia: No aphasia noted. Neglect: No neglect noted. Mobile Swallow Protocol Exclusion Criteria: NPO for medical/surgical reason by provider order Yes. 02:18 Reassessment: No changes from previously documented assessment. cp4 04:13 Mobile Swallow Protocol Oral Mechanism Examination Facial Symmetry: Normal, Motion: tb4 Normal, Lip Closure: Normal, Oral Mechanism Result: Normal. 3 oz Water Swallow Challenge: Pt able to drink all water without stopping, coughing, choking or throat clearing: Yes Result: PASS MD Notified: Yamile Rodríguez MD. TNKase (Tenecteplase) Screening: Not Applicable. 04:15 Mobile Swallow Protocol Brief Cognitive Screen What is your name? Normal, Where are you tb4 right now? Normal, What year is it? Normal. Vital Signs: 01:40 BP 161 / 92; Pulse 80; Resp 18; Temp 97.8; Pulse Ox 99% ; Weight 133.36 kg; Height 5 cp4 ft. 7 in. ; Pain 0/10; 02:30 BP 173 / 110; Pulse 79; Resp 18; Pulse Ox 99% ; cp4 03:00 BP 170 / 102; Pulse 76; Resp 18; Pulse Ox 99% ; mf3 03:38 BP 168 / 84; Pulse 85; Resp 19; Pulse Ox 97% on R/A; tb4 04:12 BP 157 / 75; Pulse 83; Resp 16; Pulse Ox 98% on R/A; tb4 01:40 Body Mass Index 46.05 (133.36 kg, 170.18 cm) cp4 01:40 Pain Scale: Adult cp4 NIH Stroke Scale Scores: 02:17 NIHSS Score: 0 cp4 ED Course: 01:40 Arm band placed on right wrist. Patient placed in an exam room, on a stretcher. cp4 01:42 Patient arrived in ED. rv1 01:42 Yamile Rodríguez MD is Attending Physician. sp3 01:58 CT Stroke Brain w/o Contrast In Process Unspecified. EDMS 02:13 Triage completed. cp4 02:14 EKG done, by ED staff, reviewed by Yamile Rodríguez MD. oe 02:18 No provider procedures requiring assistance completed. Initial lab(s) drawn, by me, cp4 sent to lab. Inserted saline lock: 20 gauge in right antecubital area, using aseptic technique. Blood collected. Flushed with 10 mL NS. Inserted saline lock: 18 gauge in left antecubital area, using aseptic technique. Flushed with 10 mL NS. 02:18 Bed in low position. Call light in reach. Side rails up X2. cp4 04:12 IV discontinued, intact, bleeding controlled, No redness/swelling at site. Pressure tb4 dressing applied. 04:13 Provided Education on: Follow up with neurology . tb4 Administered Medications: 03:59 Drug: morphine IVP or IV 4 mg IVP once over 4 mins Route: IVP; Infused Over: 4 mins; tb4 Site: left antecubital; 04:13 Follow up: Response: No adverse reaction; Pain is decreased cp4 03:59 Drug: Ondansetron IVP 4 mg IVP once; over 2 minutes Route: IVP; Site: left antecubital; tb4 04:13 Follow up: Response: No adverse reaction; Nausea is decreased cp4 Medication: 02:18 VIS not applicable for this client. cp4 Point of Care Testing: Blood Glucose: 01:40 Blood Glucose: 156 mg/dL; cp4 Ranges: Outcome: 03:26 Discharge ordered by . sp3 04:12 Discharged to home via wheelchair, with family, tb4 04:12 Condition: stable 04:12 Discharge instructions given to patient, family, Instructed on discharge instructions, follow up and referral plans. Demonstrated understanding of instructions, follow-up care, 04:15 Patient left the ED. tb4 NIH Stroke Scale - NIH Stroke Score Date: 11/07/2024 Time: 02:17 Total Score = 0 10. Dysarthria (speech clarity - read or repeat words) - 0(Normal) 11. Extinction and Inattention (visual/tactile/auditory/spatial/personal) - 0(No abnormality) 1a. Level of Consciousness (LOC) - 0(Alert) 1b. Level of Consciousness (LOC) (Month \T\ Age) - 0(Both) 1c. LOC Commands (Open \T\ Closes Eyes/Beater Operator) - 0(Both) 2. Best Gaze (Lateral Gaze Paresis) - 0(Normal) 3. Visual Field Loss - 0(No visual loss) 4. Facial Palsy - 0(Normal) 5a. Left Arm: Motor (10-second hold) - 0(No drift) 5b. Right Arm: Motor (10-second hold) - 0(No drift) 6a. Left Leg: Motor (5-second hold - always test supine) - 0(No drift) 6b. Right Leg: Motor (5-second hold - always test supine) - 0(No drift) 7. Limb Ataxia (finger/nose \T\ heel/marques - test with eyes open) - 0(Absent) 8. Sensory Loss (pinprick arms/legs/face) - 0(Normal) 9. Best Language: Aphasia (description/naming/reading) - 0(No aphasia) Initials: cp4 Signatures: Dispatcher [employer] EDMS Freddy Sharpe Setul, MD MD sp3 Taylor Plasencia rv1 Kamini Espino cp4 Cathy Rueda RN RN tb4 Ewelina Ohara RN RN mf3
--- NOTE | 2024-11-07 03:27 | EDPHYS ---
Physician Documentation [facility] Name: Ninoska Bach Age: 44 yrs Sex: Female : 1980 Arrival Date: 11/07/2024 Time: 01:39 Bed 4 Private MD: ED Physician Yamile Rodríguez HPI: 11/07 02:14 This 44 yrs old Black Female presents to ER via EMS with complaints of S/S of Possible sp3 Stroke. 02:14 43-year-old female with a history of TIAs, diabetes, pseudotumor cerebri, CHF, sp3 obstructive sleep apnea now presents with a resolved slurred speech episode that started [employer]. She has had multiple lumbar punctures for relief of her pseudotumor. She also has a pacemaker. She states she is feeling back to her normal self. She takes aspirin. ROS otherwise negative.. 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 Historical: - Allergies: 01:40 Compazine; cp4 01:40 Iodine; cp4 01:40 SHELLFISH; cp4 - Home Meds: 01:40 amlodipine 10 mg tablet 1 tab once [Active]; atorvastatin oral [Active]; carvedilol cp4 12.5 mg Oral tablet 1 tab 2 times per day [Active]; furosemide 20 mg Oral tablet 1 tab daily [Active]; metformin 500 mg Oral tablet 1 tab 2 times per day [Active]; - PMHx: 01:40 Bronchitis; Congestive heart failure; COPD; Degenerative disc disease; diabetes cp4 mellitus; Hypertension; Migraine; pseudotumor; Seizure; Seizure; Sleep Apnea; - PSHx: 01:40 Cholecystectomy; kidney stent; pacemaker; Total abdominal hysterectomy; cp4 - Immunization history:: Adult Immunizations up to date. - Infectious Disease History:: Denies. - Social history:: Smoking status: Patient denies any tobacco usage or history of. ROS: 02:16 Constitutional: Negative for fever, chills, and weight loss, Eyes: Negative for injury, sp3 pain, redness, and discharge, Neck: Negative for injury, pain, and swelling, Respiratory: Negative for shortness of breath, cough, wheezing, and pleuritic chest pain, Abdomen/GI: Negative for abdominal pain, nausea, vomiting, diarrhea, and constipation, Back: Negative for injury and pain, MS/Extremity: Negative for injury and deformity, Skin: Negative for injury, rash, and discoloration, Psych: Negative for depression, anxiety, suicide ideation, homicidal ideation, and hallucinations, Allergy/Immunology: Negative for hives, rash, and allergies, Endocrine: Negative for neck swelling, polydipsia, polyuria, polyphagia, and marked weight changes, Hematologic/Lymphatic: Negative for swollen nodes, abnormal bleeding, and unusual bruising, 02:16 All other systems are negative, Exam: 02:16 Constitutional: This is a well developed, well nourished patient who is awake, alert, sp3 and in no acute distress. Head/Face: Normocephalic, atraumatic. Eyes: Pupils equal round and reactive to light, extra-ocular motions intact. Lids and lashes normal. Conjunctiva and sclera are non-icteric and not injected. Cornea within normal limits. Periorbital areas with no swelling, redness, or edema. ENT: Nares patent. No nasal discharge, no septal abnormalities noted. External auditory canals are clear. Oropharynx with no redness, swelling, or masses, exudates, or evidence of obstruction, uvula midline. Mucous membranes moist. Neck: Trachea midline, no thyromegaly or masses palpated, and no cervical lymphadenopathy. Supple, full range of motion without nuchal rigidity, or vertebral point tenderness. No Meningismus. Chest/axilla: Normal chest wall appearance and motion. Nontender with no deformity. No lesions are appreciated. Respiratory: Lungs have equal breath sounds bilaterally, clear to auscultation and percussion. No rales, rhonchi or wheezes noted. No increased work of breathing, no retractions or nasal flaring. Abdomen/GI: Soft, non-tender, with normal bowel sounds. No distension or tympany. No guarding or rebound. No evidence of tenderness throughout. Back: No spinal tenderness. No costovertebral tenderness. Full range of motion. Skin: Warm, dry with normal turgor. Normal color with no rashes, no lesions, and no evidence of cellulitis. MS/ Extremity: Pulses equal, no cyanosis. Neurovascular intact. Full, normal range of motion. Neuro: Awake and alert, GCS 15, oriented to person, place, time, and situation. Cranial nerves II-XII grossly intact. Motor strength 5/5 in all extremities. Sensory grossly intact. Cerebellar exam normal. Normal gait. Psych: Awake, alert, with orientation to person, place and time. Behavior, mood, and affect are within normal limits. 02:18 ECG was reviewed by the Attending Physician. EKG demonstrates normal sinus rhythm at 84 sp3 bpm with normal intervals, normal QRS, normal axis and nonspecific diffuse ST/T changes without evidence of acute ischemia. 02:19 Cardiovascular: Regular rate and rhythm with a normal S1 and S2. No gallops, murmurs, sp3 or rubs. Normal PMI, no JVD. No pulse deficits. Vital Signs: 01:40 BP 161 / 92; Pulse 80; Resp 18; Temp 97.8; Pulse Ox 99% ; Weight 133.36 kg; Height 5 cp4 ft. 7 in. ; Pain 0/10; 02:30 BP 173 / 110; Pulse 79; Resp 18; Pulse Ox 99% ; cp4 03:00 BP 170 / 102; Pulse 76; Resp 18; Pulse Ox 99% ; mf3 03:38 BP 168 / 84; Pulse 85; Resp 19; Pulse Ox 97% on R/A; tb4 04:12 BP 157 / 75; Pulse 83; Resp 16; Pulse Ox 98% on R/A; tb4 01:40 Body Mass Index 46.05 (133.36 kg, 170.18 cm) cp4 01:40 Pain Scale: Adult cp4 NIH Stroke Scale Scores: 02:17 NIHSS Score: 0 cp4 MDM: 01:52 Medical Screening Exam initiated sp3 02:17 Data reviewed: vital signs, nurses notes, old medical records, lab test result(s), EKG, sp3 radiologic studies. 02:17 ED course: 44-year-old female with history of TIAs and PMH above also pseudotumor sp3 presents with slurred speech now resolved. NIH stroke scale is 0. Differential diagnosis includes TIA, pseudotumor, electrolyte abnormality, other intracranial process, among others. Workup will include CT scan of the head noncontrast and general labs including troponin and electrolytes, and general observation. If workup negative and patient continues to be at her current baseline, we will safely discharge patient home with follow-up to PCP and outpatient neurology.. 03:25 ED course: Full workup negative. Patient already on aspirin. No further symptoms in the 3 ED. We Will safely discharge home.. 11/07 01:52 Order name: Basic Metabolic Panel; Complete Time: 03:25 sp3 11/07 01:52 Order name: CBC with Diff; Complete Time: 02:36 11/07 01:52 Order name: Hepatic Function; Complete Time: 03:25 11/07 01:52 Order name: High Sensitivity Troponin; Complete Time: 03:25 sp3 11/07 01:52 Order name: Magnesium; Complete Time: 03:25 sp3 11/07 01:52 Order name: Protime (+inr); Complete Time: 02:36 3 11/07 01:52 Order name: Ptt, Activated; Complete Time: 02:36 sp3 11/07 02:20 Order name: Glucose, Ancillary Testing; Complete Time: 02:22 EDMS 11/07 01:52 Order name: CT Stroke Brain w/o Contrast 11/07 01:52 Order name: EKG; Complete Time: 01:53 3 11/07 01:52 Order name: Cardiac monitoring; Complete Time: 02:11/07 01:52 Order name: EKG - Nurse/Tech; Complete Time: 02:16 11/07 01:52 Order name: IV Saline Lock; Complete Time: 02:11/07 01:52 Order name: Labs collected and sent; Complete Time: 02:20 11/07 01:52 Order name: NPO; Complete Time: 02:11/07 01:52 Order name: O2 Per Protocol; Complete Time: 02:3 11/07 01:52 Order name: O2 Sat Monitoring; Complete Time: 02:11/07 01:52 Order name: Stroke Swallow Screen; Complete Time: 02:20 3 Administered Medications: 03:59 Drug: morphine IVP or IV 4 mg IVP once over 4 mins Route: IVP; Infused Over: 4 mins; tb4 Site: left antecubital; 04:13 Follow up: Response: No adverse reaction; Pain is decreased cp4 03:59 Drug: Ondansetron IVP 4 mg IVP once; over 2 minutes Route: IVP; Site: left antecubital; tb4 04:13 Follow up: Response: No adverse reaction; Nausea is decreased cp4 Point of Care Testing: Blood Glucose: 01:40 Blood Glucose: 156 mg/dL; cp4 Ranges: Critical Glucose Levels:Adult <50 mg/dl or >400 mg/dl <40 mg/dl or >180 mg/dl Disposition Summary: 11/07/24 03:26 Discharge Ordered Notes: Location: Home sp3 Condition: Stable sp3 Diagnosis - Transient ischemic attack sp3 Followup: sp3 - With: Private Physician - When: Upon discharge from the Emergency Department - Reason: Continuance of care Discharge Instructions: - Discharge Summary Sheet sp3 - Transient Ischemic Attack sp3 Forms: - Medication Reconciliation Form sp3 - Antibiotic Education sp3 - Prescription Opioid Use sp3 - Patient Portal Instructions sp3 - Leadership Thank You Letter sp3 - Family Work Release vc1 NIH Stroke Scale - NIH Stroke Score Date: 11/07/2024 Time: 02:17 Total Score = 0 10. Dysarthria (speech clarity - read or repeat words) - 0(Normal) 11. Extinction and Inattention (visual/tactile/auditory/spatial/personal) - 0(No abnormality) 1a. Level of Consciousness (LOC) - 0(Alert) 1b. Level of Consciousness (LOC) (Month \T\ Age) - 0(Both) 1c. LOC Commands (Open \T\ Closes Eyes/Door Worker) - 0(Both) 2. Best Gaze (Lateral Gaze Paresis) - 0(Normal) 3. Visual Field Loss - 0(No visual loss) 4. Facial Palsy - 0(Normal) 5a. Left Arm: Motor (10-second hold) - 0(No drift) 5b. Right Arm: Motor (10-second hold) - 0(No drift) 6a. Left Leg: Motor (5-second hold - always test supine) - 0(No drift) 6b. Right Leg: Motor (5-second hold - always test supine) - 0(No drift) 7. Limb Ataxia (finger/nose \T\ heel/marques - test with eyes open) - 0(Absent) 8. Sensory Loss (pinprick arms/legs/face) - 0(Normal) 9. Best Language: Aphasia (description/naming/reading) - 0(No aphasia) Initials: cp4 Signatures: Dispatcher [employer] EDMS Yamile Rodríguez MD MD sp3 Kamini Espino cp4 Cathy Rueda RN RN tb4 Corrections: (The following items were deleted from the chart) 02:20 02:16 Cardiovascular: Atrial fibrillation at rate 80 bpm., sp3 sp3
[2024-11-07] MEDS ORDERED: MORPHINE 4 MG/ML SYR ONE (03:53)
[2024-11-07] MEDS ORDERED: ONDANSETRON 4 MG/2 ML VIAL ONE (03:53)
[2024-11-07 04:31] VITALS: TEMP 97.8
[2024-11-07 04:36] VITALS: BP 157/75; O2SAT 98
== END 2024-11-07 04:15 | disposition home or self-care (01) ==
LOC: ER 01:39
DX: G45.9 Transient cerebral ischemic attack, unspecified (principal); I10 Essential (primary) hypertension; I50.9 Heart failure, unspecified; J44.9 Chronic obstructive pulmonary disease, unspecified
CPT/HCPCS: 93005; 85025; 80048; 36415; 83735; 85610; 82947; 80076; 85730; 84484; 70450; 96375; 96374; 99285; J2405

== ENCOUNTER 2024-11-07 15:42 | Emergency (ER) | payer OTHER ==
--- OUTSIDE RECORDS SUMMARY | 2024-11-07 15:49 | XMS REPORT | Continuity of Care Document ---
Author Name Unknown Address [address] [facility] [address] [place] [address] [facility] Address [address] [facility] [place] [address] Care Team Providers Care Assistant Property Manager Name Role Phone Pcp, Patient Does Not Have A Primary Care Physic mikala KHADRA LANG Attending Clinician Unavailable SEGUNDO BARNES Attending Clinician Unavailable ALEXANDER ESPITIA Attending Clinician Unavailable KIM DHALIWAL Attending Clinician Unavail able KAYLEY DILLON Attending Clinician Unavailab WILLARD Mark Attending Clinician Unavailable JOSE FENG Attending Clinician Unavailable [id number] Attending Clinician Unavailable REGI LEONARDO Attending Clinician Unav ailable ROMA TELLO Attending Clinician Unavailable UMAIR BRUNO Attending Clinician Unavailable EBONI HEAD Attending Clinician Unavailable [id number] Attending Clinician Unavailable TRAE VALDEZ Attending Clinician Unavaila IVAN Pearson Attending Clinician Lissa jaz GAN MD Attending Clinician Unavailab TRAY Self Attending Clinician Unavailable ANDREA PRINCE Attending Clinician Unavailab Katelyn Lyles Attending Clinician Unavailable ALEXANDRE SNYDER Attending Clinician Unavaila ALEXANDRE Hidalgo Attending Clinician UnavailAlexandre Pichardo MD Attending Clinician [phone] Carson Bae MD Attending Clinician [phone] CARSON BAE Attending Clinician Unavailable CARSON BAE Attending Clinician Unavailable ADAM RHODES Admitting Clinician Unavailbob e CARSON BAE Admitting Clinician Unavailable Payers Payer Name Policy Type Policy Number Effective Date Expirati on Date Source [facility] JENIFER BONNER FOCUS 9 [id number] 2024 00:00:00 Problems Condition Name Condition Details Condition Category Status Onset Date Resolution Date Last Treatment Date Treating Clinician Comments Source Rectal bleeding Rectal bleeding Disease Active 09-18 00:00: 00 Ana Seybold - Externa l Chronic constipati on Chronic constipati on Disease Active 09-18 00:00: 00 Ana Seybold - Externa l History of sick sinus syndrome History of sick sinus syndrome Disease Active 09-18 00:00: 00 Ana Seybold - Externa l Morbid obesity Morbid obesity [...] type II diabetes mellitus Disease Active Ana Seybold - Externa l Pacemaker Pacemaker Disease Active [...] pain Chronic back pain Disease Active Ana Saucedoybold - Externa l 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 with hypoxia Disease Active Ana Seybold - Externa l Allergies, Adverse Reactions, Alerts Allergy Name Allergy Type Status Severity Reaction(s) Onset Date Inactive Date Treating Clinician Comments Source Iodine Propensi ty to adverse reaction s Active Swelling 0 6-02 00:00: 00 Ana Saucedoybold - Externa l Shellfis h Derived Propensi ty to adverse reaction s Active Anaphylaxis 2023-0 9-03 00:00: 00 [facility] PROCHLOR PERAZINE DRUG INGREDI Active Anaphylaxis 0 9-03 00:00: 00 [facility] SHELLFIS H DERIVED DRUG INGREDI Active Anaphylaxis 0 9-03 00:00: 00 [facility] IODINE DRUG INGREDI Active Anaphylaxis 0 9-03 00:00: 00 [facility] Prochlor perazine Propensi ty to adverse reaction s Active Anaphylaxis 2023-0 9-03 00:00: 00 [facility] Iodine Propensi ty to adverse reaction s Active Anaphylaxis 2023-0 9-03 00:00: 00 [facility] Compazin e Propensi ty to adverse reaction s Active Anaphylaxis, Hives, Itching 2019-0 3-07 00:00: 00 Ana Krishnaold - Externa l Prochlor perazine Edisylat e Propensi ty to adverse reaction s Active Anaphylaxis, Swelling 2018-0 8-27 00:00: 00 Throat swelling Ana Allison - Externa l Azilsart an-Chlor thalidon e Propensi ty to adverse reaction s Active Swelling 2018-0 4-16 00:00: 00 Swelling of throat Ana Allison - Externa l NO KNOWN ALLERGIE S Drug Class Active [facility] Social History Social Habit Start Date Stop Date Quantity Comments Source ASSERTION Not Ana Allison - External Sexual orientation Devorah Allison - External Gender identity Tara Allison - External Alcoholic beverage intake 2024-10-22 00:00:00 2024-10-22 00:00:00 Current drinker of alcohol (finding) Ana Allison - External Tobacco use and exposure 2024-07-16 00:00:00 2024-07-16 00:00:00 Smokeless tobacco non-user Ana Allison - External History of Social function 2024-07-16 00:00:00 2024-07-16 00:00:00 Ana Allison - External Alcohol Comment 2024-07-16 00:00:00 2024-07-16 00:00:00 only on occassion Ana Allison - External Sex 2023-11-12 09:40:57 2023-11-12 09:40:57 Female (finding) Ana Allison - External Sex assigned at 1980 00:00:00 1980 00:00:00 Ana Rockwell External Smoking Status Start Date Stop Date Source Tobacco smoking consumption unknown [facility] Never smoked tobacco Ana Allison - External Medications Ordered Medication Name Filled Medication Name Start Date Stop Date Current Medication? Ordering Clinician Indication Dosage Frequency Signature (SIG) Comments Components Source predniSONE (DELTASONE) 20 MG oral tablet predniSONE (DELTASONE) 20 MG oral tablet 10-22 00:00: 00 11-01 23:59 :00 No [id number] 40mg QD Take 2 tablets (40 mg [...] a month thereafter for maintenanc e. Ana Burnetta sowmya busPIRone HCl 5 MG oral Tablet busPIRone HCl 5 MG oral Tablet 09-25 00:00: 00 Yes [id number] 5mg Q.[id number] 3D Take 1 tablet (5 mg total) by mouth 3 times daily as needed (anxiety). Ana Burnetta sowmya linaCLOtide 145 MCG oral Capsule linaCLOtide 145 MCG oral Capsule 09-25 00:00: 00 Yes [id number] 145ug QD Take 1 capsule (145 mcg total) by mouth daily. Ana deng linaCLOtide 145 MCG oral Capsule linaCLOtide 145 MCG oral Capsule 09-18 10:57: 03 Yes [id number] 145ug QD Take 1 capsule (145 mcg [...] MG oral Tablet 09-18 00:00: 00 Yes [id number] 40mg Q.5D Take 1 tablet (40 mg total) by mouth 2 times daily. Ana deng Carvedilol 25 MG oral Tablet Carvedilol 25 MG oral Tablet 09-18 00:00: 00 Yes [id number] 25mg Take 1 tablet (25 mg total) by mouth in the morning and 1 tablet (25 mg total) in the evening. Take with meals. Ana deng Levothyroxi ne Sodium 50 MCG oral Tablet Levothyroxi ne Sodium 50 MCG oral Tablet 09-18 00:00: 00 Yes [id number] 50ug QD Take 1 tablet (50 mcg total) by mouth daily. Ana deng Hydrocort-P ramoxine, Perianal, 1-1 % apply externally Foam Hydrocort-P ramoxine, Perianal, 1-1 % apply externally Foam 09-18 00:00: 00 Yes [id number] 1{appli cation} Q.[id number] 3D Apply 1 Applicatio n topically 3 times daily as needed (hemorrhoi ds). Ana deng OZEMPIC (0.25 or 0.5 mg/dose) 2 mg/3 mL SQ Solution Pen-Injecto r OZEMPIC (0.25 or 0.5 mg/dose) 2 mg/3 mL SQ Solution Pen-Injecto r 09-18 00:00: 00 11-13 23:59 :00 No [id number] 3 .25mg Q1W Inject 0.25 mg into the skin once a week. Ana edng Galcanezuma b-gnlm (Emgality) 120 MG/ML subcutaneou s Solution Auto-inject or injection Galcanezuma b-gnlm (Emgality) 120 MG/ML subcutaneou s Solution Auto-inject or injection 09-04 00:00: 00 Yes Loading dose: Inject 2 pens (240 mg) under the skin for one dose then inject one pen once a month thereafter for isabella moraes. Ana deng Cyanocobala min (Vitamin B-12) 1000 [...] (TORADOL) 30 mg/mL 08-21 13:23: 54 No [id number] 30mg 30 mg, intramuscu lar, ONCE, On [...] Cap DR Particles 08-21 00:00: 00 Yes [id number] 60mg QD Take 1 capsule (60 mg total) by mouth daily. Aan deng Atorvastati n Calcium 40 MG oral Tablet Atorvastati n Calcium 40 MG oral Tablet 08-15 00:00: 00 Yes [id number] 3 40mg QD Take 1 tablet (40 [...] 08-15 00:00: 00 09-18 00:00 :00 No [id number] .25mg Q1W Inject 0.25 mg into the skin once a week. Ana deng Carvedilol 25 MG oral Tablet Carvedilol 25 MG oral Tablet 08-15 00:00: 00 09-18 00:00 :00 No [id number] 12.5mg Take 0.5 tablets (12.5 mg total) by mouth in the morning and 0.5 tablets (12.5 mg total) in the evening. Take with meals. Ana deng glipiZIDE 5 MG oral Tablet glipiZIDE 5 MG oral Tablet 08-14 00:00: 00 Yes [id number] 5mg Take 1 tablet (5 mg total) [...] MG oral Tablet 08-07 00:00: 00 Yes [id number] 1{tbl} QD Take 1 tablet by mouth daily. Ana deng Atorvastati n Calcium 20 MG oral Tablet 08-07 00:00: 00 Yes [id number] 3 20mg QD Take 1 tablet (20 mg total) by mouth nightly. Ana deng Metformin HCl 500 MG oral Tablet Metformin HCl 500 MG oral Tablet 08-07 00:00: 00 Yes [id number] 9106 500mg Take 1 tablet (500 mg total) by mouth in the morning and 1 tablet (500 mg total) in the evening. Take with meals. Ana deng Pantoprazol e Sodium 40 MG oral Tablet Delayed Response Pantoprazol e Sodium 40 MG oral Tablet Delayed Response 08-07 00:00: 00 Yes [id number] 40mg QD Take 1 tablet (40 mg total) by mouth daily. Ana deng Gabapentin 400 MG oral Capsule Gabapentin 400 MG oral Capsule 08-07 00:00: 00 Yes [id number] 400mg Q.[id number] 3D Take 1 capsule (400 mg total) by mouth 3 times daily. Ana deng Amlodipine Besylate (Norvasc) 10 MG oral Tablet Amlodipine Besylate (Norvasc) 10 MG oral Tablet 08-07 00:00: 00 Yes [id number] 10mg QD Take 1 tablet (10 mg total) by mouth daily. Ana deng Atorvastati n Calcium 10 MG oral Tablet 08-07 00:00: 00 08-07 00:00 :00 No [id number] 3 20mg QD Take 2 tablets (20 [...] tablet (50 mcg total) by mouth daily. nAa deng Omeprazole 40 MG oral Delayed Release [...] MG oral Tablet 07-16 00:00: 00 Yes [id number] 12.5mg Take 1 tablet (12.5 mg total) by mouth in the morning and 1 tablet (12.5 mg total) in the evening. Take with meals. Ana deng Triamcinolo ne Acetonide 0.1 % apply externally Cream 07-16 00:00: 00 Yes [id number] 1{appli cation} QD Apply 1 Applicatio n topically daily. Ana deng Ketorolac Tromethamin e 10 MG oral Tablet 06-29 00:00: 00 Yes TAKE 1 TABLET BY MOUTH EVERY 6 HOURS NEEDED FOR PAIN (MAX TOTAL OF 5 DAYS FROM ORAL, INTRANASAL , OR PARENTERAL FORMULATIO N) Ana deng Ondansetron (ZOFRAN) 8 MG oral TABLET DISPERSIBLE Ondansetron (ZOFRAN) 8 MG oral TABLET DISPERSIBLE 06-29 00:00: 00 Yes DISSOLVE 1 TABLET IN [...] 10-27 00:00: 00 11-01 04:59 :00 No [id number] 40mg Take 2 tablets by mouth in the morning for 4 days. [facility] furosemide (LASIX) injection 40 mg 10-26 23:15: 00 10-26 23:40 :00 No 40mg 40 mg, IV Push, ONCE, 1 dose, On Tue10/27/23 at 1815, [facility] ipratropium -albuteroL (DUONEB) 0.5 mg-3 mg(2.5 mg base)/3 mL nebulizer solution 3 mL 10-26 23:00: 00 10-26 22:21 :00 No 3mL 3 mL, Inhalation , ONCE, 1 dose, On Liyah 10/27/23 at 1800, Routine [facility] dexamethaso ne sod phos PF injection 10 mg 10-26 22:15: 00 10-26 22:21 :00 No 10mg 10 mg, Slow IV Push, ONCE, 1 dose, On Tue10/27/23 at 1715, 1 mL [facility] furosemide 20 mg tablet 10-26 00:00: 00 11-03 04:59 :00 No [id number] 40mg Take 2 tablets by mouth in the morning for 7 days. [facility] magnesium sulfate in water 2 gram/50 mL (4 %) infusion 2 g 10-17 21:15: 00 10-17 21:01 :00 No 2g 2 g, IV Piggyback, Administer over 15 Minutes, ONCE, 1 dose, On Tue10/18/23 at 1615, Routine [facility] methocarbam oL (ROBAXIN) injection 1,000 mg 10-17 19:45: 00 10-17 20:01 :00 No 1000mg 1,000 mg, Slow IV Push, Administer over 3-5 Minutes, ONCE, 1 dose, On Tue10/18/23 at 1445, Routine [facility] ketorolac (TORADOL) injection 15 mg 10-17 19:45: 00 10-17 19:58 :00 No 15mg 15 mg, Slow IV Push, ONCE, 1 dose, On Tue10/18/23 at 1445, Routine [facility] meclizine (TRAVEL-EAS E (MECLIZINE) ) tablet 25 mg 10-17 19:00: 00 10-17 19:58 :00 No 25mg 25 mg, Oral, ONCE, 1 dose, On Tue10/18/23 at 1400, [facility] meclizine 25 mg tablet 10-17 00:00: 00 Yes [id number] 25mg Take 1 tablet by mouth 3 (three) times daily as needed for Dizziness or Nausea. [facility] methocarbam oL 750 mg tablet 10-17 00:00: 00 Yes [id number] 750mg Take 1 tablet by mouth 4 (four) times daily. [facility] Tizanidine HCl 4 MG oral Tablet 8 00:00: 00 08-07 00:00 :00 No 4mg [...] 00:00: 00 08-07 00:00 :00 No 300mg Q.[id number] 3D Take 1 capsule (300 mg total) by mouth 3 times daily. Ana deng Carvedilol 12.5 MG oral Tablet 07-16 00:00: 00 07-16 00:00 :00 No Ana deng Immunizations Ordered Immunization Name Filled Immunization Name Date Status Comments Source Pneumococcal Vaccine, Polysaccharide Pneumococcal Vaccine, Polysaccharide 2021-03-17 00:00:00 Completed Ana Seybold - External Pneumococcal Vaccine, Polysaccharide Unknown Completed Ana Seybold - External Pneumococcal Vaccine, Polysaccharide Unknown Completed Ana Seybold - External Pneumococcal Vaccine, Polysaccharide Unknown Completed Ana Seybold - External Pneumococcal Vaccine, Polysaccharide Unknown Completed Naa Seybold - External Pneumococcal Vaccine, Polysaccharide Unknown [...] Respiratory rate 2024-10-22 14:15:00 16 /min Ana Saucedoybold - External Body height 2024-10-22 14:15:00 157.5 cm Anakathe Allison - External Body weight 2024-10-22 14:15:00 131.09 kg Ana Seybold - External BMI 2024-10-22 14:15:00 52.86 kg/m2 Ana azmonica - External Oxygen saturation in Arterial blood [...] Body height 2024-08-30 16:37:00 157.5 cm Ana Saucedoybold - External Body weight 2024-08-30 16:37:00 129.729 kg Ana Seybold - External BMI 2024-08-30 16:37:00 52.31 kg/m2 Ana Saucedoybold - External Oxygen saturation in Arterial blood [...] blood pressure 2024-07-16 19:25:00 134 mm[Hg] Ana Allison - External Diastolic blood pressure 2024-07-16 19:25:00 [...] Systolic blood pressure 2023-10-27 21:54:00 140 mm[Hg] [facility] Diastolic blood pressure 2023-10-27 21:54:00 89 mm[Hg] [facility] Heart rate 2023-10-27 21:54:00 69 /min [facility] Respiratory rate 2023-10-27 21:54:00 18 /min [facility] Oxygen saturation in Arterial blood by Pulse oximetry 2023-10-27 21:54:00 97 /min [facility] Body temperature 2023-10-27 18:20:00 36.94 Natty [facility] Body height 2023-10-27 18:17:00 157.5 cm [facility] Body weight 2023-10-27 18:17:00 122.471 kg [facility] BMI 2023-10-27 18:17:00 49.38 kg/m2 [facility] Heart rate 2023-10-18 21:45:00 78 /min [facility] Oxygen saturation in Arterial blood by Pulse oximetry 2023-10-18 21:45:00 99 /min [facility] Systolic blood pressure 2023-10-18 21:30:00 118 mm[Hg] [facility] Diastolic blood pressure 2023-10-18 21:30:00 75 mm[Hg] [facility] Respiratory rate 2023-10-18 21:30:00 18 /min [facility] Body height 2023-10-18 17:38:00 157.5 cm [facility] Body temperature 2023-10-18 17:37:00 36.28 Natty [facility] Body weight 2023-10-18 17:37:00 122.471 kg [facility] BMI 2023-10-18 17:37:00 49.38 kg/m2 [facility] Procedures Procedure Date / Time Performed Performing Clinician Source PRE/POST SPIROMETRY (PPO) 2024-10-22 15:05:25 Rozina Barnes - External ALLERGENS, ZONE 6 2024-10-22 00:00:00 Guilherme Allison - External IMMUNOGLOBULIN E, TOTAL 2024-10-22 00:00:00 Ana Allison - External CBC WITH DIFFERENTIAL 2024-10-22 00:00:00 Ana Allison - External ECG- ADULT 2024-10-22 00:00:00 Ana peraza - External POCT GLUCOSE (AUTOMATED) 2023-10-27 21:53:00 Alexandre Snyder [facility] TROPONIN I 2023-10-27 20:08:00 Jignesh Castro [facility] COMP. METABOLIC PANEL ([id number]) 2023-10-27 20:08:00 Jignesh Castro [facility] CBC WITH DIFF 2023-10-27 20:08[facility] 2023-10-27 20:08:00 Jignesh Castro [facility] XR CHEST 1 VW 2023-10-27 18:58:00 Jignesh Castro [facility] URINALYSIS 2023-10-18 20:50:00 Lila Cooper [facility] XR CHEST 2 VW 2023-10-18 19:55:35 Lila Cooper [facility] TROPONIN I 2023-10-18 19:47:00 Lila Cooper [facility] COMP. METABOLIC PANEL ([id number]) 2023-10-18 19:47:00 Lila Cooper [facility] CBC WITH DIFF 2023-10-18 19:47:00 Lila Cooper [facility] N-TERMINAL PRO-BNP 2023-10-18 19:47:00 Lila Cooper [facility] CT HEAD WO CONTRAST 2023-10-18 19:34:52 Nicki Cooper [facility] PULMONARY STRESS TESTING Guilherme saucedoyusra Estefany - External Plan of Care Planned Activity Planned Date Details Comments Source Encounters Start Date/Time End Date/Time Encounter Type Admission Type Attending Clinicians Care Facility Care Department Encounter ID Source 2024-12-10 13:30:00 2024-12-10 13:30:00 Outpatient KHADRA LANG [id number] [facility] 2024-12-07 14:00:00 2024-12-07 14:00:00 Outpatient SEGUNDO BARNES [id number] [facility] 2024-11-30 15:15:00 2024-11-30 15:15:00 Outpatient ALEXANDER ESPITIA [id number] [facility] 2024-11-22 14:00:00 2024-11-22 14:00:00 Outpatient KIM DHALIWAL [id number] [facility] 2024-11-20 14:00:00 2024-11-20 14:00:00 Outpatient KAYLEY DILLON [id number] [facility] 2024-11-07 14:00:00 2024-11-07 14:00:00 Outpatient WILLARD COHN [id number] [facility] 2024-11-07 00:00:00 2024-11-07 00:00:00 Outpatient KAYLEY DILLON [id number] [facility] 2024-11-02 14:00:00 2024-11-02 14:00:00 Outpatient JOSE FENG [id number] [facility] 2024-11-02 00:00:00 2024-11-02 00:00:00 Outpatient KAYLEY DILLON ANA PEREZ [id number] [facility] 2024-10-23 09:15:00 2024-10-23 09:15:00 Outpatient ALEXANDER ESPITIA ANA PEREZ [id number] [facility] 2024-10-22 15:45:00 2024-10-22 15:45:00 Outpatient TREDelta ANA PEREZ [id number] [facility] 2024-10-22 14:30:00 2024-10-22 14:30:00 Outpatient SEGUNDO BARNES [id number] [facility] 2024-10-11 00:00:00 2024-10-11 00:00:00 Outpatient REGI LEONARDO [id number] [facility] 2024-10-09 13:00:00 2024-10-09 13:00:00 Outpatient ROMA TELLO [id number] [facility] 2024-10-08 11:00:00 2024-10-08 11:00:00 Outpatient ANA PEREZ [id number] [facility] 2024-10-05 09:15:00 2024-10-05 09:15:00 Outpatient ANA PEREZ [id number] [facility] 2024-10-04 11:30:00 2024-10-04 11:30:00 Outpatient SEGUNDO BARNES [id number] [facility] 2024-10-02 00:00:00 2024-10-02 00:00:00 [id number] [facility] 13:30:00 2024-09-28 13:30:00 Outpatient EBONI HEAD [id number] [facility] 2024-09-25 09:55:00 2024-09-25 09:55:00 Outpatient [id number] ANA PEREZ [id number] [facility] 2024-09-25 09:15:00 2024-09-25 09:15:00 Outpatient TRAE VALDEZSEY [id number] [facility] 2024-09-25 00:00:00 2024-09-25 00:00:00 Outpatient ALEXANDER ESPITIA ANA [id number] [facility] 2024-09-24 14:00:00 2024-09-24 14:00:00 Outpatient ANA ANA [id number] [facility] 2024-09-21 11:15:00 2024-09-21 11:15:00 Outpatient ANA ANA [id number] [facility] 2024-09-18 10:15:00 2024-09-18 10:15:00 Outpatient ALEXANDER ESPITIA ANA PEREZ [id number] [facility] 2024-09-18 00:00:00 2024-09-18 00:00:00 Outpatient ANA PEREZ [id number] [facility] 2024-09-13 13:15:00 2024-09-13 13:15:00 [facility] [id number] [facility]24-[facility]13 11:00:00 2024-09-13 11:00:00 Outpatient ANA ANA [id number] [facility] 2024-09-11 00:00:00 2024-09-11 00:00:00 Outpatient KAYLEY DILLON ANA PEREZ [id number] [facility] 2024-09-10 11:30:00 2024-09-10 11:30:00 Outpatient MEGAN SEGUNDO PEREZ [id number] [facility] 2024-09-07 00:00:00 2024-09-07 00:00:00 Outpatient ALEXANDER ESPITIA ANA PEREZ [id number] [facility] 2024-09-04 00:00:00 2024-09-04 00:00:00 Outpatient IVAN DARDEN [id number] [facility] 2024-09-03 10:00:00 2024-09-03 10:00:00 Outpatient TRAE VALDEZ ANA PEREZ [id number] [facility] 2024-09-03 00:00:00 2024-09-03 00:00:00 Outpatient REGI LEONARDO ANA PEREZ [id number] [facility] 2024-08-31 10:20:00 2024-08-31 10:20:00 Outpatient ANA PEREZ [id number] [facility] 2024-08-30 11:40:00 2024-08-30 11:40:00 Outpatient JOSE FENG ANA PEREZ [id number] [facility] 2024-08-30 11:15:00 2024-08-30 11:15:00 Outpatient KYALEY DILLON ANA PEREZ [id number] [facility] 2024-08-28 12:00:00 2024-08-28 12:00:00 Outpatient ANA PEREZ [id number] [facility] 2024-08-28 00:00:00 2024-08-28 00:00:00 [facility]ON[id number] [facility] 2024-08-28 00:00:00 2024-08-28 00:00:00 Outpatient MD ANA RODRIGUEZ [id number] [facility] 2024-08-23 14:00:00 2024-08-23 14:00:00 Outpatient ANA PEREZ [id number] [facility] 2024-08-22 11:00:00 2024-08-22 11:00:00 Outpatient TRAE VALDEZ [id number] [facility] 2024-08-21 13:00:00 2024-08-21 13:00:00 Outpatient KIM DHALIWAL [id number] [facility] 2024-08-19 00:00:00 2024-08-19 00:00:00 Outpatient TRAY HERNANDEZ [id number] [facility] 2024-08-15 13:30:00 2024-08-15 13:30:00 Outpatient EWA PEREZ [id number] [facility] 2024-08-15 13:30:00 2024-08-15 13:30:00 Outpatient EBONI HEAD [id number] [facility] 2024-08-14 09:30:00 2024-08-14 09:30:00 Outpatient TRAE VALDEZ ANA [id number] [facility] 2024-08-14 00:00:00 2024-08-14 00:00:00 Outpatient PREALEXANDER AGUSTIN ANA [id number] [facility] 2024-08-07 08:15:00 2024-08-07 08:15:00 Outpatient PREZAALEXANDER Barrientos ANA [id number] [facility] 2024-08-07 00:00:00 2024-08-07 00:00:00 Outpatient ANA PEREZ [id number] [facility] 2024-08-06 14:30:00 2024-08-06 14:30:00 Outpatient JOSHUAANDREA MEDINA ANA PEREZ [id number] [facility] 2024-08-03 00:00:00 2024-08-03 00:00:00 Outpatient ALEXANDER ESPITIA [id number] [facility] 2024-07-27 15:00:00 2024-07-27 15:00:00 Outpatient MEGANSEGUNDO ANA PEREZ [id number] [facility] 2024-07-27 11:20:00 2024-07-27 11:20:00 Outpatient [id number] ANA PEREZ [id number] [facility] 2024-07-25 00:00:00 2024-07-25 00:00:00 Outpatient ALEXANDER ESPITIA ANA [id number] [facility] 2024-07-17 00:00:00 2024-07-17 00:00:00 Outpatient MD ANA RODRIGUEZ [id number] [facility] 2024-07-16 15:35:00 2024-07-16 15:35:00 Outpatient [id number] ANA PEREZ [id number] [facility] 2024-07-16 14:30:00 2024-07-16 14:30:00 Outpatient ALEXANDER ESPITIA ANA PEREZ [id number] [facility] 2024-06-25 08:00:00 2024-06-25 08:00:00 Outpatient ALEXANDER ESPITIA [id number] [facility] 2023-11-30 17:10:57 2023-11-30 17:10:57 Outpatient SFA SFA [id number] Alexandre Gusman 2023-11-09 00:00:00 2023-11-09 11:47:00 Letter (Out) Campaigns, Generic Provider Campaigns, Generic Provider [facility] ([facility] [id number] [facility] 2023-10-27 13:21:00 2023-10-27 18:47:00 Emergency X ALEXANDRE SNYDER [facility] ERT [id number] [facility] 2023-10-27 13:21:00 2023-10-27 18:47:00 Emergency Alexandre Snyder [facility] [id number] [facility] 2023-10-18 12:39:00 2023-10-18 17:18:00 Emergency Carson Bae [facility] [id number] [facility] 2023-10-18 12:39:00 2023-10-18 17:18:00 Emergency X CARSON BAE GREGORY [facility] ERT [id number] [facility] Results Test Description Test Time Test Comments Results Result Co mments Source [facility] [id number] 19:25:37PROCEDURE: XR CHEST 1 10/27/2023 1:50 PM CLINICAL INDICATION: sob COMPARISON: Radiograph of 10/18/2023 FINDINGS: The lungs are clear. There is no pleural effusion. ?No pneumothorax. The cardiac size is normal. Left chest wall cardiac pacer leads overlyingright atrium and right ventricle. No aggressive osseous lesion. [facility] [id number] 21:43:24EXAM: XR CHEST 2 VW COMPARISON: None HISTORY: Stated history of pseudotumor cerebri, presented withdizziness. FINDINGS: Left chest wall pacemaker is noted, with leads terminating in the rightatrium and right ventricle. Lungs: The lungs are well expanded and clear. No focal opacity. No pleuralabnormality. Heart/Mediastinum: The cardiomediastinal silhouette is normal toborderline. Bones and soft tissues: No acute osseous abnormality is visualized.[facility] TERMINAL [id number] 20:34:21* Test Item Value Reference Range Interpretation Comme [facility] NT-proBNP (test code = 62289-6) 88 pg/mL <=125 Lab Interpretation (test cod e = 60737-2) Normal [facility] [id number] 20:34:21* Test Item Value Reference Range Interpretation Comme nts TROPONIN I (test code = 1828752876) 0.009 ng/mL <=0.034 YAMIL (test code = [...] of biotin. Lab Interpretation (test code = 34512-6) Normal [facility]OLIC PANEL (22244)2023-10-18 20:23:56* Test Item Value Reference Range Interpretation Comme nts NA (test code = 9941729859) 142 mmol/L 135-145 K (test code = 7269741276) 4.4 mmol/L 3.5-5.0 Slight hemolysis CL (test code = 2290849376) 109 mmol/L 98-108 H CO2 TOTAL (test code = 0096657814) 22 mmol/L 23-31 L AGAP (test code = 6470202636) 11 2-16 BUN (test code = 8717111968) 15 mg/dL 7-23 Slight hemolysis GLUCOSE (test code = 7144007034) 147 mg/dL 70-110 H CREATININE (test code = 2160-0) 0.87 mg/dL 0.50-1.04 TOTAL BILI (test code = 3824001551) 0.5 mg/dL 0.1-1.1 CALCIUM (test code = 1205987657) 8.6 mg/dL 8.6-10.6 T PROTEIN (test code = 2109558947) 7.0 g/dL 6.3-8.2 ALBUMIN (test code = 5632998147) 4.0 g/dL 3.5-5.0 ALK PHOS (test code = 8590558450) 74 U/L 34-122 Slight hemolysis ALTv (test code = 1742-6) 36 U/L 5-35 H AST(SGOT) (test code = 6900027483) 36 U/L 13-40 Slight hemolysis eGFR (test code = 16409-3) 83.9 mL/min/1.73m2 CKD-EPI eGFR (2020). Assuming creatinine has been stable day-to-day for at least three months, the eGFR indicates Category G2 (60 - 89 mL/min/1.73 m2) Lab Interpretation (test code = 44337-5) Abnormal [facility] WITH [id number] 20:13:16* Test Item Value Reference Range Interpretation [...] g/dL 31.6-35.1 L RDW-SD (test code = 86085-5) 60.7 fL 39.0-49.9 H RDW-CV (test code = 788-0) 20.3 % 12.0-15.5 H PLT (test code = 777-3) 227 166-358 MPV (test code = 54442-7) 9.7 fL 9.5-12.9 NRBC/100 WBC (test code = 3863381958) 0.0 0.0-10.0 NRBC x10^3 (test code = 1658234570) See_Comment [Automated messa ge] The system which generated this result transmitted reference range: 10*3/?L. The reference range was not used to interpret this result as normal/abnormal. GRAN MAT (NEUT) % (test code = 770-8) 60.7 % IMM GRAN % (test code = 0018946277) 0.70 % LYMPH % (test code = 736-9) 30.5 % MONO % (test code = 5905-5) 5.3 % EOS % (test code = 713-8) 2.3 % BASO % (test code = 706-2) 0.5 % GRAN MAT x10^3(ANC) (test code = 8268446883) 3.40 10*3/uL 1.88-7.09 IMM GRAN x10^3 (test code = 4812052528) 0.04 10*3/uL 0.00-0.06 LYMPH x10^3 (test code = 731-0) 1.71 10*3/uL 1.32-3.29 MONO x10^3 (test code = 742-7) 0.30 10*3/uL 0.33-0.92 L EOS x10^3 (test code = 711-2) 0.13 10*3/uL 0.03-0.39 BASO x10^3 (test code = 704-7) 0.03 10*3/uL 0.01-0.07 Lab Interpretation (test code = 80580-2) Abnormal [facility] HospitalCT [facility] [id number] 19:45:09CT HEAD WO CONTRAST HISTORY: Dizziness, persistent/recurrent, [...] clear. Thecalvarium and central skull base are unremarkable.[facility] Notes Date/Time Note Provider Source Referral ID Status Reason Start Date Expiration Date Visits Requested Visits Authorized [id number] Authorized Specialty Services Required 07/16/2024 10/14/2024 1 1 [facility]2025-09-08 17:03:51* Segundo Barnes MD - 10/22/2024 2:44 PM CDT Images from the original note were not included. Patient and patient’s participants in attendance, if any, consented to the use of HomeStay ([employer]), a new technology product that uses artificial [...] hospitalized multiple times for asthma, both in [place] and [place]. He has never smoked. He uses Breztri (2 puffs twice daily) and Airsupra as needed, along with a nebulizer. He was previously on daytime oxygen therapy in [place] and used a sleep apnea mask at night. His doctor recommended portable oxygen therapy. He has a pacemaker and congestive heart failure and is under the care of a associate professor of literature. SOCIAL HISTORY Tobacco: The patient does not [...] Insecurity: Food Insecurity Present (04/06/2023) Received from [facility] Hunger Vital Sign Within the past 12 months, you worried that your food would run out before you got the money to buy more.: Sometimes true Within the past 12 months, the food you bought just didn't last and you didn't have money to get more.: Often true Transportation Needs: No Transportation Needs (04/06/2023) Received from [facility] PRAPARE - Transportation Lack of Transportation (Medical): No Lack of Transportation (Non-Medical): No Physical Activity: Not on file Stress: Not on file Social Connections: Not on file Intimate Partner Violence: Not on file Housing Stability: High Risk (04/06/2023) Received from [facility] Housing Stability Vital Sign Unable to Pay [...] visit. LABS Latest Ref Rng & Units 59:59 AM 07/27/2024 11:23 AM ILD / ASTHMA [...] total) by mouth nightly. 100 tablet 3 Tksngiy-Aoayezrwdna-Bigxbxbjsj (Breztri Aerosphere) 160-9-4.8 MCG/ACT inhalation Aerosol Inhale [...] No current facility-administered medications for this visit. [facility]2025-09-08 17:03:51Upcoming Encounters Scheduled Orders Name Type Priority [...] Vaccines (1 - 1-dose 75+ series) 2053 [facility]2025-09-08 17:03:51 Diagnosis NOEL (obstructive sleep apnea) - Primary Obstructive sleep apnea (adult) (pediatric) Severe persistent asthma wit hout complication (multi HCC) Chronic respiratory failure with hypoxia (multi HCC) Chronic respiratory failure Chest pain, unspecified type [facility]2025-09-08 17:03:51 [facility]2025-09-08 15:26:26 PPO ordered. Patient completed first part [...] EKG and PPO. Patient cleared to leave. [facility]2025-09-08 15:25:32 6 minute walk completed. Pre O2 [...] pain, No Calf pain, No Leg pain. [facility]68[facility]44 14:18:19 Chief Complaint Patient presents with Consultation NOEL/CPAP, asthma, chronic respiratory failure with hypoxia. Radha Wilhelm LVN Radha Wilhelm MeghaCol[facility]azEl[facility] CenterGeoqof4943-99-60 11:35:14* Consultation (Routine) - Authorized Specialty Diagnoses / Procedures Referred By Jammie leonardo Referred To Contact Internal Medicine-Gastroenterol ogy Diagnoses Rectal bleeding Screen for colon cancer Chronic constipation Hemorrhoids, unspecified hemorrhoid type Procedures OFFICE/OUTPATIENT [facility] 60 MINUTES Alexander Espitia DO [address] [place] [address] Phone: tel: fax: Rupesh Oh MD [address] [place] [address] Phone: tel: fax: Referral ID Status Reason Start Date Expiration Date Visits Requested Visits Authorized [id number] Authorized Provider Preference 09/18/2024 12/17/2024 1 [facility] [id number] 11:35:14* [facility] Dtyobu7858-12-47 11:35:14* Patient Instructions* Alexander Espitia DO - 09/18/2024 11:35 AM CDT 1. Type 2 Diabetes Mellitus. - Currently taking metformin 500 mg twice a day and Jardiance 10 mg daily. - Refill Ozempic 0.25 mg subcu weekly. This will be sent to a different pharmacy. Apparently was on backorder at [facility]. - A1c was 7.9 on 07/27/2024; expected [...] carvedilol 25 mg will be sent to [facility] in [place]. 5. Pacemaker with History of Sick Sinus Syndrome. - Cardiology sent referral to manufactured buildings repairer to further evaluate and address. - No immediate concerns noted. 6. Chronic Respiratory Failure with Hypoxia. - Using Airsupra as needed and Breztri. - Patient to establish care with pulmonology soon. Await recommendations. 7. Hypothyroidism. - Compliance with medication addressed in detail. Continue levothyroxine 50 mcg daily. Prescription sent to pharmacy. 8. Idiopathic Intracranial Hypertension. - Previously on acetazolamide, switched to Lasix by associate professor of literature. - Message will be sent to neurologist [...] through Care Everywhere. * Adult Advisor: Hemorrhoids (Uzbek) * Adult Advisor: Constipation (Uzbek) [facility]2025-08-05 11:35:14* Alexander Espitia DO - 09/18/2024 10:15 AM CDT Patient and patient’s participants in attendance, if any, consented to the use of HomeStay ([employer]), a new technology product that uses artificial [...] on acetazolamide, which was discontinued by her associate professor of literature and replaced with Lasix. Despite this change, [...] on metformin 500 mg twice daily and Noiezqmou63 mg. She was unable to tolerate Trulicity [...] CPAP for sleep apnea. She saw the bone puller for fibromyalgia and received a trigger point [...] ReviewedAcute on chronic CHF -[facility] EF -Has LE edema and [...] intractable 10. Moderate persistent asthma without complication ([facility]) 11. NOEL on CPAP 12. Morbid obesity ([facility]-H[facility]) 13. Rectal bleeding- REFERRAL TO GASTROENTEROLOGY- EXTERNAL [...] different pharmacy. Apparently was on backorder at [facility]. - A1c was 7.9 on 07/27/2024; expected [...] carvedilol [facility] [place]. 5. Pacemaker with History of Sick Sinus Syndrome.- Cardiology sent referral to manufactured buildings repairer to further evaluate and address. - No immediate concerns noted. 6. Chronic Respiratory Failure with Hypoxia.- Using Airsupra as needed and Breztri. - Patient to establish care with pulmonology soon. Await recommendations. 7. Hypothyroidism.- Compliance with medication addressed in detail. Continue levothyroxine 50 mcg daily. Prescription sent to pharmacy. 8. Idiopathic Intracranial Hypertension.- Previously on acetazolamide, switched to Lasix by associate professor of literature. - Message will be sent to neurologist [...] Albuterol-Budesonide (AIRSUPRA IN) Inhale into the lungs. Rohoqit-Kfzsggpiozn-Lmqzfgkmrt (Breztri Aerosphere) 160-9-4.8 MCG/ACT inhalation Aerosol Inhale [...] visit.[2] Past Medical History: Diagnosis Date Asthma ([facility]-HCC) [...] Food Insecurity: Food Insecurity Present (04/06/2023)Received from [facility] Hunger Vital Sign Worried About Running Out of Food in the Last Year: Sometimes true Ran Out of Food in the Last Year: Often true Transportation Needs: No Transportation Needs (04/06/2023) Received from [facility] PRAPARE - Transportation Lack of Transportation (Medical): No Lack of Transportation (Non-Medical): No Housing Stability: High Risk (04/06/2023) Received from [facility] Housing Stability Vital Sign Unable to Pay for Housing in the Last Year: Yes Number of Places Lived in the Last Year: 1 Unstable Housing in the Last Year: No Jorden PerezEstefany Yuxhfh9781-31-77 11:35:14Upcoming Encounters Scheduled Referrals Name Type Priority [...] PCV) 03/17/2022 03/17/2021 COVID-19 Vaccine ( - 2023- season) 2023 Influenza Vaccines (#1) 2024 Diabetes: Hemoglobin A1C 10/27/2024 07/27/2024 Mammogram 02/10/2025 02/10/2023 Creatinine Level (Kidney Function Test) 07/27/2025 0 07/27/2024 Diabetes: Urine Protein Screening 07/27/2025 025 Lipid Panel 07/27/2025 07/27/2024 RSV Vaccines (1 - 1-dose 75+ series) 2053 [facility]2025-08-05 11:35:14 Diagnosis DM type 2 with diabetic [...] not intractable Moderate persistent asthma without complication ([facility]-H[facility]) Unspecified asthma NOEL on CPAP Obstructive sleep apnea (adult) (pediatric) Morbid obesity ([facility]) Morbid obesity Rectal bleeding Hemorrhage of rectum and anus Screen for colon cancer Special screening for malignant neoplasms, colon Chronic constipation Unspecified constipation Hemorrhoids, unspecified hem orrhoid type History of sick sinus syndrome Personal history of other diseases of circulatory system [facility]2025-08-05 11:35:14 [place] 974185-08-05 10:27:21 Chief Complaint Patient presents with Routine Follow-up Patient is present to follow up on multiple appointments she has been to. Patient would like to address her Lasix, Patient is having blood after a bowel movement. Raffy Chen MA [facility]2025-07-17 11:38:37 Chief Complaint Patient presents with Follow-up OTHER Nonintractable paroxysmal hemicrania, unspecified chronicity pattern TPI Height 5'2 per pt Arturo East MA T [facility]2025-07-17 10:50:43 Chief Complaint Patient presents with Consultation Patient has been referred by due to Idiopathic intracranial HTN and Migraine. Caity Good MA T [facility]2025-07-08 13:03:31 Chief Complaint Patient presents with Consultation Joint pain fibromyalgia Alondra Brandon MA T [facility]2025-06-24 08:05:34 Chief Complaint Patient presents with OTHER Patient is present to follow up on labs Raffy Chen MA T [facility]2024-09-12 18:27:00 Patient given printed and verbal discharge [...] in possession of all belongings. Celina Mcdermott [facility] 13:16:40 Makeda Bach is a 43 year [...] Pt to room for eval Brooklynn Baird [facility]ynpd8195-38-62 17:11:43 Patient discharged with steady gait alert and oriented x 4 with discharge instructions no further questions asked Juan Jose Brandon [facility] HospitalBvmqjt5003-24-40 14:26:[address] [facility] HospitalSlsbvd0934-54-73 12:35:53 Makeda Bach is a 43 year old female presenting to ED with c/o headache. Patient reports has been ongoing x4 months. Patient states that she is from [place] and states that she was diagnosed with a "pseudotumor" which is causing pain down her neck and migraines. Patient to green chairs due to ED saturation [facility]
[2024-11-07 16:34] LABS: Absolute Lymphocytes (CBC) 1.1 K/uL (0.7-4.9); Hematocrit 38.6 % (36.0-45.0); Hemoglobin 12.7 g/dL (12.0-15.0); MCH 26.4 pg (27.0-35.0); MCHC 32.8 g/dL (32.0-36.0); MCV 80.6 fL (80-100); MPV 7.4 fL (7.6-11.3); Nucleated RBC Absolute Count 0.0 (0-0); Nucleated Red Blood Cells % 0.2 % (0-0); RBC Red Blood Cell Count 4.79 M/uL (3.86-4.86); White Blood Count 5.00 thou/uL (4.3-10.9)
[2024-11-07 16:40] LABS: PT Prothrombin Time 12.5 SECONDS (10-13.0); Protime INR 1.11
--- NOTE | 2024-11-07 17:26 | RAD REPORT ---
EXAMINATION: ONE VIEW CHEST XR CLINICAL INDICATION: Female, 44 years old.,COUGH TECHNIQUE: Frontal chest projection is submitted. Examination is limited by patient positioning and t echnique. COMPARISON: 08/22/2024 FINDINGS: The lungs are well inflated and clear. No pneumothorax or sizable effusion. The heart is upper limit of normal in size. Mediastinal contours are unremarkable. Left chest wall pacer in place. IMPRESSION: No acute intrathoracic abnormalities.
[2024-11-07] MEDS ORDERED: LIDOCAINE 1% 20 ML MDV ONE (18:05)
--- NOTE | 2024-11-07 18:42 | ER ---
Nurse's Notes [facility] Name: Ninoska Bach Age: 44 yrs Sex: Female : 1980 Arrival Date: 11/07/2024 Time: 15:42 Bed DIS5 Private MD: Diagnosis: Headache;Benign intracranial hypertension;Essential (primary) hypertension Presentation: 11/07 16:00 Chief complaint: Patient states: C/O high BP, headache, and dizziness that began 1 hour ar8 ago. 16:00 Coronavirus screen: At this time, the client does not indicate any symptoms associated ar8 with coronavirus-19. Ebola Screen: No symptoms or risks identified at this time. Initial Sepsis Screen: Does the patient meet any 2 criteria? No. Patient's initial sepsis screen is negative. Does the patient have a suspected source of infection? No. Patient's initial sepsis screen is negative. Risk Assessment: Do you want to hurt yourself or someone else? Patient reports no desire to harm self or others. Onset of symptoms was November 07, 2024 at 15:00. 16:00 Method Of Arrival: EMS: [facility] ar8 16:00 Acuity: MONSERRAT 3 ar8 Triage Assessment: 16:12 General: Appears uncomfortable, Behavior is cooperative, flat. Pain: Complains of pain ar8 in occipital area Pain currently is 10 out of 10 on a pain scale. Pain began 1 hour ago. Pain: Pain began x1 wk. Neuro: Level of Consciousness is awake, alert, obeys commands, Oriented to person, place, time, situation, Rn Clinical Research are equal bilaterally Moves all extremities. Full function Gait is unsteady, Reports dizziness, headache occipital area. Cardiovascular: Patient's skin is warm and dry. Respiratory: Airway is patent Trachea midline Respiratory effort is even, unlabored, Respiratory pattern is regular, symmetrical. GI: No signs and/or symptoms were reported involving the gastrointestinal system. : No signs and/or symptoms were reported regarding the genitourinary system. Derm: No signs and/or symptoms reported regarding the dermatologic system. Musculoskeletal: No signs and/or symptoms reported regarding the musculoskeletal system. Historical: - Allergies: 16:12 Compazine; ar8 16:12 Iodine; ar8 16:12 SHELLFISH; ar8 - Home Meds: 16:12 amlodipine 10 mg tablet 1 tab once [Active]; atorvastatin oral [Active]; metformin 500 ar8 mg Oral tablet 1 tab 2 times per day [Active]; furosemide 20 mg Oral tablet 1 tab daily [Active]; carvedilol 12.5 mg Oral tablet 1 tab 2 times per day [Active]; - PMHx: 16:12 Bronchitis; Congestive heart failure; COPD; Degenerative disc disease; diabetes ar8 mellitus; Hypertension; Migraine; pseudotumor; Seizure; Seizure; Sleep Apnea; - PSHx: 16:12 Cholecystectomy; kidney stent; pacemaker; Total abdominal hysterectomy; ar8 - Immunization history:: Adult Immunizations not up to date. - Infectious Disease History:: Denies. - Social history:: Smoking status: Patient denies any tobacco usage or history of. Screenin:[address] [facility] ED Fall Risk Assessment (Adult) History of falling in the last 3 months, ar8 including since admission No falls in past 3 months (0 pts) Confusion or Disorientation No (0 pts) Intoxicated or Sedated No (0 pts) Impaired Gait No (0 pts) Mobility Assist Device Used No (0 pt) Altered Elimination No (0 pt) Score/Fall Risk Level 0 - 2 = Low Risk Oriented to surroundings, Maintained a safe environment. Abuse screen: Denies threats or abuse. Nutritional screening: No deficits noted. Tuberculosis screening: No symptoms or risk factors identified. Assessment: 16:00 Reassessment: See triage assessment. ar8 Vital Signs: 16:00 BP 142 / 84; Pulse 79; Resp 16; Pulse Ox 96% on R/A; Weight 133.36 kg; Height 5 ft. 2 ar8 in. ; Pain 10/10; 16:30 BP 138 / 88; Pulse 77; Resp 17; Pulse Ox 97% ; ar8 17:30 BP 126 / 45; Pulse 78; Resp 22; Pulse Ox 98% on R/A; ar8 18:45 BP 158 / 92; Pulse 77; Resp 18; Pulse Ox 100% ; Pain 10/10; ar8 19:07 Pain 6/10; ar8 16:00 Body Mass Index 53.77 (133.36 kg, 157.48 cm) ar8 16:00 Pain Scale: Adult ar8 18:45 Pain Scale: Adult ar8 19:07 Pain Scale: Adult ar8 Edna Coma Score: 17:32 Eye Response: spontaneous(4). Motor Response: obeys commands(6). Verbal Response: atif oriented(5). Total: 15. ED Course: 15:44 Patient arrived in ED. ll1 15:59 Vadim Esquivel MD is Attending Physician. atif 16:10 Luis Alberto Martinez, RN is Primary Nurse. ar8 16:12 Triage completed. ar8 16:12 Arm band placed on left wrist. ar8 16:15 Bed in low position. Call light in reach. Side rails up X2. Provided Education on: plan ar8 of care. 16:15 No provider procedures requiring assistance completed. Maintain EMS IV. Dressing ar8 intact. Good blood return noted. Site clean \T\ dry. Gauge \T\ site: 20G R FA. Flushed with 10 mL NS. 16:35 EKG done, by ED staff, reviewed by Vadim Esquivel MD. ts3 16:35 Initial lab(s) drawn, by solar lab technician, sent to lab. ts3 17:14 XRAY Chest (1 view) In Process Unspecified. EDMS 18:39 Jesus Bianchi MD is Referral Physician. atif 19:07 IV discontinued, intact, bleeding controlled, No redness/swelling at site. Pressure ar8 dressing applied. Administered Medications: 18:52 Drug: Ondansetron IVP 8 mg IVP once; over 2 minutes Route: IVP; Site: right forearm; ar8 19:07 Follow up: Response: No adverse reaction ar8 18:54 Drug: morphine IVP or IV 4 mg IVP once over 4 mins Route: IVP; Infused Over: 4 mins; ar8 Site: right forearm; 19:07 Follow up: Pain 6/10 Adult; Response: No adverse reaction; Pain is decreased ar8 18:55 Drug: Diazepam PO 5 mg PO once Route: PO; ar8 19:07 Follow up: Response: No adverse reaction; Marked relief of symptoms ar8 19:37 Not Given (Physician Discretion): ns 0.9% 500 ml 500 ml IV at 1 bolus once; to be given ar8 as a bolus over 30 minutes Medication: 16:00 VIS not applicable for this client. ar8 Outcome: 18:42 Discharge ordered by . atif 19:07 Discharged to home via wheelchair, ar8 19:07 Condition: stable ar8 19:07 Discharge instructions given to patient, significant other, Instructed on discharge instructions, follow up and referral plans. medication usage, Demonstrated understanding of instructions, follow-up care, medications, Prescriptions given X 2, 19:38 Patient left the ED. ar8 Signatures: Dispatcher [employer] EDVadim Gipson MD MD cha Lewis, Lynsay, RN RN ll1 Lyssa Mattson 3 Luis Alberto Martinez RN RN ar8
--- NOTE | 2024-11-07 18:42 | EDPHYS ---
Physician Documentation [facility] Name: Ninoska Bach Age: 44 yrs Sex: Female : 1980 Arrival Date: 11/07/2024 Time: 15:42 Bed DIS5 Private MD: ED Physician Vadim Esquivel HPI: 11/07 17:29 This 44 yrs old Black Female presents to ER via EMS with complaints of High Blood atif Pressure. 17:29 The patient has elevated blood pressure and discovered this at home, with a home atif device. Onset: The symptoms/episode began/occurred 2 day(s) ago. Modifying factors: The symptoms are aggravated by activity, The symptoms are alleviated by remaining still. Associated signs and symptoms: The patient has no apparent associated signs or symptoms. Severity of symptoms: At its worst the blood pressure was mild, moderate, in the emergency department the blood pressure is unchanged. The patient has experienced similar episodes in the past, multiple times. Historical: - Allergies: 16:12 Compazine; ar8 16:12 Iodine; ar8 16:12 SHELLFISH; ar8 - Home Meds: 16:12 amlodipine 10 mg tablet 1 tab once [Active]; atorvastatin oral [Active]; metformin 500 ar8 mg Oral tablet 1 tab 2 times per day [Active]; furosemide 20 mg Oral tablet 1 tab daily [Active]; carvedilol 12.5 mg Oral tablet 1 tab 2 times per day [Active]; - PMHx: 16:12 Bronchitis; Congestive heart failure; COPD; Degenerative disc disease; diabetes ar8 mellitus; Hypertension; Migraine; pseudotumor; Seizure; Seizure; Sleep Apnea; - PSHx: 16:12 Cholecystectomy; kidney stent; pacemaker; Total abdominal hysterectomy; ar8 - Immunization history:: Adult Immunizations not up to date. - Infectious Disease History:: Denies. - Social history:: Smoking status: Patient denies any tobacco usage or history of. ROS: 17:30 Constitutional: Negative for fever, chills, and weight loss, Eyes: Negative for injury, atif pain, redness, and discharge, ENT: Negative for injury, pain, and discharge, Neck: Negative for injury, pain, and swelling, Cardiovascular: Negative for chest pain, palpitations, and edema, Respiratory: Negative for shortness of breath, cough, wheezing, and pleuritic chest pain, Abdomen/GI: Negative for abdominal pain, nausea, vomiting, diarrhea, and constipation, Back: Negative for injury and pain, : Negative for injury, bleeding, discharge, and swelling, MS/Extremity: Negative for injury and deformity, Skin: Negative for injury, rash, and discoloration, Psych: Negative for depression, anxiety, suicide ideation, homicidal ideation, and hallucinations, Allergy/Immunology: Negative for hives, rash, and allergies, Endocrine: Negative for neck swelling, polydipsia, polyuria, polyphagia, and marked weight changes, Hematologic/Lymphatic: Negative for swollen nodes, abnormal bleeding, and unusual bruising, 17:30 Neuro: Positive for headache, Exam: 17:30 Constitutional: This is a well developed, well nourished patient who is awake, alert, atif and in no acute distress. Head/Face: Normocephalic, atraumatic. Eyes: Pupils equal round and reactive to light, extra-ocular motions intact. Lids and lashes normal. Conjunctiva and sclera are non-icteric and not injected. Cornea within normal limits. Periorbital areas with no swelling, redness, or edema. ENT: Nares patent. No nasal discharge, no septal abnormalities noted. Tympanic membranes are normal and external auditory canals are clear. Oropharynx with no redness, swelling, or masses, exudates, or evidence of obstruction, uvula midline. Mucous membranes moist. Neck: Trachea midline, no thyromegaly or masses palpated, and no cervical lymphadenopathy. Supple, full range of motion without nuchal rigidity, or vertebral point tenderness. No Meningismus. Chest/axilla: Normal chest wall appearance and motion. Nontender with no deformity. No lesions are appreciated. Cardiovascular: Regular rate and rhythm with a normal S1 and S2. No gallops, murmurs, or rubs. Normal PMI, no JVD. No pulse deficits. Respiratory: Lungs have equal breath sounds bilaterally, clear to auscultation and percussion. No rales, rhonchi or wheezes noted. No increased work of breathing, no retractions or nasal flaring. Abdomen/GI: Soft, non-tender, with normal bowel sounds. No distension or tympany. No guarding or rebound. No evidence of tenderness throughout. Back: No spinal tenderness. No costovertebral tenderness. Full range of motion. Female : Normal external genitalia. Skin: Warm, dry with normal turgor. Normal color with no rashes, no lesions, and no evidence of cellulitis. MS/ Extremity: Pulses equal, no cyanosis. Neurovascular intact. Full, normal range of motion., bilateral aka Neuro: Awake and alert, GCS 15, oriented to person, place, time, and situation. Cranial nerves II-XII grossly intact. Motor strength 5/5 in all extremities. Sensory grossly intact. Cerebellar exam normal. Normal gait. Psych: Awake, alert, with orientation to person, place and time. Behavior, mood, and affect are within normal limits. 17:30 Cardiovascular: Rate: normal, actual rate is 70 bpm, Rhythm: regular, Pulses: no pulse deficits are appreciated, Heart sounds: normal, normal S1and S2, no S3 or S4, no murmur, no rub, no gallop, Edema: is not appreciated, JVD: is not appreciated, 17:30 ECG was reviewed by the Attending Physician. Vital Signs: 16:00 BP 142 / 84; Pulse 79; Resp 16; Pulse Ox 96% on R/A; Weight 133.36 kg; Height 5 ft. 2 ar8 in. ; Pain 10/10; 16:30 BP 138 / 88; Pulse 77; Resp 17; Pulse Ox 97% ; ar8 17:30 BP 126 / 45; Pulse 78; Resp 22; Pulse Ox 98% on R/A; ar8 18:45 BP 158 / 92; Pulse 77; Resp 18; Pulse Ox 100% ; Pain 10/10; ar8 19:07 Pain 6/10; ar8 16:00 Body Mass Index 53.77 (133.36 kg, 157.48 cm) ar8 16:00 Pain Scale: Adult ar8 18:45 Pain Scale: Adult ar8 19:07 Pain Scale: Adult ar8 [place] Coma Score: 17:32 Eye Response: spontaneous(4). Motor Response: obeys commands(6). Verbal Response: atif oriented(5). Total: 15. MDM: 15:59 Medical Screening Exam initiated atif 17:32 Differential diagnosis: hypertensive crisis, Malignant HTN, CVA. Data reviewed: vital atif signs, nurses notes, lab test result(s), EKG, radiologic studies, CT scan, plain films. Consideration of Admission/Observation Patient was admitted/placed on observation. Escalation of care including admission/observation considered. I considered the following discharge prescriptions or medication management in the emergency department Medications were administered in the Emergency Department. See MAR. Independent interpretation of the following test(s) in the Emergency Department EKG: See my EKG interpretation above. Test considered but Not performed: MRI: NO MRI PACEMAKER, DEFIB. Historians other than the Patient: Spouse/Significant Other: WELL INFORMED. Care significantly affected by the following chronic conditions: Diabetes, Hypertension, Congestive Heart Failure, Obesity, BENIGN INTRACRANIAL HYPERTENSION. 11/07 16:00 Order name: Basic Metabolic Panel [facility] 11/07 16:00 Order name: CBC with Diff 11/07 16:00 Order name: LFT's [facility] 11/07 16:00 Order name: Magnesium [facility] 11/07 16:00 Order name: NT PRO-BNP [facility] 11/07 16:00 Order name: PT-INR [facility] 11/07 16:00 Order name: Troponin HS 11/07 16:00 Order name: XRAY Chest (1 view) [facility] 11/07 16:00 Order name: EKG; Complete Time: 16:01 11/07 16:00 Order name: Cardiac monitoring; Complete Time: 16:35 11/07 16:00 Order name: EKG - Nurse/Tech; Complete Time: 16:15 11/07 16:00 Order name: IV Saline Lock; Complete Time: 16:15 11/07 16:00 Order name: Labs collected and sent; Complete Time: 16:35 11/07 16:00 Order name: O2 Per Protocol; Complete Time: 16:35 11/07 16:00 Order name: O2 Sat Monitoring; Complete Time: 16:35 [facility] 11/07 16:41 Order name: Labs - recollect needed: recollect tall light green top; Complete Time: bd 18:48 EC:30 Rate is 70 beats/min. Rhythm is regular. QRS [place] is Normal. MS interval is normal. QRS atif interval is normal. QT interval is normal. No Q waves. T waves are Normal. No ST changes noted. Clinical impression: NSR w/ Non-specific ST/T Changes and No evidence of ischemia. Interpreted by me. Reviewed by me. Administered Medications: 18:52 Drug: Ondansetron IVP 8 mg IVP once; over 2 minutes Route: IVP; Site: right forearm; ar8 19:07 Follow up: Response: No adverse reaction ar8 18:54 Drug: morphine IVP or IV 4 mg IVP once over 4 mins Route: IVP; Infused Over: 4 mins; ar8 Site: right forearm; 19:07 Follow up: Pain 07/24 Adult; Response: No adverse reaction; Pain is decreased ar8 18:55 Drug: Diazepam PO 5 mg PO once Route: PO; ar8 19:07 Follow up: Response: No adverse reaction; Marked relief of symptoms ar8 19:37 Not Given (Physician Discretion): ns 0.9% 500 ml 500 ml IV at 1 bolus once; to be given ar8 as a bolus over 30 minutes Disposition Summary: 11/07/24 18:42 Discharge Ordered Notes: Location: Home atif Problem: new atif Symptoms: have improved atif Condition: Stable atif Diagnosis - Headache atif - Benign intracranial hypertension atif - Essential (primary) hypertension atif Followup: atif - With: Private Physician - When: 2 - 3 days - Reason: Recheck today's complaints, Continuance of care, Re-evaluation by your physician Followup: atif - With: Jesus Bianchi MD - When: 2 - 3 days - Reason: Recheck today's complaints, Re-evaluation by your physician Discharge Instructions: - Discharge Summary Sheet atif - Hypertension, Adult atif - Hypertension, Adult, [id number] atif - How to Take Your Blood Pressure, [id number] atif - Managing Your Hypertension atif Forms: - Medication Reconciliation Form atif - Antibiotic Education atif - Prescription Opioid Use atif - Patient Portal Instructions atif - Leadership Thank You Letter [facility] Prescriptions: - ondansetron 4 mg Oral Tablet,disintegrating - take 1 tablet ORAL route every 6 hours as needed for nausea and vomiting; 20 atif tablet; Refills: 0, Product Selection Permitted - Tylenol-Codeine #3 300mg-30mg Oral tablet - take 2 tablets ORAL route every 6 hours As needed; 20 tablet; Refills: 0, atif Product Selection Permitted Signatures: Dispatcher [employer] EDMS Tram Bro Corey, MD MD cha Rodriguez, Andrea, RN RN ar8 Corrections: (The following items were deleted from the chart) 16:02 16:01 BASIC METABOLIC PANEL+C.LAB.BRZ ordered. EDMS EDMS 16:02 16:01 CBC+H.LAB.BRZ ordered. EDMS EDMS 16:02 16:01 HEPATIC FUNCTION+C.LAB.BRZ ordered. EDMS EDMS 16:02 16:01 MAGNESIUM+C.LAB.BRZ ordered. EDMS EDMS 16:02 16:01 PROBNP+C.LAB.BRZ ordered. EDMS EDMS 16:02 16:01 PROTIME (+INR)+COAG.LAB.BRZ ordered. EDMS EDMS 16:02 16:01 Troponin High Sensitivity+C.LAB.BRZ ordered. EDMS EDMS 16:02 16:01 UA Rfx Han Cult if indicated+U.LAB.BRZ ordered. EDMS EDMS 16:06 16:01 MR STROKE PROTOCOL+MRI.RAD.BRZ ordered. EDMS EDMS 18:36 16:06 Brain Wo Cont ordered. EDMS EDMS 19:37 17:28 LP Setup ordered. atif ar8 19:37 17:28 LP Consents ordered. atif ar8
[2024-11-07] MEDS ORDERED: ONDANSETRON 4 MG/2 ML VIAL ONE (18:50)
[2024-11-07] MEDS ORDERED: MORPHINE 4 MG/ML SYR ONE (18:50)
[2024-11-07] MEDS ORDERED: DIAZEPAM 5 MG TABLET ONE (18:50)
[2024-11-07 18:51] LABS: NT PRO-BNP 23.0 pg/mL (<125); Troponin High Sensitivity 4.6 pg/mL (<58.9)
[2024-11-07 18:54] LABS: Potassium 3.9 mEq/L (3.5-5.1)
[2024-11-07 18:55] LABS: ALT/SGPT 30.0 U/L (13-56); AST/SGOT 16.0 U/L (15-37); Alkaline Phosphatase 87.0 U/L (45-117); Anion Gap 15.0 mEq/L (5.0-15.0); BUN Blood Urea Nitrogen 9.0 mg/dL (7-18); Bilirubin Indirect, Calculated 0.3 mg/dL (0.2-0.8); Glucose Level 122.0 mg/dL (74-106)
[2024-11-07 18:56] LABS: Albumin 3.0 g/dL (3.4-5.0); Albumin/Globulin Ratio 0.7 (1.1-1.8); Globulin 4.3 g/dL (2.3-3.5); Magnesium 1.9 mg/dL (1.6-2.4)
[2024-11-07 20:32] VITALS: BP 158/92; O2SAT 100
== END 2024-11-07 19:38 | disposition home or self-care (01) ==
LOC: ER 15:42
DX: G93.2 Benign intracranial hypertension (principal); I10 Essential (primary) hypertension; Z95.0 Presence of cardiac pacemaker
CPT/HCPCS: 93005; 85025; 80048; 36415; 83735; 85610; 80076; 84484; 83880; 71045; 96375; 96374; 99284; J2003; J2405

== ENCOUNTER 2024-11-13 18:42 | Emergency (ER) | payer OTHER ==
--- OUTSIDE RECORDS SUMMARY | 2024-11-13 18:47 | XMS REPORT | Continuity of Care Document ---
Author Name Unknown Address [address] [place] [address] [facility] Address [address] [place] [address] Care Team Providers Care Incident Manager Name Role Phone Pcp, Patient Does [...] Clinician Unavailable EBONI HEAD Attending Clinician Unavailable [id number] Attending Clinician Unavailable TRAE VALDEZ Attending Clinician Unavaila IVAN Pearson Attending Clinician Lissa jaz GAN MD Attending Clinician Unavailab TRAY Self Attending Clinician Unavailable ANDREA PRINCE Attending Clinician Unavailab Katelyn Lyles Attending Clinician Unavailable ALEXANDRE SNYDER Attending Clinician Unavaila ALEXANDRE Hidalgo Attending Clinician UnavailAlexandre Pichardo MD Attending Clinician Carson Bae MD Attending Clinician [phone] CARSON BAE Attending Clinician Unavailable CARSON BAE Attending Clinician Unavailable ADAM RHODES Admitting Clinician Unavailbob e CARSON BAE Admitting Clinician Unavailable Payers Payer Name Policy Type Policy Number Effective Date Expirati on Date Source [facility] JENIFER BONNER FOCUS 9 [id number] 2024 00:00:00 Problems Condition Name Condition Details [...] s Active Anaphylaxis 2023-0 9-03 00:00: 00 [facility] PROCHLOR PERAZINE DRUG INGREDI Active Anaphylaxis 0 9-03 00:00: 00 [facility] SHELLFIS H DERIVED DRUG INGREDI Active Anaphylaxis 0 9-03 00:00: 00 [facility] IODINE DRUG INGREDI Active Anaphylaxis 0 9-03 00:00: 00 [facility] Prochlor perazine Propensi ty to adverse reaction s Active Anaphylaxis 0 9-03 00:00: 00 [facility] Iodine Propensi ty to adverse reaction s Active Anaphylaxis 0 9-03 00:00: 00 [facility] Compazin e Propensi ty to adverse reaction s Active Anaphylaxis, Hives, Itching 2019-0 3-07 00:00: 00 Ana Saucedoybold - Externa l Prochlor perazine Edisylat e Propensi ty to adverse reaction s Active Anaphylaxis, Swelling 2018-0 8-27 00:00: 00 Throat swelling Ana Krishnaold - Externa l Azilsart an-Chlor thalidon e Propensi ty to adverse reaction s Active Swelling 2018-0 4-16 00:00: 00 Swelling of throat Ana Seybold - Externa l Shellfis h-Derive d Products Allergy Active Anaphylaxis 2016-02 2-06 00:00: 00 Ana Saucedoybold - Externa l NO KNOWN ALLERGIE S Drug Class Active [facility] Social History Social Habit Start Date Stop Date Quantity Comments Source ASSERTION Not Ana Allison - External Sexual orientation Devorah Allison - External Gender identity Tara Allison - External Alcoholic beverage intake 2024-11-07 00:00:00 2024-11-07 00:00:00 Current drinker of alcohol (finding) Ana [...] assigned at 1980 00:00:00 1980 00:00:00 Ana Allison - External Smoking Status Start Date Stop Date Source Tobacco smoking consumption unknown [facility] Never smoked tobacco Ana Allison - External Medications Ordered Medication Name Filled Medication Name Start Date Stop Date Current Medication? Ordering Clinician Indication Dosage Frequency Signature (SIG) Comments Components Source Isosorbide Mononitrate CR 30 MG oral TABLET SR 24 HR Isosorbide Mononitrate CR 30 MG oral TABLET SR 24 HR 11-07 00:00: 00 Yes [id number] 30mg Take 1 tablet (30 mg total) by mouth every morning. Ana deng Baclofen 10 MG oral Tablet Baclofen 10 MG oral Tablet 11-02 00:00: 00 Yes [id number] 10mg Q.5D Take 1 tablet (10 mg total) by mouth 2 times daily as needed (headache) Caution for sedation. Ana Burnetta sowmya methylPREDN ISolone (Medrol) 4 MG oral Tablet Therapy Pack methylPREDN ISolone (Medrol) 4 MG oral Tablet Therapy Pack 11-02 00:00: 00 11-07 00:00 :00 No [id number] 1{jarret} Take 1 jarret by mouth See Admin Instructio ns Use as directed. Ana Burnetta sowmya hydrALAZINE HCl 10 MG oral Tablet hydrALAZINE HCl 10 MG oral Tablet 11-01 00:00: 00 Yes [id number] TAKE 1 TABLET BY MOUTH THREE TIMES DAILY FOR SBP >160 Ana deng predniSONE (DELTASONE) 20 MG oral tablet predniSONE (DELTASONE) 20 MG oral tablet 10-22 00:00: 00 11-01 23:59 :00 No [id number] 40mg QD Take 2 tablets (40 mg total) by mouth daily for 10 days. Ana deng Galcanezuma b-gnlm (Emgality) 120 MG/ML subcutaneou s Solution Auto-inject or injection Galcanezuma b-gnlm (Emgality) 120 MG/ML subcutaneou s Solution Auto-inject or injection 10-11 00:00: 00 11-07 00:00 :00 No 120mg Inject 1 mL (120 mg total) into the skin once a month. Ana deng busPIRone HCl 5 MG oral Tablet busPIRone HCl 5 MG oral Tablet 09-25 00:00: 00 Yes [id number] 5mg Q.[id number] 3D Take 1 tablet (5 mg total) by mouth 3 times daily as needed (anxiety). Ana deng linaCLOtide 145 MCG oral Capsule linaCLOtide 145 MCG oral Capsule 09-25 00:00: 00 Yes [id number] 145ug QD Take 1 capsule (145 mcg total) by mouth daily. Ana deng linaCLOtide 145 MCG oral Capsule linaCLOtide 145 MCG oral Capsule 09-18 10:57: 03 Yes [id number] 145ug QD Take 1 capsule (145 mcg [...] MG oral Tablet 09-18 00:00: 00 Yes [id number] 40mg Q.5D Take 1 tablet (40 mg total) by mouth 2 times daily. Ana deng Carvedilol 25 MG oral Tablet Carvedilol 25 MG oral Tablet 09-18 00:00: 00 Yes [id number] 25mg Take 1 tablet (25 mg total) by mouth in the morning and 1 tablet (25 mg total) in the evening. Take with meals. Ana deng Levothyroxi ne Sodium 50 MCG oral Tablet Levothyroxi ne Sodium 50 MCG oral Tablet 09-18 00:00: 00 Yes [id number] 50ug QD Take 1 tablet (50 mcg total) by mouth daily. Ana deng Hydrocort-P ramoxine, Perianal, 1-1 % apply externally Foam Hydrocort-P ramoxine, Perianal, 1-1 % apply externally Foam 09-18 00:00: 00 Yes [id number] 1{appli cation} Q.[id number] 3D Apply 1 Applicatio n topically 3 times daily as needed (hemorrhoi ds). Ana deng OZEMPIC (0.25 or 0.5 mg/dose) 2 mg/3 mL SQ Solution Pen-Injecto r OZEMPIC (0.25 or 0.5 mg/dose) 2 mg/3 mL SQ Solution Pen-Injecto r 09-18 00:00: 00 11-13 23:59 :00 No [id number] 3 .25mg Q1W Inject 0.25 mg into [...] (TORADOL) 30 mg/mL 08-21 13:23: 54 No [id number] 30mg 30 mg, intramuscu lar, ONCE, On [...] Cap DR Particles 08-21 00:00: 00 Yes [id number] 60mg QD Take 1 capsule (60 mg total) by mouth daily. Ana deng Atorvastati n Calcium 40 MG oral Tablet Atorvastati n Calcium 40 MG oral Tablet 08-15 00:00: 00 Yes [id number] 3 40mg QD Take 1 tablet (40 [...] 08-15 00:00: 00 09-18 00:00 :00 No [id number] .25mg Q1W Inject 0.25 mg into the skin once a week. Ana deng Carvedilol 25 MG oral Tablet Carvedilol 25 MG oral Tablet 08-15 00:00: 00 09-18 00:00 :00 No [id number] 12.5mg Take 0.5 tablets (12.5 mg total) by mouth in the morning and 0.5 tablets (12.5 mg total) in the evening. Take with meals. Ana deng glipiZIDE 5 MG oral Tablet glipiZIDE 5 MG oral Tablet 08-14 00:00: 00 Yes [id number] 5mg Take 1 tablet (5 mg total) [...] MG oral Tablet 08-07 00:00: 00 Yes [id number] 1{tbl} QD Take 1 tablet by mouth daily. Ana deng Atorvastati n Calcium 20 MG oral Tablet 08-07 00:00: 00 Yes [id number] 3 20mg QD Take 1 tablet (20 mg total) by mouth nightly. Ana deng Metformin HCl 500 MG oral Tablet Metformin HCl 500 MG oral Tablet 08-07 00:00: 00 Yes [id number] 9106 500mg Take 1 tablet (500 mg total) by mouth in the morning and 1 tablet (500 mg total) in the evening. Take with meals. Ana deng Pantoprazol e Sodium 40 MG oral Tablet Delayed Response Pantoprazol e Sodium 40 MG oral Tablet Delayed Response 08-07 00:00: 00 Yes [id number] 40mg QD Take 1 tablet (40 mg total) by mouth daily. Ana deng Gabapentin 400 MG oral Capsule Gabapentin 400 MG oral Capsule 08-07 00:00: 00 Yes [id number] 400mg Q.[id number] 3D Take 1 capsule (400 mg total) by mouth 3 times daily. Ana deng Amlodipine Besylate (Norvasc) 10 MG oral Tablet Amlodipine Besylate (Norvasc) 10 MG oral Tablet 08-07 00:00: 00 Yes [id number] 10mg QD Take 1 tablet (10 mg total) by mouth daily. Ana deng Atorvastati n Calcium 10 MG oral Tablet 08-07 00:00: 00 08-07 00:00 :00 No [id number] 3 20mg QD Take 2 tablets (20 [...] MG oral Tablet 07-16 00:00: 00 Yes [id number] 12.5mg Take 1 tablet (12.5 mg total) by mouth in the morning and 1 tablet (12.5 mg total) in the evening. Take with meals. Ana deng Triamcinolo ne Acetonide 0.1 % apply externally Cream 07-16 00:00: 00 Yes [id number] 1{appli cation} QD Apply 1 Applicatio n [...] Sodium 75 MG oral Tablet Delayed Response -11 00:00: 00 11-07 00:00 :00 No 75mg Q.5D Take 1 tablet (75 mg total) by mouth 2 times daily as needed. Ana Estefany deng Orphenadrin e Citrate CR 100 MG oral Tablet 12 Hour Sustained Release -11 00:00: 00 08-07 00:00 :00 No 100mg Q.5D Take 1 tablet (100 mg total) by mouth 2 times daily as needed. Ana Estefany Forman l predniSONE 20 mg tablet 13 00:00: 00 11-01 04:59 :00 No [id number] 40mg Take 2 tablets by mouth in the morning for 4 days. [facility] furosemide (LASIX) injection 40 mg 10-26 23:15: 00 10-26 23:40 :00 No 40mg 40 mg, IV Push, ONCE, 1 dose, On Tue10/27/23 at 1815, [facility] ipratropium -albuteroL (DUONEB) 0.5 mg-3 mg(2.5 mg base)/3 mL nebulizer solution 3 mL 10-26 23:00: 00 10-26 22:21 :00 No 3mL 3 mL, Inhalation , ONCE, 1 dose, On Tue10/27/23 at 1800, Routine [facility] dexamethaso ne sod phos PF injection 10 mg 10-26 22:15: 00 10-26 22:21 :00 No 10mg 10 mg, Slow IV Push, ONCE, 1 dose, On Tue10/27/23 at 1715, 1 mL [facility] furosemide 20 mg tablet 10-26 00:00: 00 11-03 04:59 :00 No [id number] 40mg Take 2 tablets by mouth in the morning for 7 days. [facility] magnesium sulfate in water 2 gram/50 mL (4 %) infusion 2 g 10-17 21:15: 00 10-17 21:01 :00 No 2g 2 g, IV Piggyback, Administer over 15 Minutes, ONCE, 1 dose, On Tue10/18/23 at 1615, Routine [facility] methocarbam oL (ROBAXIN) injection 1,000 mg 10-17 19:45: 00 10-17 20:01 :00 No 1000mg 1,000 mg, Slow IV Push, Administer over 3-5 Minutes, ONCE, 1 dose, On Tue10/18/23 at 1445, Routine [facility] ketorolac (TORADOL) injection 15 mg 10-17 19:45: 00 10-17 19:58 :00 No 15mg 15 mg, Slow IV Push, ONCE, 1 dose, On Tue10/18/23 at 1445, Routine [facility] meclizine (TRAVEL-EAS E (MECLIZINE) ) tablet 25 mg 10-17 19:00: 00 10-17 19:58 :00 No 25mg 25 mg, Oral, ONCE, 1 dose, On Tue10/18/23 at 1400, [facility] meclizine 25 mg tablet 10-17 00:00: 00 Yes [id number] 25mg Take 1 tablet by mouth 3 (three) times daily as needed for Dizziness or Nausea. [facility] methocarbam oL 750 mg tablet 10-17 00:00: 00 Yes [id number] 750mg Take 1 tablet by mouth 4 (four) times daily. [facility] Tizanidine HCl 4 MG oral Tablet 8-23 00:00: 00 08-07 00:00 :00 No 4mg Q.25D Take 1 tablet (4 mg total) by mouth every 6 hours as needed. Ana deng Ferrous Sulfate 325 (65 Fe) MG oral Tablet Ferrous Sulfate 325 (65 Fe) MG oral Tablet 30 00:00: 00 09-18 00:00 :00 No 325mg QD Take 1 tablet (325 mg total) by mouth daily (with breakfast) . Ana deng Fingerstix Lancets does not apply Misc Fingerstix Lancets does not apply Misc 09-11 00:00: 00 Yes 1{each} QD 1 each by other route daily. Ana deng Metformin HCl 500 MG oral Tablet 7-29 00:00: 00 08-07 00:00 :00 No 500mg [...] 30 MG oral TABLET SR 24 HR -17 00:00: 00 11-07 00:00 :00 No 30mg Take 1 tablet (30 mg total) by mouth every morning. Ana deng Atorvastati n Calcium 10 MG oral Tablet 4-14 00:00: 00 08-07 00:00 :00 No 10mg 1 tablet (10 mg total). Ana deng Gabapentin 300 MG oral Capsule 07-16 00:00: 00 08-07 00:00 :00 No 300mg Q.[id number] 3D Take 1 capsule (300 mg total) by mouth 3 times daily. Ana deng Carvedilol 12.5 MG oral Tablet 07-16 00:00: 00 07-16 00:00 :00 No Ana Burnetta l Immunizations Ordered Immunization Name Filled Immunization Name Date Status Comments Source Pneumococcal Vaccine, Polysaccharide Pneumococcal Vaccine, Polysaccharide 2021-03-17 00:00:00 Completed Ana Apple Pneumococcal Vaccine, Polysaccharide Unknown Completed Ana Rockwell External Pneumococcal Vaccine, Polysaccharide Unknown Completed Ana Allison - External Pneumococcal Vaccine, Polysaccharide Unknown Completed Ana Rockwell External Pneumococcal Vaccine, Polysaccharide Unknown Completed Ana Allison - External Pneumococcal Vaccine, Polysaccharide Unknown Completed Ana Allsion - External Vital Signs Vital Name Observation Time Observation Value Comments S ource Systolic blood pressure 2024-11-07 14:27:00 139 mm[Hg] Ana Seybold - External Diastolic blood pressure 2024-11-07 14:27:00 91 mm[Hg] Ana Seybold - External Heart rate 2024-11-07 14:27:00 91 /min Ana Seybold - External Body temperature 2024-11-07 14:16:00 36.33 Natty Ana Seybold - External Respiratory rate 2024-11-07 14:16:00 18 /min Ana Seybold - External Body height 2024-11-07 14:16:00 157.5 cm Ana Seybold - External Body weight 2024-11-07 14:16:00 133.471 kg Ana Seybold - External BMI 2024-11-07 14:16:00 53.82 kg/m2 Ana Seybold - External Oxygen saturation in Arterial blood by Pulse oximetry 2024-11-07 14:16:00 97 /min Ana Seybold - External Systolic blood pressure 2024-10-22 14:15:00 149 mm[Hg] [...] External BMI 2024-08-07 13:05:00 53.04 kg/m2 Ana Allison - External Oxygen saturation in Arterial blood by Pulse oximetry 2024-08-07 13:05:00 99 /min Ana Allison - External Systolic blood pressure 2024-07-16 19:25:00 [...] Systolic blood pressure 2023-10-27 21:54:00 140 mm[Hg] [facility] Diastolic blood pressure 2023-10-27 21:54:00 89 mm[Hg] [facility] Heart rate 2023-10-27 21:54:00 69 /min [facility] Respiratory rate 2023-10-27 21:54:00 18 /min [facility] Oxygen saturation in Arterial blood by Pulse oximetry 2023-10-27 21:54:00 97 /min [facility] Body temperature 2023-10-27 18:20:00 36.94 Natty [facility] Body height 2023-10-27 18:17:00 157.5 cm [facility] Body weight 2023-10-27 18:17:00 122.471 kg [facility] BMI 2023-10-27 18:17:00 49.38 kg/m2 [facility] Heart rate 2023-10-18 21:45:00 78 /min [facility] Oxygen saturation in Arterial blood by Pulse oximetry 2023-10-18 21:45:00 99 /min [facility] Systolic blood pressure 2023-10-18 21:30:00 118 mm[Hg] [facility] Diastolic blood pressure 2023-10-18 21:30:00 75 mm[Hg] [facility] Respiratory rate 2023-10-18 21:30:00 18 /min [facility] Body height 2023-10-18 17:38:00 157.5 cm [facility] Body temperature 2023-10-18 17:37:00 36.28 Natty [facility] Body weight 2023-10-18 17:37:00 122.471 kg [facility] BMI 2023-10-18 17:37:00 49.38 kg/m2 [facility] Procedures Procedure Date / Time Performed Performing Clinician Source PRE/POST SPIROMETRY (PPO) 2024-10-22 15:05:25 Rozina Barnes - External ALLERGENS, ZONE 6 2024-10-22 00:00:00 Guilherme Allison - External IMMUNOGLOBULIN E, TOTAL 2024-10-22 00:00:00 Ana Allison - External CBC WITH DIFFERENTIAL 2024-10-22 00:00:00 Ana Allison - External ECG- ADULT 2024-10-22 00:00:00 Ana peraza - External POCT GLUCOSE (AUTOMATED) 2023-10-27 21:53:00 Alexandre Snyder [facility] TROPONIN I 2023-10-27 20:08:00 Jignesh Castro [facility] COMP. METABOLIC PANEL ([id number]) 2023-10-27 20:08:00 Jignesh Castro [facility] CBC WITH DIFF 2023-10-27 20:08:00 Jignesh Castro [facility] N-TERMINAL PRO-BNP 2023-10-27 20:08:00 Jignesh Castro [facility] XR CHEST 1 VW 2023-10-27 18:58:00 Jignesh Castro [facility] URINALYSIS 2023-10-18 20:50:00 Llia Cooper [facility] XR CHEST 2 VW 2023-10-18 19:55:35 Lila Cooper [facility] TROPONIN I 2023-10-18 19:47:00 [facility] COMP. METABOLIC PANEL ([id number]) 2023-10-18 19:47:00 Lila Cooper [facility] CBC WITH DIFF 2023-10-18 19:47:00 Lila Cooper [facility] N-TERMINAL PRO-BNP 2023-10-18 19:47:00 Lila Cooper [facility] CT HEAD WO CONTRAST 2023-10-18 19:34:52 Nicki Cooper [facility] PULMONARY STRESS TESTING Guilherme Allison - External Plan of Care Planned Activity Planned Date Details Comments Source Encounters Start Date/Time End Date/Time Encounter Type Admission Type Attending [facility] Facility Care Department Encounter ID Source 2024-12-10 13:30:00 2024-12-10 13:30:00 Outpatient KHADRA LANG [id number] [facility] 2024-12-07 14:00:00 2024-12-07 14:00:00 [id number] 15:15:00 2024-11-30 15:15:00 Outpatient ALEXANDER ESPITIA [id number] [facility] 2024-11-22 14:00:00 2024-11-22 14:00:00 Outpatient KIM DHALIWAL [id number] [facility] 2024-11-20 14:00:00 2024-11-20 14:00:00 Outpatient KAYLEY DILLON [id number] [facility] 2024-11-08 00:00:00 2024-11-08 00:00:00 Outpatient ALEXANDER ESPITIA [id number] [facility] 2024-11-07 14:00:00 2024-11-07 14:00:00 Outpatient WILLARD FOWLER [id number] [facility] 2024-11-07 00:00:00 2024-11-07 00:00:00 Outpatient KAYLEY DILLON ANA HAAS [id number] [facility] 2024-11-02 14:00:00 2024-11-02 14:00:00 Outpatient JOSE FENG [facility] [id number] [facility] 2024-11-02 00:00:00 2024-11-02 00:00:00 Outpatient KAYLEY DILLON ANA HAAS [id number] [facility] 2024-10-23 09:15:00 2024-10-23 09:15:00 Outpatient ALEXANDER ESPITIA ANA HAAS [id number] [facility] 2024-10-22 15:45:00 2024-10-22 15:45:00 Outpatient EWA ANA HAAS [id number] [facility] 2024-10-22 14:30:00 2024-10-22 14:30:00 Outpatient SEGUNDO BARNES [id number] [facility] 2024-10-11 00:00:00 2024-10-11 00:00:00 Outpatient REGI LEONARDO [id number] [facility] 2024-10-09 13:00:00 2024-10-09 13:00:00 Outpatient ROMA TELLO [id number] [facility] 2024-10-08 11:00:00 2024-10-08 11:00:00 Outpatient ANA HAAS [id number] [facility] 2024-10-05 09:15:00 2024-10-05 09:15:00 Outpatient ANA HAAS [id number] [facility] 2024-10-04 11:30:00 2024-10-04 11:30:00 Outpatient SEGUNDO BARNES [id number] [facility] 2024-10-02 00:00:00 2024-10-02 00:00:00 Outpatient UMAIR BRUNO [id number] [facility] 2024-09-28 13:30:00 2024-09-28 13:30:00 Outpatient EBONI HEAD ANA HAAS [id number] [facility] 2024-09-25 09:55:00 2024-09-25 09:55:00 Outpatient DENNIS ANA HAAS [id number] [facility] 2024-09-25 09:15:00 2024-09-25 09:15:00 Outpatient TRAE VALDEZ ANA HAAS [id number] [facility] 2024-09-25 00:00:00 2024-09-25 00:00:00 Outpatient ALEXANDER ESPITIA ANA HAAS [id number] [facility] 2024-09-24 14:00:00 2024-09-24 14:00:00 Outpatient ANA HAAS [id number] [facility] 2024-09-21 11:15:00 2024-09-21 11:15:00 Outpatient ANA HAAS [id number] [facility] 2024-09-18 10:15:00 2024-09-18 10:15:00 Outpatient ALEXANDER ESPITIA ANA HAAS [id number] [facility] 2024-09-18 00:00:00 2024-09-18 00:00:00 Outpatient ANA HAAS [id number] [facility] 2024-09-13 13:15:00 2024-09-13 13:15:00 Outpatient ANA HAAS [id number] [facility] 2024-09-13 11:00:00 2024-09-13 11:00:00 Outpatient ANA HAAS [id number] [facility] 2024-09-11 00:00:00 2024-09-11 00:00:00 Outpatient KAYLEY DILLON ANA HAAS [id number] [facility] 2024-09-10 11:30:00 2024-09-10 11:30:00 Outpatient SEGUNDO BARNES ANA HAAS [id number] [facility] 2024-09-07 00:00:00 2024-09-07 00:00:00 Outpatient ANDREA ESPTIIAAND ANA HAAS [id number] Ana Seybold 2024-09-04 00:00:00 2024-09-04 00:00:00 Outpatient IVAN DARDEN ANA HAAS [id number] Ana Seybold 2024-09-03 10:00:00 2024-09-03 10:00:00 Outpatient TRAE VALDEZ ANA HAAS [id number] Ana Seybold 2024-09-03 00:00:00 2024-09-03 00:00:00 Outpatient JORDEN REGI ANA HAAS [id number] Ana Seybold 2024-08-31 10:20:00 2024-08-31 10:20:00 Outpatient ANA HAAS [id number] Ana Seybold 2024-08-30 11:40:00 2024-08-30 11:40:00 Outpatient FENG JOSE ANA HAAS [id number] Ana Seybold 2024-08-30 11:15:00 2024-08-30 11:15:00 Outpatient KAYLEY DILLON [id number] Ana Seybold 2024-08-28 12:00:00 2024-08-28 12:00:00 Outpatient ANA HAAS [id number] Ana Seybold 2024-08-28 00:00:00 2024-08-28 00:00:00 Outpatient EBONI HEAD ANA HAAS [id number] Ana Seybold 2024-08-28 00:00:00 2024-08-28 00:00:00 Outpatient MD ANA RODRIGUEZ [id number] Ana Seybold 2024-08-23 14:00:00 2024-08-23 14:00:00 Outpatient ANA HAAS [id number] Ana Seybold 2024-08-22 11:00:00 2024-08-22 11:00:00 Outpatient TRAE VALDEZ ANA HAAS [id number] Ana Seybold 2024-08-21 13:00:00 2024-08-21 13:00:00 Outpatient KIM DHALIWAL [id number] Ana Seybold 2024-08-19 00:00:00 2024-08-19 00:00:00 Outpatient TRAY HERNANDEZ ANA HAAS [id number] Ana Seybold 2024-08-15 13:30:00 2024-08-15 13:30:00 Outpatient TREZully7 ANA HAAS [id number] Ana Seybold 2024-08-15 13:30:00 2024-08-15 13:30:00 Outpatient EBONI HEAD ANA HAAS [id number] Ana Seybold 2024-08-14 09:30:00 2024-08-14 09:30:00 Outpatient TRAE VALDEZ ANA HAAS [id number] Ana Seybold 2024-08-14 00:00:00 2024-08-14 00:00:00 Outpatient ALEXANDER ESPITIA ANA HAAS [id number] Ana Seybold 2024-08-07 08:15:00 2024-08-07 08:15:00 Outpatient PREZAS ALEXANDER ANA HAAS [id number] Ana Seybold 2024-08-07 00:00:00 2024-08-07 00:00:00 Outpatient ANA HAAS [id number] Ana Seybold 2024-08-06 14:30:00 2024-08-06 14:30:00 Outpatient JOSHUAANDREA MEDINA ANA HAAS [id number] Ana Seybold 2024-08-03 00:00:00 2024-08-03 00:00:00 Outpatient PREALEXANDER AGUSTIN ANA HAAS [id number] Ana Seybold 2024-07-27 15:00:00 2024-07-27 15:00:00 Outpatient MEGAN SEGUNDO HAAS [id number] Ana Seybold 2024-07-27 11:20:00 2024-07-27 11:20:00 Outpatient [id number] ANA HAAS [id number] Ana Seybold 2024-07-25 00:00:00 2024-07-25 00:00:00 Outpatient ALEXANDER ESPITIA ANA HAAS [id number] Ana Seybold 2024-07-17 00:00:00 2024-07-17 00:00:00 Outpatient MD ANA RODRIGUEZ [id number] Ana Allison 2024-07-16 15:35:00 2024-07-16 15:35:00 Outpatient [id number] ANA HAAS [id number] Ana Allison 2024-07-16 14:30:00 2024-07-16 14:30:00 Outpatient PREALEXANDER AGUSTIN [id number] Ana Allison 2024-06-25 08:00:00 2024-06-25 08:00:00 Outpatient PREZASALEXANDER [id number] Ana [facility] 2023-11-30 17:10:57 2023-11-30 17:10:57 Outpatient SFA SFA [id number] Alexandre Gusman 2023-11-09 00:00:00 2023-11-09 11:47:00 Letter (Out) Campaigns, Generic Provider Campaigns, Generic Provider [facility] [id number] [facility] 2023-10-27 13:21:00 2023-10-27 18:47:00 Emergency X ALEXANDRE SNYDER STEPHEN [facility] E[facility] [id number] [facility] 2023-10-27 13:21:00 2023-10-27 18:47:00 Emergency Alexandre Snyder [facility] [id number] [facility] [facility]-10-18 12:39:00 2023-10-18 17:18:00 Emergency Carson Bae [facility] [id number] [facility] 2023-10-18 12:39:00 2023-10-18 17:18:00 Emergency X FABIANCARSON GREGORY [facility] ERT [id number] [facility] Results Test Description Test Time Test Comments Results Result Co mments Source [facility] [id number] 19:25:37PROCEDURE: XR CHEST 1 VW 10/27/2023 1:50 PM CLINICAL INDICATION: sob COMPARISON: Radiograph of 10/18/2023 FINDINGS: The lungs are clear. There is no pleural effusion. ?No pneumothorax. The cardiac size is normal. Left chest wall cardiac pacer leads overlyingright atrium and right ventricle. No aggressive osseous lesion. [facility] [id number] 21:43:24EXAM: XR CHEST 2 VW COMPARISON: None HISTORY: Stated history of pseudotumor cerebri, presented withdizziness. FINDINGS: Left chest wall pacemaker is noted, with leads terminating in the rightatrium and right ventricle. Lungs: The lungs are well expanded and clear. No focal opacity. No pleuralabnormality. Heart/Mediastinum: The cardiomediastinal silhouette is normal toborderline. Bones and soft tissues: No acute osseous abnormality is visualized.[facility]MINAL [id number] 20:34:21* Test Item Value Reference Range Interpretation Comme [facility] NT-proBNP (test code = 38050-1) 88 pg/mL <=125 Lab Interpretation (test cod e = 63114-3) Normal [facility] [id number] 20:34:21* Test Item Value Reference Range Interpretation Comme nts TROPONIN I (test code = 3597994959) 0.009 ng/mL <=0.034 YAMIL (test code = [...] of biotin. Lab Interpretation (test code = 68138-2) Normal [facility]OL[facility] (79589)2023-10-18 20:23:56* Test Item Value Reference Range Interpretation Comme nts NA (test code = 1300102905) 142 mmol/L 135-145 K (test code = 2940514818) 4.4 mmol/L 3.5-5.0 Slight hemolysis CL (test code = 3894602001) 109 mmol/L 98-108 H CO2 TOTAL (test code = 6783595496) 22 mmol/L 23-31 L AGAP (test code = 1240159990) 11 2-16 BUN (test code = 9757850454) 15 mg/dL 7-23 Slight hemolysis GLUCOSE (test code = 1037346593) 147 mg/dL 70-110 H CREATININE (test code = 2160-0) 0.87 mg/dL 0.50-1.04 TOTAL BILI (test code = 1640908755) 0.5 mg/dL 0.1-1.1 CALCIUM (test code = 7874513476) 8.6 mg/dL 8.6-10.6 T PROTEIN (test code = 2694658116) 7.0 g/dL 6.3-8.2 ALBUMIN (test code = 6875220427) 4.0 g/dL 3.5-5.0 ALK PHOS (test code = 2861877499) 74 U/L 34-122 Slight hemolysis ALTv (test code = 1742-6) 36 U/L 5-35 H AST(SGOT) (test code = 4948509117) 36 U/L 13-40 Slight hemolysis eGFR (test code = 09485-1) 83.9 mL/min/1.73m2 CKD-EPI eGFR (2020). Assuming creatinine has been stable day-to-day for at least three months, the eGFR indicates Category G2 (60 - 89 mL/min/1.73 m2) Lab Interpretation (test code = 84525-4) Abnormal [facility] WITH [id number] 20:13:16* Test Item Value Reference Range Interpretation [...] g/dL 31.6-35.1 L RDW-SD (test code = 63737-1) 60.7 fL 39.0-49.9 H RDW-CV (test code = 788-0) 20.3 % 12.0-15.5 H PLT (test code = 777-3) 227 166-358 MPV (test code = 62152-3) 9.7 fL 9.5-12.9 NRBC/100 WBC (test code = 8127708611) 0.0 0.0-10.0 NRBC x10^3 (test code = 0282131881) See_Comment [Automated messa ge] The system which generated this result transmitted reference range: 10*3/?L. The reference range was not used to interpret this result as normal/abnormal. GRAN MAT (NEUT) % (test code = 770-8) 60.7 % IMM GRAN % (test code = 4636796605) 0.70 % LYMPH % (test code = 736-9) 30.5 % MONO % (test code = 5905-5) 5.3 % EOS % (test code = 713-8) 2.3 % BASO % (test code = 706-2) 0.5 % GRAN MAT x10^3(ANC) (test code = 8692284109) 3.40 10*3/uL 1.88-7.09 IMM GRAN x10^3 (test code = 3071624214) 0.04 10*3/uL 0.00-0.06 LYMPH x10^3 (test code = 731-0) 1.71 10*3/uL 1.32-3.29 MONO x10^3 (test code = 742-7) 0.30 10*3/uL 0.33-0.92 L EOS x10^3 (test code = 711-2) 0.13 10*3/uL 0.03-0.39 BASO x10^3 (test code = 704-7) 0.03 10*3/uL 0.01-0.07 Lab Interpretation (test code = 82570-8) Abnormal [facility] [id number] 19:45:09CT HEAD WO CONTRAST HISTORY: Dizziness, persistent/recurrent, [...] clear. Thecalvarium and central skull base are unremarkable.[facility] Notes Date/Time Note Provider Source Referral ID Status Reason Start Date Expiration Date Visits Requested Visits Authorized [id number] Authorized Service Not Available at Clinic 11/07/2024 02/05/2025 1 1 Jenifer [id number] 18:37:19* AnaGhassan [id number] 18:37:19* Willard Fowler PA-C - 11/07/2024 2:35 PM CDT ADOLFO Makeda Bach is a 44 year old female is here today for a follow up for discharge from the ER this morning on 11/07/2024. The patient was discharged with a final diagnosis of TIA Went to the ER with sx of slurred speech The patient was treated with morphine for the headache and antihypertensive medication, per patient CT of the head was normal, per patient Was recommended to follow up with neurologist and PCP She does not currently have her ER note and is not available via Care Everywhere. ANGEL obtained for record. She is still having headache, fatigue, dizziness once her discharge from the ER this morning. Her blood pressure is currently elevated at 140/90, but has been as high as 100 this morning at home. She takes carvedilol 25 mg twice daily, amlodipine 10 mg daily, and she has hydralazine 10 mg to take up to 3 times daily as needed for SBP greater than 160. She has a reported allergy to out as a losartan-chlorthalidone which caused swelling of the throat. The patient is currently at home and since discharge is worsened. The hospital discharge notes were unavailable and the medicine list has been reconciled with the outpatient medication list. Based on this review the following changes were noted no change in medications since discharge. Relevant Labs/Imaging reviewed: ER note not available. ANGEL obtained for records. Current Medications: Current Medications[1] Allergies: Allergies[2] Problem List: Patient Active Problem List Diagnosis HTN (hypertension) Idiopathic intracranial hypertension DM type 2 with diabetic mixed hyperlipidemia (multi HCC) Fibromyalgia DM neuropathy, type II diabetes mellitus (multi HCC) Pacemaker CHF (congestive heart failure) (multi HCC) Hypothyroidism (acquired) Migraine Asthma ([facility]) NOEL on CPAP History of hysterectomy History of urinary retention Chronic back pain Chronic respiratory failure with hypoxia (multi HCC) Morbid obesity ([facility]) Rectal bleeding Chronic constipation History of sick sinus syndrome Pertinent History: Past Medical History[3] No past surgical history on file. Social History[4] Review of Systems Review of Systems Constitutional: Positive for fatigue. Cardiovascular: Negative for chest pain and palpitations. Neurological: Positive for dizziness, weakness and headaches. Negative for facial asymmetry, speech difficulty and light-headedness. Physical Exam BP (!) 139/91 (Side: Left Arm, Position: SITTING, Cuff Size: Large Adult) | Pulse 91 | Temp 97.4 ?F (36.3 ?C) (Tympanic) | Resp 18 | Ht 5' 2" (1.575 m) | Wt 294 lb 4 oz (133.5 kg) | SpO2 97% | BMI 53.82 kg/m? Physical Exam Constitutional: Appearance: Normal appearance. She is obese. Comments: Patient appears very fatigued, able to answer questions but speech is slowed compared to baseline. HENT: Head: Normocephalic and atraumatic. Right Ear: External ear normal. Left Ear: External ear normal. Nose: Nose normal. Eyes: Conjunctiva/sclera: Conjunctivae normal. Cardiovascular: Rate and Rhythm: Normal rate. Pulses: Normal pulses. Heart sounds: No murmur heard. Pulmonary: Effort: Pulmonary effort is normal. No respiratory distress. Breath sounds: No stridor. No wheezing, rhonchi or rales. Neurological: General: No focal deficit present. Psychiatric: Mood and Affect: Mood normal. Behavior: Behavior normal. Thought Content: Thought content normal. Judgment: Judgment normal. Assessment & Plan 1. TIA (transient ischemic attack) - REFERRAL TO PHYSICAL THERAPY- EXTERNAL Patient seen today for ER follow-up for TIA. Upon examination, patient was extremely fatigued, dizzy, and had trouble walking from the exam room back to the waiting room due to severe headache. EMS was called and patient was transferred to the emergency room for further evaluation and management. Nursing team was able to call and get Ms. bach on the schedule to follow-up with her neurologist-soonest available appointment was 12/10, but she is on the wait list for sooner appointment. She will need to follow-up with neurology for her chronic migraines and follow-up for this recent TIA. 2. At risk for falling - REFERRAL TO PHYSICAL THERAPY- EXTERNAL Will proceed with referral to physical therapy due to increasing issues with balance/increased risk of falls. 3. Balance problem - REFERRAL TO PHYSICAL THERAPY- EXTERNAL 4. Primary hypertension - hydrALAZINE HCl 10 MG oral Tablet; TAKE 1 TABLET BY MOUTH THREE TIMES DAILY FOR SBP >160 Uncontrolled. Continue amlodipine 10 mg daily, carvedilol 25 mg twice daily patient to be seen and evaluated in the ER setting. At follow-up, if blood pressure still not controlled, will have patient start hydralazine to 50 mg twice daily due to history of allergies to other antihypertensive options. 5. Anginal syndrome - Isosorbide Mononitrate CR 30 MG oral TABLET SR 24 HR; Take 1 tablet (30 mg total) by mouth every morning. Dispense: 90 tablet; Refill: 0 Refill provided. Advised patient to follow-up with electrician wiring for further refills and recommendations. Discussed with the pt and answered all questions. Patient was instructed to call or return to clinic prn if these symptoms worsen or fail to improve as anticipated; verbalized understanding, repeated directions and agrees with plan of care. Return for will need ER follow up. This document was completed using voice recognition software. This can produce lawn maintenance worker errors that can at times significantly distort words and phrases. Please interpret any aspect of the note that is nonsensical in light of this fact. Willard Fowler PA-C SP: Dr. Alexander Espitia, [facility] [1]Current Outpatient Medications Medication Sig Dispense Refill Amlodipine Besylate (Norvasc) 10 MG oral Tablet Take 1 tablet (10 mg total) by mouth daily. 90 tablet 1 Atorvastatin Calcium 40 MG oral Tablet Take 1 tablet (40 mg total) by mouth nightly. 100 tablet 3 Ehkpomf-Hvxozzsazsl-Nmkiyaktrg (Breztri Aerosphere) 160-9-4.8 MCG/ACT inhalation Aerosol Inhale into the lungs. Carvedilol 25 MG oral Tablet Take 1 tablet (25 mg total) by mouth in the morning and 1 tablet (25 mg total) in the evening. Take with meals. 180 tablet 3 Cyanocobalamin (Vitamin B-12) 1000 MCG oral Tablet Take 1 tablet (1,000 mcg total) by mouth daily. Duloxetine HCl [address] Particles Take 1 capsule (60 mg total) by mouth daily. 30 capsule 6 Furosemide 40 MG oral Tablet Take 1 tablet (40 mg total) by mouth 2 times daily. 60 tablet 2 Gabapentin 400 MG oral Capsule Take 1 capsule (400 mg total) by mouth 3 times daily. 270 capsule 1 GARLIC OR Take by mouth. glipiZIDE 5 MG oral Tablet Take 1 tablet (5 mg total) by mouth daily (before a meal). 30 tablet 3 hydrALAZINE HCl 10 MG oral Tablet TAKE 1 TABLET BY MOUTH THREE TIMES DAILY FOR SBP >160 Isosorbide Mononitrate CR 30 MG oral TABLET SR 24 HR Take 1 tablet (30 mg total) by mouth every morning. 90 tablet 0 Levothyroxine Sodium 50 MCG oral Tablet Take [...] total) in the evening. Take with meals. Pantoprazole Sodium 40 MG oral Tablet Delayed Response Take 1 tablet (40 mg total) by mouth daily. 90 tablet 1 ACETAMINOPHEN-BUTALBITAL 50-325 MG oral Tablet one Q 6 hours PRN pain, do not combine with narcotics, benzodiazepines, or actaminophen containing compounds, do not drive. (Patient not taking: Reported on 11/07/2024.) 20 tablet 2 Albuterol-Budesonide (AIRSUPRA IN) Inhale into the lungs. Baclofen 10 MG oral Tablet Take 1 tablet (10 mg total) by mouth 2 times daily as needed (headache) Caution for sedation. 10 tablet 0 busPIRone HCl 5 MG oral Tablet Take 1 tablet (5 mg total) by mouth 3 times daily as needed (anxiety). 90 tablet 1 Empagliflozin 10 MG oral Tablet Take 1 tablet (10 mg total) by mouth daily. (Patient not taking: Reported on 11/07/2024.) 90 tablet 3 Fingerstix Lancets does not apply Misc 1 each by other route daily. Galcanezumab-gnlm (Emgality) 120 MG/ML subcutaneous Solution Auto-injector injection Loading dose: Inject 2 pens (240 mg) under the skin for one dose then inject one pen once a month thereafter for maintenance. (Patient not taking: Reported on 11/07/2024.) 2 mL 0 Hydrocort-Pramoxine, Perianal, 1-1 % apply externally Foam Apply 1 Application topically 3 times daily as needed (hemorrhoids). 10 g 2 Ondansetron (ZOFRAN) 8 MG oral TABLET DISPERSIBLE DISSOLVE 1 TABLET IN MOUTH EVERY 8 HOURS OZEMPIC (0.25 or 0.5 mg/dose) 2 mg/3 mL SQ Solution Pen-Injector Inject 0.25 mg into the skin once a week. (Patient not taking: Reported on 11/07/2024.) 3 mL 2 No current facility-administered medications for this visit.[2] Allergies Allergen Reactions Azilsartan-Chlorthalidone Swelling Swelling of throat Compazine Anaphylaxis, Hives and Itching Shellfish-Derived Products Anaphylaxis Iodine Swelling [3] Past Medical History: Diagnosis Date Asthma ([facility]) CHF (congestive heart failure) (multi HCC) Chronic back pain Chronic respiratory failure with hypoxia (multi HCC) DM neuropathy, 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 (multi HCC) Fibromyalgia History of hysterectomy History of urinary retention HTN (hypertension) Hypothyroidism (acquired) Idiopathic intracranial hypertension Migraine NOEL on CPAP Pacemaker [4] Social History Tobacco Use Smoking status: Never Smokeless tobacco: Never Substance Use Topics Alcohol use: Yes Comment: only on occassion Drug use: Never [facility]2025-09-24 18:37:19Upcoming Encounters Scheduled Referrals Name Type Priority Associated Diagnoses Orde r Schedule REFERRAL TO PHYSICAL THERAPY- EXTERNAL Referral Routine TIA (transient ischemic attack) At risk for falling Balance problem Ordered: 11/07/2024 Health Maintenance Due Date Last Done Comments COLONOSCOPY 1978 CT Colonography 1978 Cologuard 1978 Colorectal Cancer Screening 1978 FIT Tests 1978 Sigmoidoscopy 1978 Diabetes: Retinopathy Screening 1996 Tdap Vaccines 1997 PAP SMEAR WITH HPV 2008 Physical Exam 2018 Pneumococcal Vaccine: Pediat rics (0 to 5 Years) and At-Risk Patients (6 to 64 Years) (2 of 2 - PCV) 03/17/2022 03/17/2021 Influenza Vaccines (#1) 2024 Diabetes: Hemoglobin A1C 10/27/2024 07/27/2024 Mammogram 02/10/2025 02/10/2023 Diabetes: Urine Protein Screening 07/27/2025 025 Lipid Panel 07/27/2025 07/27/2024 Creatinine Level (Kidney Function Test) 09/25/2025 0 09/25/2024, 07/27/2024 RSV Vaccines (1 - 1-dose 75+ series) 2053 [facility]2025-09-24 18:37:19 Diagnosis TIA (transient ischemic attack) - Primary Unspecified transient cerebral ischemia At risk for falling Personal history of fall Balance problem Other symptoms involving nervous and musculoskeletal systems Primary hypertension Unspecified essential hypertension Anginal syndrome Other and unspecified angina pectoris [facility]2025-09-24 18:37:19 [facility]2025-09-24 15:29:30 Upon leaving office visit, patient became very dizzy and weak. Patient assisted to chair in front office. VS: BP 153/95, 96% SPO2, HR 94. Patient LOC declined, now mumbling. EMS called at 1512. EMS arrived at 1513- patient transported to [facility]. [facility]aredes [facility]25-[facility]-24 14:22:54 Manual BP 164/108 P103 Machine #1 159/96 P 103 #2 140/89 P 96 #3 138/93 P91 Average 139/91 P 91 Chief Complaint Patient presents with ER F/U Had TIA this morning around 1 am [facility]2025-09-08 17:03:51* * Consultation (Routine) - Authorized Specialty Diagnoses / Procedures Referred By Jammie leonardo Referred To Contact Pulmonary Diagnoses Moderate persistent asthma without complication ([facility]) NOEL on CPAP Chronic respiratory failure with hypoxia (multi HCC) Procedures [place] OFFICE/OUTPATIENT NEW HIGH MDM 60 MINUTES Alexander Espitia DO [address] [place] [address] Phone: tel: fax: Referral ID Status Reason Start Date Expiration Date Visits Requested Visits Authorized [id number] Authorized Specialty Services Required 07/16/2024 10/14/2024 1 1 [facility]2025-09-08 17:03:51* Segundo Barnes MD - 10/22/2024 2:44 PM CDT Images from the original note were not included. Patient and patient’s participants in attendance, if any, consented to the use of [employer] ([employer]), a new technology product that uses artificial [...] hospitalized multiple times for asthma, both in [place] and [place]. He has never smoked. He uses Breztri (2 puffs twice daily) and Airsupra as needed, along with a nebulizer. He was previously on daytime oxygen therapy in [place] and used a sleep apnea mask at night. His doctor recommended portable oxygen therapy. He has a pacemaker and congestive heart failure and is under the care of a electrician wiring. SOCIAL HISTORY Tobacco: The patient does not [...] Insecurity: Food Insecurity Present (04/06/2023) Received from [facility] Hunger Vital Sign Within the past 12 months, you worried that your food would run out before you got the money to buy more.: Sometimes true Within the past 12 months, the food you bought just didn't last and you didn't have money to get more.: Often true Transportation Needs: No Transportation Needs (04/06/2023) Received from [facility] PRAPARE - Transportation Lack of Transportation (Medical): No Lack of Transportation (Non-Medical): No Physical Activity: Not on file Stress: Not on file Social Connections: Not on file Intimate Partner Violence: Not on file Housing Stability: High Risk (04/06/2023) Received from [facility] Housing Stability Vital Sign Unable to Pay [...] total) by mouth nightly. 100 tablet 3 Hfxahsa-Ortdtnjioqy-Jhbmoskxlm (Breztri Aerosphere) 160-9-4.8 MCG/ACT inhalation Aerosol Inhale [...] No current facility-administered medications for this visit. [facility]2025-09-08 17:03:51Upcoming Encounters Scheduled Orders Name Type Priority [...] (1 - 1-dose 75+ series) 2053 [facility]2025-09-08 17:03:51 Diagnosis NOEL (obstructive sleep apnea) - Primary Obstructive sleep apnea (adult) (pediatric) Severe persistent asthma wit hout complication (multi HCC) Chronic respiratory failure with hypoxia (multi HCC) Chronic respiratory failure Chest pain, unspecified type [facility]2025-09-08 17:03:51 [place] 888375-09-08 15:26:26 PPO ordered. Patient completed first part [...] EKG and PPO. Patient cleared to leave. T [facility]2025-09-08 15:25:32 6 minute walk completed. Pre [...] No Calf pain, No Leg pain. T [facility]2025-09-08 14:18:19 Chief Complaint Patient presents with Consultation NOEL/CPAP, asthma, chronic respiratory failure with hypoxia. Radha Wilhelm LVN Radha Wilhelm [facility]2025-08-05 11:35:14* Consultation (Routine) - Authorized Specialty Diagnoses / Procedures Referred By Jammie leonardo Referred To Contact Internal Medicine-Gastroenterol ogy Diagnoses Rectal bleeding Screen for colon cancer Chronic constipation Hemorrhoids, unspecified hemorrhoid type Procedures OFFICE/OUTPATIENT [facility] 60 MINUTES Alexander Espitia DO [address] [place] [address] Phone: tel: fax: Rupesh Oh MD [address] [place] [address] Phone: tel: fax: Referral ID Status Reason Start Date Expiration Date Visits Requested Visits Authorized [id number] Authorized Provider Preference 09/18/2024 12/17/2024 1 1 [facility]2025-08-05 11:35:14* [facility]2025-08-05 11:35:14* Patient Instructions* Alexander Espitia DO - 09/18/2024 11:35 AM CDT 1. Type 2 Diabetes Mellitus. - Currently taking metformin 500 mg twice a day and Jardiance 10 mg daily. - Refill Ozempic 0.25 mg subcu weekly. This will be sent to a different pharmacy. Apparently was on backorder at [facility]. - A1c was 7.9 on 07/27/2024; [...] carvedilol 25 mg will be sent to [facility] in [place]. 5. Pacemaker with History of Sick Sinus Syndrome. - Cardiology sent referral to clinical product specialist to further evaluate and address. - No immediate concerns noted. 6. Chronic Respiratory Failure with Hypoxia. - Using Airsupra as needed and Breztri. - Patient to establish care with pulmonology soon. Await recommendations. 7. Hypothyroidism. - Compliance with medication addressed in detail. Continue levothyroxine 50 mcg daily. Prescription sent to pharmacy. 8. Idiopathic Intracranial Hypertension. - Previously on acetazolamide, switched to Lasix by electrician wiring. - Message will be sent to neurologist [...] through Care Everywhere. * Adult Advisor: Hemorrhoids (Chinese) * Adult Advisor: Constipation (Chinese) [facility]2025-08-05 11:35:14* Alexander Espitia DO - 09/18/2024 10:15 AM CDT Patient and patient’s participants in attendance, if any, consented to the use of [employer] ([employer]), a new technology product that uses artificial [...] on acetazolamide, which was discontinued by her electrician wiring and replaced with Lasix. Despite this change, [...] on metformin 500 mg twice daily and Tnqdxkpez20 mg. She was unable to tolerate Trulicity [...] CPAP for sleep apnea. She saw the manager mall for fibromyalgia and received a trigger point [...] ReviewedAcute on chronic CHF -2019 TTE on careeverywhere with Normal EF -Has LE edema and [...] Moderate persistent asthma without complication ([facility]) 11. NOEL on CPAP 12. Morbid obesity ([facility]) 13. Rectal bleeding- REFERRAL TO GASTROENTEROLOGY- EXTERNAL [...] different pharmacy. Apparently was on backorder at [facility]. - A1c was 7.9 on 07/27/2024; [...] carvedilol 25 mg will be sent to [facility] in [place]. 5. Pacemaker with History of Sick Sinus Syndrome.- Cardiology sent referral to clinical product specialist to further evaluate and address. - No immediate concerns noted. 6. Chronic Respiratory Failure with Hypoxia.- Using Airsupra as needed and Breztri. - Patient to establish care with pulmonology soon. Await recommendations. 7. Hypothyroidism.- Compliance with medication addressed in detail. Continue levothyroxine 50 mcg daily. Prescription sent to pharmacy. 8. Idiopathic Intracranial Hypertension.- Previously on acetazolamide, switched to Lasix by electrician wiring. - Message will be sent to neurologist [...] Albuterol-Budesonide (AIRSUPRA IN) Inhale into the lungs. Cqotcxc-Ycopasodrzf-Sqkgwqcvnc (Breztri Aerosphere) 160-9-4.8 MCG/ACT inhalation Aerosol Inhale [...] Food Insecurity: Food Insecurity Present (04/06/2023)Received from [facility] Hunger Vital Sign Worried About Running Out of Food in the Last Year: Sometimes true Ran Out of Food in the Last Year: Often true Transportation Needs: No Transportation Needs (04/06/2023) Received from [facility] PRAPARE - Transportation Lack of Transportation (Medical): No Lack of Transportation (Non-Medical): No Housing Stability: High Risk (04/06/2023) Received from [facility] Housing Stability Vital Sign Unable to Pay for Housing in the Last Year: Yes Number of Places Lived in the Last Year: 1 Unstable Housing in the Last Year: No [place] [id number] 11:35:14Upcoming Encounters Scheduled Referrals Name Type Priority [...] 2 - PCV) 03/17/2022 03/17/2021 COVID-19 Vaccine (1 - season) 2023 Influenza Vaccines (#1) 2024 Diabetes: Hemoglobin A1C 10/27/2024 07/27/2024 Mammogram 02/10/2025 02/10/2023 Creatinine Level (Kidney Function Test) 07/27/2025 0 07/27/2024 Diabetes: Urine Protein Screening 07/27/2025 025 Lipid Panel 07/27/2025 07/27/2024 RSV Vaccines (1 - 1-dose 75+ series) 2053 [facility]2025-08-05 11:35:14 Diagnosis DM type 2 with [...] of other diseases of circulatory system [facility]2025-08-05 11:35:14 [facility]2025-08-05 10:27:21 Chief Complaint Patient presents with Routine Follow-up Patient is present to follow up on multiple appointments she has been to. Patient would like to address her Lasix, Patient is having blood after a bowel movement. Raffy Chen [facility] [id number] 11:38:37 Chief Complaint Patient presents with Follow-up OTHER Nonintractable paroxysmal hemicrania, unspecified chronicity pattern TPI Height 5'2 per pt Arturo East MA T [place] [id number] 10:50:43 Chief Complaint Patient presents with Consultation Patient has been referred by due to Idiopathic intracranial HTN and Migraine. Caity Good MA [facility]2025-07-08 13:03:31 Chief Complaint Patient presents with Consultation Joint pain fibromyalgia Alondra Brandon [facility] [id number] 08:05:34 Chief Complaint Patient presents with OTHER Patient is present to follow up on labs Raffy Chen [id number] 18:27:00 Patient given printed and verbal discharge [...] in possession of all belongings. Cel[facility] Mcdermott [id number] 13:16:40 Makeda Bach is a 43 year [...] Pt to room for eval Brooklynn Baird [id number] 17:11:43 Patient discharged with steady gait alert and oriented x 4 with discharge instructions no further questions asked Juan Jose [id number] 14:26:33 [facility] [place] [facility] 12:35:53 Makeda Bach is a 43 year old female presenting to ED with c/o headache. Patient reports has been ongoing x4 months. Patient states that she is from [place] and states that she was diagnosed with a "pseudotumor" which is causing pain down her neck and migraines. Patient to green chairs due to ED saturation [facility]
[2024-11-13] MEDS ORDERED: ALBUTEROL 2.5 MG/3 ML NEB SOL ONE (19:07)
--- NOTE | 2024-11-13 20:29 | RAD REPORT ---
EXAMINATION: ONE VIEW CHEST XR CLINICAL INDICATION: Female, 44 years old.,DYSPNEA TECHNIQUE: Frontal chest projection is submitted. Examination is limited by patient positioning and t echnique. COMPARISON: 11/07/2024 FINDINGS: The lungs are well inflated and clear. No pneumothorax or sizable effusion. The heart is normal in s ize. Mediastinal contours are unremarkable. IMPRESSION: No acute intrathoracic abnormalities.
[2024-11-13] MEDS ORDERED: ACETAMINOPHEN 500 MG TAB ONE (20:30)
--- NOTE | 2024-11-13 20:41 | ER ---
Nurse's Notes [facility] Name: Ninoska Bach Age: 44 yrs Sex: Female : 1980 Arrival Date: 11/13/2024 Time: 18:42 Bed DIS1 Private MD: Diagnosis: Dyspnea, unspecified Presentation: 11/13 18:48 Chief complaint: Patient states: there is black mold in my house and I was exposed to iw it, I am having breathing trouble, nauseated, headaches , and I have rashes on my chest , s/s started 2 months ago. Coronavirus screen: At this time, the client does not indicate any symptoms associated with coronavirus-19. Ebola Screen: No symptoms or risks identified at this time. Initial Sepsis Screen: Does the patient meet any 2 criteria? No. Patient's initial sepsis screen is negative. Does the patient have a suspected source of infection? No. Patient's initial sepsis screen is negative. Risk Assessment: Do you want to hurt yourself or someone else? Patient reports no desire to harm self or others. Onset of symptoms was August 2024. 18:48 Method Of Arrival: Ambulatory iw 18:48 Acuity: MONSERRAT 3 iw Historical: - Allergies: 18:50 Iodine; iw 18:50 SHELLFISH; iw 18:50 Compazine; iw - Home Meds: 19:12 amlodipine 10 mg tablet 1 tab once [Active]; atorvastatin oral [Active]; metformin 500 kt5 mg Oral tablet 1 tab 2 times per day [Active]; furosemide 20 mg Oral tablet 1 tab daily [Active]; carvedilol 12.5 mg Oral tablet 1 tab 2 times per day [Active]; - PMHx: 18:50 Congestive heart failure; COPD; Degenerative disc disease; diabetes mellitus; iw Hypertension; Migraine; pseudotumor; Seizure; Bronchitis; Sleep Apnea; 19:12 Seizure; kt5 - PSHx: 18:50 kidney stent; Cholecystectomy; pacemaker; Total abdominal hysterectomy; iw - Immunization history:: Adult Immunizations up to date. - Infectious Disease History:: Denies. - Social history:: Smoking status: Patient denies any tobacco usage or history of. Screenin:10 [facility] ED Fall Risk Assessment (Adult) History of falling in the last 3 months, kt5 including since admission No falls in past 3 months (0 pts) Confusion or Disorientation No (0 pts) Intoxicated or Sedated No (0 pts) Impaired Gait No (0 pts) Mobility Assist Device Used No (0 pt) Altered Elimination No (0 pt) Score/Fall Risk Level 0 - 2 = Low Risk Oriented to surroundings, Maintained a safe environment. Abuse screen: Denies threats or abuse. Nutritional screening: No deficits noted. Tuberculosis screening: No symptoms or risk factors identified. Assessment: 19:05 General: received report from staff genetic counselor lizzette, all questions answered. kt5 19:10 General: Appears in no apparent distress. comfortable, Behavior is calm, cooperative, kt5 appropriate for age. Pain: Complains of pain in top of head, forehead, right yazdanism and left yazdanism. Neuro: No deficits noted. Huynh Agitation-Sedation Scale (RASS): 0 - Alert and Calm Reports headache in entire. Cardiovascular: No deficits noted. Heart tones S1 S2 present Capillary refill < 3 seconds Clubbing of nail beds is absent JVD is absent Pulses are all present. Edema is absent. Respiratory: Reports shortness of breath at rest on exertion Airway is patent Trachea midline Respiratory effort is even, unlabored, Respiratory pattern is regular, symmetrical, Breath sounds with wheezes bilaterally. exp wheezing bilaterally. GI: No deficits noted. Abdomen is round non-distended, Bowel sounds present X 4 quads. Abd is soft and non tender X 4 quads. Reports nausea, Patient currently denies vomiting. : No deficits noted. No signs and/or symptoms were reported regarding the genitourinary system. EENT: No deficits noted. No signs and/or symptoms were reported regarding the EENT system. Derm: No deficits noted. No signs and/or symptoms reported regarding the dermatologic system. Skin is intact, is healthy with good turgor, Skin is dry, Skin is pink, warm \T\ dry. normal. Musculoskeletal: No deficits noted. No signs and/or symptoms reported regarding the musculoskeletal system. 20:02 Reassessment: Patient appears in no apparent distress at this time. Patient and/or kt5 family updated on plan of care and expected duration. Pain level reassessed. Patient is alert, oriented x 3, equal unlabored respirations, skin warm/dry/pink. Patient states feeling better. Patient states symptoms have improved. 20:48 Reassessment: Patient appears in no apparent distress at this time. Patient and/or kt5 family updated on plan of care and expected duration. Pain level reassessed. Patient is alert, oriented x 3, equal unlabored respirations, skin warm/dry/pink. Patient states feeling better. Patient states symptoms have improved. Vital Signs: 18:48 BP 143 / 87; Pulse 97; Resp 20; Temp 96.9; Pulse Ox 99% on R/A; Weight 129.27 kg; iw Height 5 ft. 2 in. ; 21:02 BP 151 / 92; Pulse 85; Resp 16; Temp 97.3; Pulse Ox 97% ; Pain 6/10; kt5 18:48 Body Mass Index 52.13 (129.27 kg, 157.48 cm) iw 21:02 Pain Scale: Adult kt5 ED Course: 18:46 Patient arrived in ED. im 18:50 Cayla Heard FNP-C is PHCP. kb 18:50 Moshe Vegas DO is Attending Physician. kb 18:50 Triage completed. iw 18:50 Arm band placed on. iw 19:10 Bed in low position. Call light in reach. Side rails up X 1. Adult w/ patient. Client kt5 placed on continuous cardiac and pulse oximetry monitoring. NIBP monitoring applied. Door closed. Noise minimized. Pillow given. 19:10 No provider procedures requiring assistance completed. kt5 19:17 Bettina Jarrell, RN is Primary Nurse. kt5 19:44 Chest Single View XRAY In Process Unspecified. EDMS 21:02 Provided Education on: follow up. kt5 Administered Medications: 19:17 Drug: Albuterol Inhalation 2.5 mg Inhalation once Route: Inhalation; kt5 20:03 Follow up: Response: No adverse reaction; Marked relief of symptoms kt5 20:35 Drug: Acetaminophen PO 1000 mg PO once Route: PO; kt5 21:06 Follow up: Response: No adverse reaction; Pain is decreased kt5 Medication: 19:10 VIS not applicable for this client. kt5 Outcome: 20:41 Discharge ordered by . kb 21:02 Discharged to home ambulatory, with family, kt5 21:02 Condition: improved 21:02 Discharge instructions given to patient, family, Instructed on discharge instructions, follow up and referral plans. Demonstrated understanding of instructions, follow-up care, 21:08 Patient left the ED. kt5 Signatures: Dispatcher [employer] EDMS Jonathan Heardistin, SPEECH LANGUAGE PATHOLOGIST TRAVEL-C SPEECH LANGUAGE PATHOLOGIST TRAVEL-Ckb Aida Prieto, RN RN iw Margarita Reyes Keri, RN RN kt5 Corrections: (The following items were deleted from the chart) 18:51 18:48 BP 143 / 87; Pulse 97bpm; Resp 20bpm; Pulse Ox 99% RA; Temp 96.9F; iw iw
--- NOTE | 2024-11-13 20:41 | EDPHYS ---
Physician Documentation [facility] Name: Ninoska Bach Age: 44 yrs Sex: Female : 1980 Arrival Date: 11/13/2024 Time: 18:42 Bed DIS1 Private MD: ED Physician Moshe Vegas HPI: 11/13 21:45 This 44 yrs old Black Female presents to ER via Ambulatory with complaints of black kb mold exposure. 21:45 Patient is a 44-year-old female who presents for cough, congestion, shortness of breath kb and headache that started 2 months ago. Reports she has black mold in her apartment and has been has similar symptoms.. Historical: - Allergies: 18:50 Iodine; iw 18:50 SHELLFISH; iw 18:50 Compazine; iw - Home Meds: 19:12 amlodipine 10 mg tablet 1 tab once [Active]; atorvastatin oral [Active]; metformin 500 kt5 mg Oral tablet 1 tab 2 times per day [Active]; furosemide 20 mg Oral tablet 1 tab daily [Active]; carvedilol 12.5 mg Oral tablet 1 tab 2 times per day [Active]; - PMHx: 18:50 Congestive heart failure; COPD; Degenerative disc disease; diabetes mellitus; iw Hypertension; Migraine; pseudotumor; Seizure; Bronchitis; Sleep Apnea; 19:12 Seizure; kt5 - PSHx: 18:50 kidney stent; Cholecystectomy; pacemaker; Total abdominal hysterectomy; iw - Immunization history:: Adult Immunizations up to date. - Infectious Disease History:: Denies. - Social history:: Smoking status: Patient denies any tobacco usage or history of. ROS: 21:44 Constitutional: As per HPI kb Exam: 21:44 Constitutional: This is a well developed, well nourished patient who is awake, alert, kb and in no acute distress. Head/Face: Normocephalic, atraumatic. ENT: Moist Mucous membranes Cardiovascular: Regular rate Respiratory: Respirations even and unlabored. No increased work of breathing. Talking in full sentences Skin: Warm, dry with normal turgor. Normal color. MS/ Extremity: Pulses equal, no cyanosis. Neurovascular intact. Full, normal range of motion. Neuro: Awake and alert, GCS 15, oriented to person, place, time, and situation. Vital Signs: 18:48 BP 143 / 87; Pulse 97; Resp 20; Temp 96.9; Pulse Ox 99% on R/A; Weight 129.27 kg; iw Height 5 ft. 2 in. ; 21:02 BP 151 / 92; Pulse 85; Resp 16; Temp 97.3; Pulse Ox 97% ; Pain 6/10; kt5 18:48 Body Mass Index 52.13 (129.27 kg, 157.48 cm) iw 21:02 Pain Scale: Adult kt5 MDM: 18:50 Medical Screening Exam initiated kb 21:44 Differential diagnosis: viral Infection, copd exacerbation, pulmonary edema, pneumonia. kb Data reviewed: vital signs, nurses notes. Independent interpretation of the following test(s) in the Emergency Department X-Ray: My interpretation is no pneumonia. Counseling: I had a detailed discussion with the patient and/or guardian regarding the historical points, exam findings, and any diagnostic results supporting the discharge/admit diagnosis, radiology results, the need for outpatient follow up, a family practitioner, to return to the emergency department if symptoms worsen or persist or if there are any questions or concerns that arise at home. 11/13 18:59 Order name: Chest Single View XRAY; Complete Time: 20:33 kb Administered Medications: 19:17 Drug: Albuterol Inhalation 2.5 mg Inhalation once Route: Inhalation; kt5 20:03 Follow up: Response: No adverse reaction; Marked relief of symptoms kt5 20:35 Drug: Acetaminophen PO 1000 mg PO once Route: PO; kt5 21:06 Follow up: Response: No adverse reaction; Pain is decreased kt5 Disposition: 11/14 07:43 I was immediately available on-site in the Emergency Department for consultation in the ms3 care of the patient. Disposition Summary: 11/13/24 20:41 Discharge Ordered Notes: Location: Home kb Condition: Stable kb Diagnosis - Dyspnea, unspecified kb Followup: kb - With: Emergency Department - When: As needed - Reason: Worsening of condition Followup: kb - With: Private Physician - When: 2 - 3 days - Reason: Recheck today's complaints, Continuance of care, Re-evaluation by your physician Discharge Instructions: - Discharge Summary Sheet kb - Shortness of Breath, Adult, [id number] kb Forms: - Medication Reconciliation Form kb - Antibiotic Education kb - Prescription Opioid Use kb - Patient Portal Instructions kb - Leadership Thank You Letter kb Signatures: Dispatcher [employer] EDMS Cayla Heard, TILE SETTER APPRENTICE-C TILE SETTER APPRENTICE-Frankieb Aida Prieto, RN RN iw Moshe Vegas, DO DO ms3 Bettina Jarrell, RN RN kt5 Corrections: (The following items were deleted from the chart) 11/13 18:59 18:59 Chest Single View+[email or web address] ordered. EDMS EDMS
[2024-11-13 21:15] VITALS: BP 151/92; TEMP 97.3; O2SAT 97
== END 2024-11-13 21:08 | disposition home or self-care (01) ==
LOC: ER 18:42
DX: R06.00 Dyspnea, unspecified (principal); E11.9 Type 2 diabetes mellitus without complications; I10 Essential (primary) hypertension; J44.9 Chronic obstructive pulmonary disease, unspecified; Z95.0 Presence of cardiac pacemaker; Z91.013 Allergy to seafood; Z88.8 Allergy status to other drugs, medicaments and biological substances
CPT/HCPCS: 71045; 99284; J7613